=== PATIENT | female | born 1980 | race Caucasian/White ===

== ENCOUNTER 2018-01-14 14:02 | Emergency (ER) | payer OTHER ==
--- NOTE | 2018-01-14 15:33 | EDPHYS ---
Physician Documentation [facility] Name: Ana Davis Age: 37 yrs Sex: Female : 1980 Arrival Date: 01/14/2018 Time: 14:07 Bed 19 Private MD: None, None ED Physician Herman Cortez HPI: 01/14 14:33 This 37 yrs old Female presents to ER via Ambulatory with complaints of snw Weakness, Sore Throat. 14:33 The patient presents with sore throat. snw 14:33 The patient presents with sore throat. The patient describes throat pain as raw. Onset: snw The symptoms/episode began/occurred suddenly, yesterday. Severity of symptoms: At their worst the symptoms were moderate. Associated signs and symptoms: Pertinent positives: flu-like symptoms, malaise, Sore throat. The patient has not experienced similar symptoms in the past. It is unknown whether or not the patient has recently seen a physician. 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 - Social history:: Smoking status: Patient/guardian denies using tobacco. - Ebola Screening: : Patient negative for fever greater than or equal to 101.5 degrees Fahrenheit, and additional compatible Ebola Virus Disease symptoms Patient denies exposure to infectious person Patient denies travel to an Ebola-affected area in the 21 days before illness onset No symptoms or risks identified at this time. ROS: 14:32 Constitutional: Negative for fever, chills, and weight loss, fatigue and malaise x yest snw and today Eyes: Negative for injury, pain, redness, and discharge, ENT: Negative for injury and discharge, + sore throat Neck: Negative for injury, pain, and swelling, Cardiovascular: Negative for chest pain, palpitations, and edema, Respiratory: Negative for shortness of breath, cough, wheezing, and pleuritic chest pain, Abdomen/GI: Negative for abdominal pain, nausea, vomiting, diarrhea, and constipation, Back: Negative for injury and pain, : Negative for injury, bleeding, discharge, and swelling, MS/Extremity: Negative for injury and deformity, Skin: Negative for injury, rash, and discoloration, Neuro: Negative for headache, weakness, numbness, tingling, and seizure. Exam: 14:31 Constitutional: This is a well developed, well nourished patient who is awake, alert, snw and in no acute distress. Head/Face: Normocephalic, atraumatic. Eyes: Pupils equal round and reactive to light, extra-ocular motions intact. Lids and lashes normal. Conjunctiva and sclera are non-icteric and not injected. Cornea within normal limits. Periorbital areas with no swelling, redness, or edema. ENT: Nares patent. No nasal discharge, no septal abnormalities noted. Tympanic membrane normal to right, fluid visible behind TM left and external auditory canals are clear. Oropharynx with mild redness, no swelling, or masses, exudates, or evidence of obstruction, uvula midline. Mucous membranes moist. Neck: Trachea midline, no thyromegaly or masses palpated, and no cervical lymphadenopathy. Supple, full range of motion without nuchal rigidity, or vertebral point tenderness. No Meningismus. Chest/axilla: Normal chest wall appearance and motion. Nontender with no deformity. No lesions are appreciated. Cardiovascular: Regular rate and rhythm with a normal S1 and S2. No gallops, murmurs, or rubs. Normal PMI, no JVD. No pulse deficits. Respiratory: Lungs have equal breath sounds bilaterally, clear to auscultation and percussion. No rales, rhonchi or wheezes noted. No increased work of breathing, no retractions or nasal flaring. Abdomen/GI: Soft, non-tender, with normal bowel sounds. No distension or tympany. No guarding or rebound. No evidence of tenderness throughout. Back: No spinal tenderness. No costovertebral tenderness. Full range of motion. Skin: Warm, dry with normal turgor. Normal color with no rashes, no lesions, and no evidence of cellulitis. MS/ Extremity: Pulses equal, no cyanosis. Neurovascular intact. Full, normal range of motion. Neuro: Awake and alert, GCS 15, oriented to person, place, time, and situation. Cranial nerves II-XII grossly intact. Motor strength 5/5 in all extremities. Sensory grossly intact. Cerebellar exam normal. Normal gait. Vital Signs: 14:19 BP 110 / 69; Pulse 75 MON; Resp 14 S; Temp 98.7; Pulse Ox 97% on R/A; Weight 58.06 kg sg (R); Pain 3/10; MDM: 14:19 Patient medically screened. snw 15:36 Data reviewed: vital signs, nurses notes. Data interpreted: Pulse oximetry: on room air snw is 97 %. Interpretation: normal. Counseling: I had a detailed discussion with the patient and/or guardian regarding: the historical points, exam findings, and any diagnostic results supporting the discharge/admit diagnosis, lab results, the need for outpatient follow up, to return to the emergency department if symptoms worsen or persist or if there are any questions or concerns that arise at home. Special discussion: Based on the history and exam findings, there is no indication for further emergent testing or inpatient evaluation. I discussed with the patient/guardian the need to see the primary care provider for further evaluation of the symptoms. 01/14 14:19 Order name: Strep; Complete Time: 15:30 snw 01/14 15:25 Order name: Throat Culture EDMS Administered Medications: 16:17 Not Given (Patient Refused): Decadron 8 mg PO once aj1 Disposition: 01/15 06:46 Co-signature as Attending Physician, Herman Cortez MD I agree with the assessment and janet plan of care. Disposition: 01/14/18 15:33 Discharged to Home. Impression: Acute pharyngitis. - Condition is Stable. - Discharge Instructions: Pharyngitis, Rehydration, Adult. - Medication Reconciliation Form, Thank You Letter, Antibiotic Education, Prescription Opioid Use form. - Follow up: Private Physician; When: 2 - 3 days; Reason: Recheck today's complaints, Continuance of care, Re-evaluation by your physician. Follow up: Emergency Department; When: As needed; Reason: Worsening of condition. - Problem is new. - Symptoms are unchanged. Signatures: Dispatcher [employer] EDMacey Ga RN RN aj1 Jasbir Landers RN RN sg Anderson, Corey, MD MD cha Therrien, Shelly, SUPERVISOR PROP MAKING-C SUPERVISOR PROP MAKING-Csnw Corrections: (The following items were deleted from the chart) 01/14 16:19 15:33 01/14/2018 15:33 Discharged to Home. Impression: Acute pharyngitis. Condition is aj1 Stable. Forms are Medication Reconciliation Form, Thank You Letter, Antibiotic Education, Prescription Opioid Use. Follow up: Private Physician; When: 2 - 3 days; Reason: Recheck today's complaints, Continuance of care, Re-evaluation by your physician. Follow up: Emergency Department; When: As needed; Reason: Worsening of condition. Problem is new. Symptoms are unchanged. snw
--- NOTE | 2018-01-14 15:33 | ER ---
Nurse's Notes [facility] Name: Ana Davis Age: 37 yrs Sex: Female : 1980 Arrival Date: 01/14/2018 Time: 14:07 Bed 19 Private MD: None, None Diagnosis: Acute pharyngitis Presentation: 01/14 14:18 Presenting complaint: Patient states: Fatigue that started about two days ago, reports sg sore throat today with white patches in back of throat. Transition of care: patient was not received from another setting of care. No acute neurological deficit is noted. Onset of symptoms was January 14, 2018. Risk Assessment: Do you want to hurt yourself or someone else? Patient reports no desire to harm self or others. Initial Sepsis Screen: Does the patient meet any 2 criteria? No. Patient's initial sepsis screen is negative. Does the patient have a suspected source of infection? No. Patient's initial sepsis screen is negative. Care prior to arrival: None. 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 - Social history:: Smoking status: Patient/guardian denies using tobacco. - Ebola Screening: : Patient negative for fever greater than or equal to 101.5 degrees Fahrenheit, and additional compatible Ebola Virus Disease symptoms Patient denies exposure to infectious person Patient denies travel to an Ebola-affected area in the 21 days before illness onset No symptoms or risks identified at this time. Screenin:07 Abuse screen: Denies threats or abuse. Denies injuries from another. Nutritional aj1 screening: No deficits noted. Tuberculosis screening: No symptoms or risk factors identified. 16:19 Fall Risk None identified. aj1 Assessment: 15:07 General: Appears in no apparent distress. uncomfortable, Reports fatigue for. Pain: aj1 Complains of pain in left aspect of posterior pharynx and right aspect of posterior pharynx. Neuro: Level of Consciousness is awake, alert, obeys commands. Cardiovascular: Patient's skin is warm and dry. Respiratory: Airway is patent Respiratory effort is even, unlabored, Respiratory pattern is regular, symmetrical. GI: No signs and/or symptoms were reported involving the gastrointestinal system. : No signs and/or symptoms were reported regarding the genitourinary system. EENT: Throat is reddened bilaterally Reports pain with swallowing. Derm: No signs and/or symptoms reported regarding the dermatologic system. Skin is pink, warm \T\ dry. normal. Musculoskeletal: No signs and/or symptoms reported regarding the musculoskeletal system. Circulation, motion, and sensation intact. 16:18 Reassessment: Patient appears in no apparent distress at this time. No changes from aj1 previously documented assessment. Patient and/or family updated on plan of care and expected duration. Pain level reassessed. Patient is alert, oriented x 3, equal unlabored respirations, skin warm/dry/pink. Vital Signs: 14:19 BP 110 / 69; Pulse 75 MON; Resp 14 S; Temp 98.7; Pulse Ox 97% on R/A; Weight 58.06 kg sg (R); Pain 3/10; ED Course: 14:07 Patient arrived in ED. sb2 14:08 None, None is Private Physician. sb2 14:18 Triage completed. sg 14:19 Kajal Villa F[facility]-C [facility]. snw 14:19 Herman Cortez MD is Attending Physician. snw 14:27 Macey Davis, IVY is Primary Nurse. aj1 15:07 Patient has correct armband on for positive identification. Bed in low position. Call aj1 light in reach. Side rails up X 1. 15:07 No provider procedures requiring assistance completed. aj1 16:18 Patient did not have IV access during this emergency room visit. aj1 Administered Medications: 16:17 Not Given (Patient Refused): Decadron 8 mg PO once aj1 Outcome: 15:33 Discharge ordered by . snw 16:19 Discharged to home ambulatory. aj1 16:19 Condition: good 16:19 Discharge instructions given to patient, Instructed on discharge instructions, follow up and referral plans. Demonstrated understanding of instructions, follow-up care. 16:19 Patient left the ED. aj1 Signatures: Macey Davis RN RN aj Jasbir Landers RN RN Kajal Villa FNP-C FNP-Csnw Kavitha Tejeda sb2
[2018-01-14] MEDS ORDERED: DEXAMETHASONE 4 MG TAB ONE (16:04)
== END 2018-01-14 16:19 | disposition home or self-care (01) ==
LOC: ER 14:02
DX: J02.9 Acute pharyngitis, unspecified (principal); Z88.1 Allergy status to other antibiotic agents
CPT/HCPCS: 87070; 87081; 99281

== ENCOUNTER 2018-03-23 20:22 | Emergency (ER) | payer OTHER ==
--- NOTE | 2018-03-23 22:08 | EDPHYS ---
Physician Documentation [facility] Name: Ana Davis Age: 37 yrs Sex: Female : 1980 Arrival Date: 03/23/2018 Time: 20:23 Bed 17 Private MD: ED Physician Herman Cortez HPI: 03/23 22:04 This 37 yrs old Female presents to ER via Ambulatory with complaints of Nasal snw Congestion, Body Aches. 22:04 The patient or guardian reports flu symptoms, arthralgias, low-grade fever, myalgias, snw no appetite. Onset: The symptoms/episode began/occurred acutely. Severity of symptoms: At their worst the symptoms were moderate. Associated signs and symptoms: The patient has no apparent associated signs or symptoms. The patient has not experienced similar symptoms in the past, but family has similar symptoms, daughter. The patient has not recently seen a physician. 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 - Social history:: Smoking status: Patient/guardian denies using tobacco. - Ebola Screening: : No symptoms or risks identified at this time. ROS: 22:04 Eyes: Negative for injury, pain, redness, and discharge, ENT: Negative for injury, snw pain, and discharge, Neck: Negative for injury, pain, and swelling, Cardiovascular: Negative for chest pain, palpitations, and edema, Respiratory: Negative for shortness of breath, cough, wheezing, and pleuritic chest pain. 22:04 Abdomen/GI: Negative for abdominal pain, nausea, vomiting, diarrhea, and constipation. 22:04 : Negative for injury, bleeding, discharge, and swelling, MS/Extremity: Negative for injury and deformity, Skin: Negative for injury, rash, and discoloration, Neuro: Negative for headache, weakness, numbness, tingling, and seizure. 22:04 Constitutional: Positive for body aches, fever, malaise, poor PO intake. 22:04 Back: Positive for pain at rest, of the low back area. Exam: 22:02 Head/Face: Normocephalic, atraumatic. Eyes: Pupils equal round and reactive to light, snw extra-ocular motions intact. Lids and lashes normal. Conjunctiva and sclera are non-icteric and not injected. Cornea within normal limits. Periorbital areas with no swelling, redness, or edema. 22:02 Neck: Trachea midline, no thyromegaly or masses palpated, and no cervical lymphadenopathy. Supple, full range of motion without nuchal rigidity, or vertebral point tenderness. No Meningismus. Chest/axilla: Normal chest wall appearance and motion. Nontender with no deformity. No lesions are appreciated. Cardiovascular: Regular rate and rhythm with a normal S1 and S2. No gallops, murmurs, or rubs. Normal PMI, no JVD. No pulse deficits. Respiratory: Lungs have equal breath sounds bilaterally, clear to auscultation and percussion. No rales, rhonchi or wheezes noted. No increased work of breathing, no retractions or nasal flaring. Abdomen/GI: Soft, non-tender, with normal bowel sounds. No distension or tympany. No guarding or rebound. No evidence of tenderness throughout. Back: No spinal tenderness. No costovertebral tenderness. Full range of motion. Skin: Warm, dry with normal turgor. Normal color with no rashes, no lesions, and no evidence of cellulitis. MS/ Extremity: Pulses equal, no cyanosis. Neurovascular intact. Full, normal range of motion. Neuro: Awake and alert, GCS 15, oriented to person, place, time, and situation. Cranial nerves II-XII grossly intact. Motor strength 5/5 in all extremities. Sensory grossly intact. Cerebellar exam normal. Normal gait. 22:02 Constitutional: The patient appears alert, awake, anxious. 22:02 ENT: External ear(s): are unremarkable, Ear canal(s): are normal, TM's: are normal, Nose: Nasal mucosa: edematous, Mouth: is normal, Posterior pharynx: is normal, Voice: is normal. Vital Signs: 20:57 BP 141 / 67; Pulse 98; Resp 16; Temp 99.8(O); Pulse Ox 100% on R/A; Weight 58.06 kg; lp1 Height 5 ft. 8 in. (172.72 cm); Pain 5/10; 22:37 BP 135 / 60; Pulse 88; Resp 18; Temp 98.7(O); Pulse Ox 99% ; ea 20:57 Body Mass Index 19.46 (58.06 kg, 172.72 cm) lp1 MDM: 21:51 Patient medically screened. [facility] 22:08 Data reviewed: vital signs, nurses notes. Data interpreted: Pulse oximetry: on room air snw is 100 %. Interpretation: normal. Counseling: I had a detailed discussion with the patient and/or guardian regarding: the historical points, exam findings, and any diagnostic results supporting the discharge/admit diagnosis, the presence of at least one elevated blood pressure reading (>120/80) during this emergency department visit, lab results, the need for outpatient follow up, to return to the emergency department if symptoms worsen or persist or if there are any questions or concerns that arise at home. Special discussion: Based on the history and exam findings, there is no indication for further emergent testing or inpatient evaluation. I discussed with the patient/guardian the need to see the primary care provider for further evaluation of the symptoms. 03/23 21:02 Order name: Flu; Complete Time: 21:48 lp1 03/23 21:02 Order name: Strep; Complete Time: 21:46 lp1 03/23 21:46 Order name: Throat Culture EDMS 03/23 22:02 Order name: Urine Culture snw 03/23 22:02 Order name: Urine Microscopic Only; Complete Time: 22:25 snw 03/23 22:08 Order name: Urine Dipstick--Ancillary (enter results); Complete Time: 22:25 ms 03/23 22:02 Order name: Urine Test (obtain specimen); Complete Time: 22:06 snw 03/23 22:02 Order name: Urine Dipstick-Ancillary (obtain specimen); Complete Time: 22:06 snw 03/23 22:08 Order name: Urine --Ancillary (enter results); Complete Time: 22:25 ms Administered Medications: No medications were administered Disposition: 03/24 07:39 Co-signature as Attending Physician, Herman Cortez MD I agree with the assessment and [facility] plan of care. Disposition: 03/23/18 22:07 Discharged to Home. Impression: Viral infection, unspecified. - Condition is Stable. - Discharge Instructions: Fever, Adult, Viral Respiratory Infection, Rehydration, Adult. - Prescriptions for Diclofenac Sodium 75 mg Oral Tablet Sustained Release - take 1 tablet by ORAL route 2 times per day; 30 tablet. orphenadrine citrate 100 mg Oral Tablet Sustained Release - take 1 tablet by ORAL route 2 times per day As needed; 20 tablet. - Work release form, Medication Reconciliation Form, Thank You Letter, Antibiotic Education, Prescription Opioid Use form. - Follow up: Private Physician; When: 2 - 3 days; Reason: Recheck today's complaints, Continuance of care, Re-evaluation by your physician. Signatures: Dispatcher [employer] EDMS Herman Cortez MD MD cha Therrien, Shelly, JOINT TERMINAL ATTACK CONTROLLER-C JOINT TERMINAL ATTACK CONTROLLER-Csnw Anna Edmond, RN RN lp1 Rachel Easley RN RN ea Corrections: (The following items were deleted from the chart) 03/23 22:38 22:07 03/23/2018 22:07 Discharged to Home. Impression: Viral infection, unspecified. ea Condition is Stable. Forms are Medication Reconciliation Form, Thank You Letter, Antibiotic Education, Prescription Opioid Use. Follow up: Private Physician; When: 2 - 3 days; Reason: Recheck today's complaints, Continuance of care, Re-evaluation by your physician. snw
--- NOTE | 2018-03-23 22:08 | ER ---
Nurse's Notes [facility] Name: Ana Davis Age: 37 yrs Sex: Female : 1980 Arrival Date: 03/23/2018 Time: 20:23 Bed 17 Private MD: Diagnosis: Viral infection, unspecified Presentation: 03/23 20:55 Presenting complaint: Patient states: Cough, congestion, sore throat, generalized lp1 weakness since last night; States daughter had virus but she wants to make sure she doesn't have flu or strep throat, low grade fevers at home. Transition of care: patient was not received from another setting of care. Onset of symptoms was March 23, 2018. Risk Assessment: Do you want to hurt yourself or someone else? Patient reports no desire to harm self or others. Initial Sepsis Screen: Does the patient meet any 2 criteria? No. Patient's initial sepsis screen is negative. Does the patient have a suspected source of infection? No. Patient's initial sepsis screen is negative. Care prior to arrival: None. 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 - Social history:: Smoking status: Patient/guardian denies using tobacco. - Ebola Screening: : No symptoms or risks identified at this time. Screenin:37 Abuse screen: Denies threats or abuse. Nutritional screening: No deficits noted. ea Tuberculosis screening: No symptoms or risk factors identified. Fall Risk None identified. Assessment: 22:36 Reassessment: Discharge instructions given to patient, verbalized the understanding of ea instruction. General: Appears in no apparent distress. Behavior is calm, cooperative, appropriate for age. Pain: Denies pain. Neuro: Level of Consciousness is awake, alert, obeys commands, Oriented to person, place, time, situation. Cardiovascular: Patient's skin is warm and dry. Respiratory: Airway is patent Respiratory effort is even, unlabored, Respiratory pattern is regular, symmetrical, Breath sounds are clear bilaterally. Derm: Skin is pink, warm \T\ dry. Vital Signs: 20:57 BP 141 / 67; Pulse 98; Resp 16; Temp 99.8(O); Pulse Ox 100% on R/A; Weight 58.06 kg; lp1 Height 5 ft. 8 in. (172.72 cm); Pain 5/10; 22:37 BP 135 / 60; Pulse 88; Resp 18; Temp 98.7(O); Pulse Ox 99% ; ea 20:57 Body Mass Index 19.46 (58.06 kg, 172.72 cm) lp1 ED Course: 20:23 Patient arrived in ED. ds1 20:42 Kajal Villa [facility]-C [facility]. snw 20:42 Herman Cortez MD is Attending Physician. snw 20:56 Triage completed. lp1 20:57 Arm band placed on right wrist. lp1 21:02 Flu and/or RSV swab sent to lab. Strep swab sent to lab. lp1 22:06 Rachel Easley, RN is Primary Nurse. ea 22:37 No provider procedures requiring assistance completed. Patient did not have IV access ea during this emergency room visit. Administered Medications: No medications were administered Outcome: 22:07 Discharge ordered by . snw 22:37 Discharged to home ambulatory. ea 22:37 Condition: improved 22:37 Discharge instructions given to patient, Instructed on discharge instructions, follow up and referral plans. medication usage, Demonstrated understanding of instructions, follow-up care, medications, Prescriptions given X 2. 22:38 Patient left the ED. ea Signatures: Kajal Villa FNP-C FNP-Janet Vega ds1 Anna Edmond, RN RN lp1 Rachel Easley, IVY RN ea
[2018-03-23 22:24] LABS: Urine Bacteria <20 /HPF (<20); Urine Culture Reflex Order NOT NEEDED; Urine Mucus 1+ /HPF (NONE SEEN); Urine RBC <5 /HPF (NONE SEEN)
[2018-03-23 22:25] LABS: Urine Blood NEGATIVE (NEG); Urine Glucose NEGATIVE (NEG); Urine Protein NEGATIVE (NEG)
== END 2018-03-23 22:38 | disposition home or self-care (01) ==
LOC: ER 20:22
DX: B34.9 Viral infection, unspecified (principal); Z88.1 Allergy status to other antibiotic agents
CPT/HCPCS: 81003; 81015; 81025; 87070; 87081; 87086; 87088; 87804; 99283

== ENCOUNTER 2018-07-30 20:52 | Emergency (ER) | payer OTHER ==
[2018-07-30 22:35] LABS: Absolute Lymphocytes (CBC) 1.9 K/uL (0.7-4.9); Absolute Monocytes 0.5 K/uL (0.1-1.3); Absolute Neutrophil 4.4 K/uL (1.8-8.0); Basophils % 0.4 % (0-1.3); Hematocrit 39.1 % (36.0-45.0); Lymphocytes % 27.6 % (15.3-44.8); MPV 9.8 fL (7.6-11.3); Monocytes % 6.6 % (3.3-12.3); RBC Red Blood Cell Count 4.21 M/uL (3.86-4.86)
[2018-07-30 22:37] LABS: Protime INR 1.03
[2018-07-30 22:51] LABS: BUN Blood Urea Nitrogen 20 mg/dL (7-18); Bicarbonate 29 mmol/L (21-32); Glucose Level 94 mg/dL (74-106); Potassium 3.8 mmol/L (3.5-5.1); Sodium Level 139 mmol/L (136-145)
[2018-07-30 22:52] LABS: ALT/SGPT 30 U/L (12-78); AST/SGOT 18 U/L (15-37); Albumin 4.1 g/dL (3.4-5.0); Alkaline Phosphatase 61 U/L (45-117); Bilirubin Direct < 0.1 mg/dL (0-0.2); Bilirubin Total 0.3 mg/dL (0.2-1.0); Magnesium 2.2 mg/dL (1.8-2.4); NT PRO-BNP 45 pg/mL (<125); Protein, Total 7.3 g/dL (6.4-8.2); Troponin (Emerg Dept Use Only) < 0.02 ng/mL (0.0-0.045)
--- NOTE | 2018-07-31 00:42 | EDPHYS ---
Physician Documentation [facility] Name: Ana Davis Age: 37 yrs Sex: Female : 1980 Arrival Date: 07/30/2018 Time: 20:54 Bed 5 Private MD: ED Physician Epi Wilson HPI: 07/31 00:04 This 37 yrs old Female presents to ER via Ambulatory with complaints of Chest tw4 Pain, Arm Pain. 00:04 The patient or guardian reports chest pain that is located primarily in the substernal tw4 area. The pain does not radiate. Associated signs and symptoms: The patient has no apparent associated signs or symptoms. The chest pain is described as dull. Duration: The patient or guardian reports a single episode, that is now resolved. Duration: The patient or guardian reports a single episode, that lasted 5 minute(s). Modifying factors: The symptoms are alleviated by nothing. the symptoms are aggravated by nothing. The patient has not recently seen a physician. 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 - Social history:: Smoking status: Patient/guardian denies using tobacco. - Ebola Screening: : Patient denies travel to an Ebola-affected area in the 21 days before illness onset. ROS: 07/31 00:04 Constitutional: Negative for fever, chills, and weight loss, Eyes: Negative for injury, tw4 pain, redness, and discharge, Respiratory: Negative for shortness of breath, cough, wheezing, and pleuritic chest pain, Abdomen/GI: Negative for abdominal pain, nausea, vomiting, diarrhea, and constipation, Back: Negative for injury and pain, MS/Extremity: Negative for injury and deformity, Skin: Negative for injury, rash, and discoloration, Neuro: Negative for headache, weakness, numbness, tingling, and seizure. Cardiovascular: Positive for chest pain, Negative for edema, orthopnea, palpitations. Exam: 00:04 Constitutional: This is a well developed, well nourished patient who is awake, alert, tw4 and in no acute distress. Head/Face: Normocephalic, atraumatic. Chest/axilla: Normal chest wall appearance and motion. Nontender with no deformity. No lesions are appreciated. Cardiovascular: Regular rate and rhythm with a normal S1 and S2. No gallops, murmurs, or rubs. Normal PMI, no JVD. No pulse deficits. Respiratory: Lungs have equal breath sounds bilaterally, clear to auscultation and percussion. No rales, rhonchi or wheezes noted. No increased work of breathing, no retractions or nasal flaring. Abdomen/GI: Soft, non-tender, with normal bowel sounds. No distension or tympany. No guarding or rebound. No evidence of tenderness throughout. Back: No spinal tenderness. No costovertebral tenderness. Full range of motion. MS/ Extremity: Pulses equal, no cyanosis. Neurovascular intact. Full, normal range of motion. Neuro: Awake and alert, GCS 15, oriented to person, place, time, and situation. Cranial nerves II-XII grossly intact. Motor strength 5/5 in all extremities. Sensory grossly intact. Cerebellar exam normal. Normal gait. Vital Signs: 07/30 21:04 BP 129 / 76; Pulse 85; Resp 18; Temp 97.8; Pulse Ox 99% on R/A; Weight 60.78 kg (R); aj1 Height 5 ft. 8 in. (172.72 cm) (R); Pain 2/10; 23:00 BP 113 / 76; Pulse 73; Resp 17; Pulse Ox 100% on R/A; Pain 0/10; tl1 07/31 00:32 BP 109 / 59; Pulse 75; Resp 17; Pulse Ox 99% on R/A; Pain 0/10; tl1 07/30 21:04 Body Mass Index 20.37 (60.78 kg, 172.72 cm) aj1 MDM: 07/30 21:17 Patient medically screened. tw4 07/31 00:40 Differential diagnosis: abnormal EKG, acute myocardial infarction, coronary artery tw4 disease chest wall pain, pulmonary embolus, thoracic aortic disection. Data reviewed: vital signs, nurses notes. Data interpreted: night monitor: rhythm is normal sinus rhythm, Pulse oximetry: Interpretation: normal. Test interpretation: by ED physician or midlevel provider: ECG. Counseling: I had a detailed discussion with the patient and/or guardian regarding: the historical points, exam findings, and any diagnostic results supporting the discharge/admit diagnosis, lab results, radiology results. Special discussion: Based on the patient's history, exam, and Dx evaluation, there is no indication for emergent intervention or inpatient Tx. It is understood by the patient/guardian that if the Sx's persist or worsen they need to return immediately for re-evaluation. I discussed with the patient/guardian in detail that at this point there is no indication for admission to the hospital. It is understood, however, that if the symptoms persist or worsen the patient needs to return immediately for re-evaluation. 07/30 21:23 Order name: Basic Metabolic Panel; Complete Time: 23:25 tw07/30 23:25 Interpretation: Normal except: BUN 20; GFR 71. tw07/30 21:23 Order name: CBC with Diff; Complete Time: 23:46 tw4 07/30 23:46 Interpretation: Abnormal: RDW 12.0. tw07/30 21:23 Order name: LFT's [facility] 07/30 21:23 Order name: Magnesium tw 07/30 21:23 Order name: NT PRO-BNP 07/30 21:23 Order name: PT-INR 07/30 21:23 Order name: Troponin (emerg Dept Use Only) tw 07/30 21:23 Order name: EKG; Complete Time: 22:25 tw07/30 21:23 Order name: Cardiac monitoring; Complete Time: 21:28 07/30 21:23 Order name: EKG - Nurse/Tech; Complete Time: 21:28 07/30 21:23 Order name: IV Saline Lock; Complete Time: 21:28 07/30 22:23 Order name: Chest Single View EDDC 07/30 23:47 Order name: Troponin (emerg Dept Use Only); Complete Time: 00:40 07/30 21:23 Order name: Labs collected and sent; Complete Time: 21:28 tw07/30 21:23 Order name: O2 Per Protocol; Complete Time: 21:28 07/30 21:23 Order name: O2 Sat Monitoring; Complete Time: 21:28 EC:04 Rate is 86 beats/min. Rhythm is regular. QRS [place] is Normal. [place] interval is normal. QRS tw4 interval is normal. QT interval is normal. No Q waves. T waves are Normal. No ST changes noted. Clinical impression: Normal ECG. Interpreted by me. Reviewed by me. Administered Medications: No medications were administered Disposition: 07/31/18 00:41 Discharged to Home. Impression: Chest pain, unspecified. - Condition is Stable. - Discharge Instructions: Nonspecific Chest Pain, Pain Without a Known Cause, Nonspecific Chest Pain, [id number]. - Prescriptions for Ibuprofen 600 mg Oral Tablet - take 1 tablet by ORAL route every 6 hours As needed take with food; 30 tablet. - Medication Reconciliation Form, Thank You Letter, Antibiotic Education, Prescription Opioid Use form. - Follow up: Private Physician; When: Upon discharge from the Emergency Department; Reason: If symptoms return, Recheck today's complaints, Continuance of care. Follow up: Rudi Delacruz MD; When: Upon discharge from the Emergency Department; Reason: If symptoms return, Recheck today's complaints, Continuance of care. - Problem is new. - Symptoms have improved. Signatures: Dispatcher [employer] [facility] Macey Davis RN RN aj1 Bessy Clifford RN RN tl1 Epi Wilson MD MD tw4 Corrections: (The following items were deleted from the chart) 07/30 22:57 22:25 Chest Single View+RAD.RAD.BRZ ordered. [facility] 07/31 00:42 00:41 07/31/2018 00:41 Discharged to Home. Impression: Chest pain, unspecified. tw4 Condition is Stable. Forms are Medication Reconciliation Form, Thank You Letter, Antibiotic Education, Prescription Opioid Use. Follow up: Private Physician; When: Upon discharge from the Emergency Department; Reason: If symptoms return, Recheck today's complaints, Continuance of care. Problem is new. Symptoms have improved. tw4 01:11 00:42 07/31/2018 00:41 Discharged to Home. Impression: Chest pain, unspecified. tl1 Condition is Stable. Discharge Instructions: Nonspecific Chest Pain, Pain Without a Known Cause, Nonspecific Chest Pain, Xrut-in-Hdxe. Prescriptions for Ibuprofen 600 mg Oral Tablet - take 1 tablet by ORAL route every 6 hours As needed take with food; 30 tablet. and Forms are Medication Reconciliation Form, Thank You Letter, Antibiotic Education, Prescription Opioid Use. Follow up: Private Physician; When: Upon discharge from the Emergency Department; Reason: If symptoms return, Recheck today's complaints, Continuance of care. Follow up: Rudi Delacruz; When: Upon discharge from the Emergency Department; Reason: If symptoms return, Recheck today's complaints, Continuance of care. Problem is new. Symptoms have improved. tw4
--- NOTE | 2018-07-31 00:42 | ER ---
Nurse's Notes [facility] Name: Ana Davis Age: 37 yrs Sex: Female : 1980 Arrival Date: 07/30/2018 Time: 20:54 Bed 5 Private MD: Diagnosis: Chest pain, unspecified Presentation: 07/30 21:01 Presenting complaint: Patient states: "I've gone to several doctors in the past couple aj1 weeks I had an ultrasound and a colonscopy and nothing was found but I have a pain going down my leg so I have a CAT scan set up for a week from tomorrow. Last night I had a weird feeling in my chest. It was gone this morning, but I felt some pressure while I was working out. Then tonight after we ate at [employer] I started having more pain." Reports left sided chest pain that radiates to the left arm and the left side of her back. 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 Transition of care: patient was not received from another setting of care. Onset of symptoms was July 30, 2018. Risk Assessment: Do you want to hurt yourself or someone else? Patient reports no desire to harm self or others. Initial Sepsis Screen: Does the patient meet any 2 criteria? No. Patient's initial sepsis screen is negative. Does the patient have a suspected source of infection? No. Patient's initial sepsis screen is negative. Care prior to arrival: None. 21:01 Method Of Arrival: Ambulatory aj1 21:01 Acuity: CHIP 3 aj1 Triage Assessment: 21:04 General: Appears in no apparent distress. comfortable, Behavior is calm, cooperative, aj1 appropriate for age. Pain: Complains of pain in anterior aspect of left upper chest and left breast Pain radiates to back and left arm Pain currently is 2 out of 10 on a pain scale. Quality of pain is described as pressure, Is intermittent. Neuro: Level of Consciousness is awake, alert, obeys commands. Cardiovascular: Reports chest pain, Patient's skin is warm and dry. Respiratory: Airway is patent Respiratory effort is even, unlabored, Respiratory pattern is regular, symmetrical. 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 - Social history:: Smoking status: Patient/guardian denies using tobacco. - Ebola Screening: : Patient denies travel to an Ebola-affected area in the 21 days before illness onset. Screenin:27 Abuse screen: Denies threats or abuse. Denies injuries from another. Nutritional tl1 screening: No deficits noted. Tuberculosis screening: No symptoms or risk factors identified. Fall Risk IV access (20 points). Assessment: 21:25 General: Appears in no apparent distress. Behavior is calm, cooperative, appropriate tl1 for age. Pain: Complains of pain in left arm and back and chest and left breast and anterior aspect of left upper chest Pain began 1 day ago. Neuro: Level of Consciousness is awake, alert, obeys commands, Oriented to person, place, time, situation. Cardiovascular: Reports chest pain, Capillary refill < 3 seconds JVD is absent Patient's skin is warm and dry. Respiratory: Airway is patent Trachea midline Respiratory effort is even, unlabored, Breath sounds are clear bilaterally. GI: Abdomen is non-distended, Bowel sounds present X 4 quads. Abd is soft and non tender X 4 quads. : No signs and/or symptoms were reported regarding the genitourinary system. EENT: No signs and/or symptoms were reported regarding the EENT system. 21:26 Pain: Pain currently is 2 out of 10 on a pain scale. tl1 Vital Signs: 21:04 BP 129 / 76; Pulse 85; Resp 18; Temp 97.8; Pulse Ox 99% on R/A; Weight 60.78 kg (R); aj1 Height 5 ft. 8 in. (172.72 cm) (R); Pain 2/10; 23:00 BP 113 / 76; Pulse 73; Resp 17; Pulse Ox 100% on R/A; Pain 0/10; tl1 07/31 00:32 BP 109 / 59; Pulse 75; Resp 17; Pulse Ox 99% on R/A; Pain 0/10; tl1 07/30 21:04 Body Mass Index 20.37 (60.78 kg, 172.72 cm) [facility] ED Course: 07/30 20:54 Patient arrived in ED. es 21:04 Triage completed. aj1 21:04 Arm band placed on Patient placed in an exam room. aj1 21:04 Patient has correct armband on for positive identification. 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 Pulse tl1 ox on. NIBP on. 21:17 Epi Wilson MD is Attending Physician. tw4 21:24 Bessy Clifford, RN is Primary Nurse. tl1 21:27 No provider procedures requiring assistance completed. Inserted saline lock: 20 gauge tl1 in right antecubital area, using aseptic technique. Blood collected. Patient maintains SpO2 saturation greater than 95% on room air. 23:02 Chest Single View In Process Unspecified. EDMS 02 00:42 Rudi Delacruz MD is Referral Physician. tw4 01:10 IV discontinued, intact, bleeding controlled, No redness/swelling at site. Pressure tl1 dressing applied. Administered Medications: No medications were administered Outcome: 00:41 Discharge ordered by . tw4 01:10 Discharged to home ambulatory, with family. tl1 01:10 Condition: good 01:10 Discharge instructions given to patient, family, Instructed on discharge instructions, follow up and referral plans. medication usage, Demonstrated understanding of instructions, follow-up care, medications, Prescriptions given X 1. 01:11 Patient left the ED. tl1 Signatures: Dispatcher [employer] Macey Fontenot RN RN Karley Siddiqui Tonya, RN RN tl1 Epi Wilson MD MD tw4 Corrections: (The following items were deleted from the chart) 00:32 02/14 23:00 BP 109 / 59; Pulse 75bpm; Resp 17bpm; Pulse Ox 99% RA; Pain 0/10; tl1 tl1
--- NOTE | 2018-07-31 07:45 | EKG ---
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
--- NOTE | 2018-07-31 08:48 | RAD REPORT ---
EXAM DESCRIPTION: RAD - Chest Single View - 07/30/2018 11:01 pm CLINICAL HISTORY: Chest pain and pressure COMPARISON: None. TECHNIQUE: AP portable chest image was obtained 2238 hours . FINDINGS: Lungs are clear. Heart and vasculature are normal. No measurable pleural effusion and no p neumothorax. No acute bony abnormality seen. No acute aortic findings suspected. IMPRESSION: No acute cardiopulmonary process.
== END 2018-07-31 01:11 | disposition home or self-care (01) ==
LOC: ER 20:52
DX: R07.9 Chest pain, unspecified (principal); Z88.1 Allergy status to other antibiotic agents
CPT/HCPCS: 36415; 71045; 80048; 80076; 83735; 83880; 84484; 85025; 85610; 93005; 99285

== ENCOUNTER 2018-08-07 11:13 | Emergency (ER) | payer OTHER ==
--- NOTE | 2018-08-07 12:05 | ER ---
Nurse's Notes [facility] Name: Ana Davis Age: 37 yrs Sex: Female : 1980 Arrival Date: 08/07/2018 Time: 11:18 Bed 26 Private MD: Diagnosis: Panic disorder [episodic paroxysmal anxiety] without agoraphobia Presentation: 08/07 11:20 Presenting complaint: Patient states: Came from CT after having a CT with contrast ss obtained . Pt reports right after CT she suddenly felt her heart racing and anxiety increase. Pt is concerned because when they checked her blood pressure in CT it was high for her at 148/72 HR 95. Transition of care: patient was not received from another setting of care. Onset of symptoms was August 07, 2018. Risk Assessment: Do you want to hurt yourself or someone else? Patient reports no desire to harm self or others. Initial Sepsis Screen: Does the patient meet any 2 criteria? No. Patient's initial sepsis screen is negative. Does the patient have a suspected source of infection? No. Patient's initial sepsis screen is negative. Care prior to arrival: None. 11:20 Method Of Arrival: Ambulatory ss 11:20 Acuity: CHIP 3 ss 11:25 Risk Assessment: Do you want to hurt yourself or someone else? Patient reports no tw2 desire to harm self or others. Initial Sepsis Screen: Does the patient meet any 2 criteria? No. Patient's initial sepsis screen is negative. Does the patient have a suspected source of infection? No. Patient's initial sepsis screen is negative. Care prior to arrival: None. Triage Assessment: 11:20 General: Appears slender, well groomed, Behavior is anxious. 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 tw2 Historical: - Allergies: 11:25 Bactrim; tw2 - Home Meds: 11:25 None [Active]; tw2 - PMHx: 11:25 None; tw2 - PSHx: 11:25 None; tw2 - Immunization history:: Adult Immunizations. - Social history:: Smoking status: . - Ebola Screening: : Patient denies travel to an Ebola-affected area in the 21 days before illness onset. Screenin:25 Abuse screen: Denies threats or abuse. Nutritional screening: No deficits noted. tw2 Tuberculosis screening: No symptoms or risk factors identified. Fall Risk None identified. Assessment: 11:20 General: Appears in no apparent distress. Behavior is anxious. Pain: Denies pain. tw2 Neuro: Level of Consciousness is awake, alert, obeys commands, Oriented to person, place, time, situation. Cardiovascular: Reports palpitations, after IV contrast dye in CT. Respiratory: Airway is patent Respiratory effort is even, unlabored, Respiratory pattern is regular, symmetrical. GI: No signs and/or symptoms were reported involving the gastrointestinal system. : No signs and/or symptoms were reported regarding the genitourinary system. EENT: No signs and/or symptoms were reported regarding the EENT system. Musculoskeletal: Range of motion: intact in all extremities. 12:09 Reassessment: Patient appears in no apparent distress at this time. No changes from tw2 previously documented assessment. Patient and/or family updated on plan of care and expected duration. Pain level reassessed. Patient is alert, oriented x 3, equal unlabored respirations, skin warm/dry/pink. Vital Signs: 11:24 BP 138 / 88; Pulse 73; Resp 19; Pulse Ox 100% on R/A; tw2 11:25 Weight 58.97 kg; Height 5 ft. 8 in. (172.72 cm); ss 11:25 Pain 0/10; ss 12:09 BP 142 / 75; Pulse 66; Resp 17; Pulse Ox 99% on R/A; tw2 11:25 Body Mass Index 19.77 (58.97 kg, 172.72 cm) ED Course: 11:18 Patient arrived in ED. ss 11:19 Gilmer Tsang PA is PHCP. jr8 11:19 Pepe Medrano MD is Attending Physician. jr8 11:24 Robina Burnett, IVY is Primary Nurse. tw2 11:24 Arm band placed on. tw2 11:24 Bed in low position. Call light in reach. library monitor on. Pulse ox on. NIBP on. tw2 11:25 Triage completed. ss 11:25 EKG done, by phlebotomy services technician. reviewed by Gilmer ARNETT. at1 12:08 IV discontinued, intact, bleeding controlled, No redness/swelling at site. Pressure tw2 dressing applied, 22g IV right ac inserted by Jose Luis Amezcua from CT. 12:09 No provider procedures requiring assistance completed. tw2 Administered Medications: No medications were administered Outcome: 12:05 Discharge ordered by MD. fagan 12: Discharged to home ambulatory. tw 12: Condition: stable 12:09 Discharge instructions given to patient, friend, Instructed on discharge instructions, follow up and referral plans. Demonstrated understanding of instructions, follow-up care. 12:09 Patient left the ED. tw2 Signatures: Kaitlin Mcneill RN RN Gilmer Tsang PA PA jr8 Sabina Fontana, parts sales associate EKG Tat1 Robina Burnett, RN RN tw2
--- NOTE | 2018-08-07 12:05 | EDPHYS ---
Physician Documentation [facility] Name: Ana Davis Age: 37 yrs Sex: Female : 1980 Arrival Date: 08/07/2018 Time: 11:18 Bed 26 Private MD: ED Physician Pepe Medrano HPI: 08/07 11:53 This 37 yrs old Female presents to ER via Ambulatory with complaints of jr8 Anxiety. 11:53 Onset: The symptoms/episode began/occurred acutely, today. Associated signs and jr8 symptoms: Pertinent positives: palpitations. Modifying factors: The patient symptoms are alleviated by nothing, the patient symptoms are aggravated by nothing. The patient has not experienced similar symptoms in the past. The patient has not recently seen a physician. Patient had just finished having CT with IV contrast as out patient. Started to feel anxious and had palpitations. Was brought to ED at that time for further evaluation. 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 tw2 Historical: - Allergies: 11:25 Bactrim; tw2 - Home Meds: 11:25 None [Active]; tw2 - PMHx: 11:25 None; tw2 - PSHx: 11:25 None; tw2 - Immunization history:: Adult Immunizations. - Social history:: Smoking status: . - Ebola Screening: : Patient denies travel to an Ebola-affected area in the 21 days before illness onset. ROS: 11:53 Eyes: Negative for injury, pain, redness, and discharge, ENT: Negative for injury, jr8 pain, and discharge, Neck: Negative for injury, pain, and swelling, Respiratory: Negative for shortness of breath, cough, wheezing, and pleuritic chest pain, Abdomen/GI: Negative for abdominal pain, nausea, vomiting, diarrhea, and constipation, Back: Negative for injury and pain, MS/Extremity: Negative for injury and deformity, Skin: Negative for injury, rash, and discoloration, Neuro: Negative for headache, weakness, numbness, tingling, and seizure. 11:53 Cardiovascular: Positive for palpitations, Negative for chest pain, edema, orthopnea, paroxysmal nocturnal dyspnea. 11:53 Psych: Positive for anxiety. Exam: 11:53 Eyes: Pupils equal round and reactive to light, extra-ocular motions intact. Lids and jr8 lashes normal. Conjunctiva and sclera are non-icteric and not injected. Cornea within normal limits. Periorbital areas with no swelling, redness, or edema. ENT: Nares patent. No nasal discharge, no septal abnormalities noted. Tympanic membranes are normal and external auditory canals are clear. Oropharynx with no redness, swelling, or masses, exudates, or evidence of obstruction, uvula midline. Mucous membranes moist. Neck: Trachea midline, no thyromegaly or masses palpated, and no cervical lymphadenopathy. Supple, full range of motion without nuchal rigidity, or vertebral point tenderness. No Meningismus. Cardiovascular: Regular rate and rhythm with a normal S1 and S2. No gallops, murmurs, or rubs. Normal PMI, no JVD. No pulse deficits. Respiratory: Lungs have equal breath sounds bilaterally, clear to auscultation and percussion. No rales, rhonchi or wheezes noted. No increased work of breathing, no retractions or nasal flaring. Abdomen/GI: Soft, non-tender, with normal bowel sounds. No distension or tympany. No guarding or rebound. No evidence of tenderness throughout. Back: No spinal tenderness. No costovertebral tenderness. Full range of motion. Skin: Warm, dry with normal turgor. Normal color with no rashes, no lesions, and no evidence of cellulitis. MS/ Extremity: Pulses equal, no cyanosis. Neurovascular intact. Full, normal range of motion. Neuro: Awake and alert, GCS 15, oriented to person, place, time, and situation. Cranial nerves II-XII grossly intact. Motor strength 5/5 in all extremities. Sensory grossly intact. Cerebellar exam normal. Normal gait. Vital Signs: 11:24 BP 138 / 88; Pulse 73; Resp 19; Pulse Ox 100% on R/A; tw2 11:25 Weight 58.97 kg; Height 5 ft. 8 in. (172.72 cm); ss 11:25 Pain 0/10; ss 12:09 BP 142 / 75; Pulse 66; Resp 17; Pulse Ox 99% on R/A; tw2 11:25 Body Mass Index 19.77 (58.97 kg, 172.72 cm) MDM: 11:19 Patient medically screened. [facility] 11:53 Data reviewed: vital signs, nurses notes, EKG, and as a result, I will discharge jr8 patient. Data interpreted: Pulse oximetry: on room air is 100 %. Interpretation: normal. Counseling: I had a detailed discussion with the patient and/or guardian regarding: the historical points, exam findings, and any diagnostic results supporting the discharge/admit diagnosis, the need for outpatient follow up, a family practitioner, to return to the emergency department if symptoms worsen or persist or if there are any questions or concerns that arise at home. Response to treatment: the patient's symptoms have resolved after treatment. 11:53 ED course: Patient feeling much better after knowing ECG was normal and no other acute jr8 findings found. Will f/u with PCP for anxiety which she knows she has along with OCD since 10 years old. Currently not medicated but getter worse per patient . 08/07 11:53 Order name: EKG - Nurse/Tech; Complete Time: 11:53 jr8 Administered Medications: No medications were administered Disposition: 15:35 Co-signature as Attending Physician, Pepe Medrano MD I agree with the assessment and kdr plan of care. Disposition: 08/07/18 12:05 Discharged to Home. Impression: Panic disorder [episodic paroxysmal anxiety] without agoraphobia. - Condition is Stable. - Discharge Instructions: Panic Attacks. - Medication Reconciliation Form, Thank You Letter, Antibiotic Education, Prescription Opioid Use, Work release form form. - Follow up: Private Physician; When: 2 - 3 days; Reason: Recheck today's complaints, Continuance of care, Re-evaluation by your physician. - Problem is new. - Symptoms have improved. Signatures: Pepe Medrano MD MD kdr Roszak, Josh, PA PA jr8 Robina Burnett RN RN tw2 Corrections: (The following items were deleted from the chart) 12:09 12:05 08/07/2018 12:05 Discharged to Home. Impression: Panic disorder [episodic tw2 paroxysmal anxiety] without agoraphobia. Condition is Stable. Forms are Medication Reconciliation Form, Thank You Letter, Antibiotic Education, Prescription Opioid Use. Follow up: Private Physician; When: 2 - 3 days; Reason: Recheck today's complaints, Continuance of care, Re-evaluation by your physician. Problem is new. Symptoms have improved. jr8
--- NOTE | 2018-08-08 08:56 | EKG ---
Test Date: 2018-08-07 Test Time: 11:13:55 Senior Ruby Developer: YING MEASUREMENT RESULTS: Intervals: Rate: 84 ND: 116 QRSD: 86 QT: 394 QTc: 465 [place]: P: 67 ND: 116 QRS: 91 T: 57 INTERPRETIVE STATEMENTS: Normal sinus rhythm Rightward axis Borderline ECG Compared to ECG 07/30/2018 21:19:05 Right-axis deviation now present Electronically Signed On 08-08-18 08:55:35 AFRICAN HISTORY PROFESSOR by Rudi Delacruz
== END 2018-08-07 12:09 | disposition home or self-care (01) ==
LOC: ER 11:13
DX: F41.0 Panic disorder [episodic paroxysmal anxiety] (principal); Z88.1 Allergy status to other antibiotic agents
CPT/HCPCS: 93005; 99284

== ENCOUNTER 2018-08-09 18:22 | Emergency (ER) | payer OTHER ==
--- NOTE | 2018-08-09 18:54 | ER ---
Nurse's Notes [facility] Name: Ana Davis Age: 37 yrs Sex: Female : 1980 Arrival Date: 08/09/2018 Time: 18:25 Bed 27 Private MD: Diagnosis: Anxiety disorder, unspecified Presentation: 08/09 18:42 Presenting complaint: Patient states: My BP has been running high lately (140s) and I la1 just checked it at [facility] and it was high and I could see my heart beating through my shirt and it freaked me out. Transition of care: patient was not received from another setting of care. Onset of symptoms was August 09, 2018. Risk Assessment: Do you want to hurt yourself or someone else? Patient reports no desire to harm self or others. Initial Sepsis Screen: Does the patient meet any 2 criteria? No. Patient's initial sepsis screen is negative. Does the patient have a suspected source of infection? No. Patient's initial sepsis screen is negative. Care prior to arrival: None. 18:42 Method Of Arrival: Ambulatory la1 18:42 Acuity: CHIP 3 la1 Historical: - Allergies: 18:43 Bactrim; la1 - PMHx: 18:43 None; la1 - Immunization history:: Adult Immunizations not up to date. - Social history:: Smoking status: Patient/guardian denies using tobacco. - Ebola Screening: : No symptoms or risks identified at this time. Screenin:11 Abuse screen: Denies threats or abuse. Denies injuries from another. Nutritional rv screening: No deficits noted. Tuberculosis screening: No symptoms or risk factors identified. Fall Risk None identified. Assessment: 19:10 General: Appears in no apparent distress. uncomfortable, Behavior is anxious. Pain: rv Denies pain. Neuro: Level of Consciousness is awake, alert, obeys commands, Oriented to person, place, time, situation. Cardiovascular: Capillary refill < 3 seconds Rhythm is regular. Respiratory: Airway is patent. GI: No signs and/or symptoms were reported involving the gastrointestinal system. : No signs and/or symptoms were reported regarding the genitourinary system. EENT: No signs and/or symptoms were reported regarding the EENT system. Derm: Skin is intact. 19:11 Pain: Pain does not radiate. rv Vital Signs: 18:43 BP 138 / 81; Pulse 92; Resp 16; Temp 98.2; Pulse Ox 98% on R/A; la1 18:43 Weight 72.57 kg; rv 19:10 BP 128 / 84; Pulse 88; Resp 18 S; Pulse Ox 100% on R/A; rv ED Course: 18:25 Patient arrived in ED. ds1 18:33 [facility] snw 18:33 Herman Cortez MD is Attending Physician. snw 18:41 Isidro Bassett, RN is Primary Nurse. la1 18:42 Triage completed. la1 18:43 Arm band placed on right wrist. la1 19:11 Patient has correct armband on for positive identification. Bed in low position. Call rv light in reach. Side rails up X 1. Pulse ox on. NIBP on. 19:11 No provider procedures requiring assistance completed. Patient did not have IV access rv during this emergency room visit. Patient maintains SpO2 saturation greater than 95% on room air. Administered Medications: No medications were administered Outcome: 18:53 Discharge ordered by . snw 19:12 Discharged to home ambulatory. rv 19:12 Condition: good 19:12 Discharge instructions given to patient, Instructed on discharge instructions, follow up and referral plans. Demonstrated understanding of instructions, follow-up care. 19:12 Patient left the ED. rv Signatures: Kajal Villa FNP-C FNP-Csnw Janet Proctor ds1 Isidro Bassett RN RN la1 Mateo Aleman RN RN rv
--- NOTE | 2018-08-09 18:54 | EDPHYS ---
Physician Documentation [facility] Name: Ana Davis Age: 37 yrs Sex: Female : 1980 Arrival Date: 08/09/2018 Time: 18:25 Bed 27 Private MD: ED Physician Herman Cortez HPI: 08/10 01:21 This 37 yrs old Female presents to ER via Ambulatory with complaints of High snw Blood Pressure, Irregular Pulse. 01:21 The patient has elevated blood pressure and discovered this at a drugstore. Onset: The snw symptoms/episode began/occurred at an unknown time. Modifying factors: The symptoms are aggravated by panic attack. Associated signs and symptoms: Pertinent negatives: chest pain, dizziness, dyspnea, headache, nausea, vomiting. Severity of symptoms: At its worst the blood pressure was 140 mm Hg. The patient has experienced similar episodes in the past. The patient has been recently seen by a physician: with similar presenting complaints, multiple times. Historical: - Allergies: 08/09 18:43 Bactrim; la1 - PMHx: 18:43 None; la1 - Immunization history:: Adult Immunizations not up to date. - Social history:: Smoking status: Patient/guardian denies using tobacco. - Ebola Screening: : No symptoms or risks identified at this time. ROS: 08/10 01:20 Constitutional: Negative for fever, chills, and weight loss, Eyes: Negative for injury, snw pain, redness, and discharge, ENT: Negative for injury, pain, and discharge, Neck: Negative for injury, pain, and swelling, Cardiovascular: Negative for chest pain, palpitations, and edema, pt excessively concerned with blood pressure reading she obtained at a pharmacy. No chest pain, mild palpitations Respiratory: Negative for shortness of breath, cough, wheezing, and pleuritic chest pain, Abdomen/GI: Negative for abdominal pain, nausea, vomiting, diarrhea, and constipation, Back: Negative for injury and pain, : Negative for injury, bleeding, discharge, and swelling, MS/Extremity: Negative for injury and deformity, Skin: Negative for injury, rash, and discoloration, Neuro: Negative for headache, weakness, numbness, tingling, and seizure, Psych: Negative for depression, anxiety, suicide ideation, homicidal ideation, and hallucinations. Exam: 01:17 Head/Face: Normocephalic, atraumatic. Eyes: Pupils equal round and reactive to light, snw extra-ocular motions intact. Lids and lashes normal. Conjunctiva and sclera are non-icteric and not injected. Cornea within normal limits. Periorbital areas with no swelling, redness, or edema. ENT: Nares patent. No nasal discharge, no septal abnormalities noted. Tympanic membranes are normal and external auditory canals are clear. Oropharynx with no redness, swelling, or masses, exudates, or evidence of obstruction, uvula midline. Mucous membranes moist. Neck: Trachea midline, no thyromegaly or masses palpated, and no cervical lymphadenopathy. Supple, full range of motion without nuchal rigidity, or vertebral point tenderness. No Meningismus. Chest/axilla: Normal chest wall appearance and motion. Nontender with no deformity. No lesions are appreciated. Cardiovascular: Regular rate and rhythm with a normal S1 and S2. No gallops, murmurs, or rubs. Normal PMI, no JVD. No pulse deficits. Respiratory: Lungs have equal breath sounds bilaterally, clear to auscultation and percussion. No rales, rhonchi or wheezes noted. No increased work of breathing, no retractions or nasal flaring. Abdomen/GI: Soft, non-tender, with normal bowel sounds. No distension or tympany. No guarding or rebound. No evidence of tenderness throughout. Back: No spinal tenderness. No costovertebral tenderness. Full range of motion. Skin: Warm, dry with normal turgor. Normal color with no rashes, no lesions, and no evidence of cellulitis. MS/ Extremity: Pulses equal, no cyanosis. Neurovascular intact. Full, normal range of motion. Neuro: Awake and alert, GCS 15, oriented to person, place, time, and situation. Cranial nerves II-XII grossly intact. Motor strength 5/5 in all extremities. Sensory grossly intact. Cerebellar exam normal. Normal gait. 01:17 Constitutional: The patient appears alert, awake, anxious, restless. 01:17 Psych: Behavior/mood is paranoid. Affect is animated, Oriented to person, place, time, Judgement / Insight is impaired. pt can barely function with worry that something is wrong. Pt tearful stating that she is a single Mother and if anything happened to her, what would become of the child. . Vital Signs: 08/09 18:43 BP 138 / 81; Pulse 92; Resp 16; Temp 98.2; Pulse Ox 98% on R/A; la1 18:43 Weight 72.57 kg; rv 19:10 BP 128 / 84; Pulse 88; Resp 18 S; Pulse Ox 100% on R/A; rv MDM: 18:33 Patient medically screened. snw 08/10 01:18 Data reviewed: vital signs, nurses notes. Data interpreted: Pulse oximetry: on room air snw is 100 %. Interpretation: normal. Counseling: I had a detailed discussion with the patient and/or guardian regarding: the historical points, exam findings, and any diagnostic results supporting the discharge/admit diagnosis, the presence of at least one elevated blood pressure reading (>120/80) during this emergency department visit, the need for outpatient follow up, to return to the emergency department if symptoms worsen or persist or if there are any questions or concerns that arise at home. 01:19 ED course: pt has appt for physical on 08/13. She has had recent CT of abd and pelvis, snw colonoscopy, pelvic ultrasound... all without significant findings. Administered Medications: No medications were administered Disposition: 07:55 Co-signature as Attending Physician, Herman Cortez MD I agree with the assessment and [facility] plan of care. Disposition: 08/09/18 18:53 Discharged to Home. Impression: Anxiety disorder, unspecified. - Condition is Stable. - Discharge Instructions: Panic Attacks, Hypertension, Stress and Stress Management, Generalized Anxiety Disorder. - Medication Reconciliation Form, Thank You Letter, Antibiotic Education, Prescription Opioid Use form. - Follow up: Private Physician; When: 2 - 3 days; Reason: Recheck today's complaints, Continuance of care, Re-evaluation by your physician. Follow up: Emergency Department; When: As needed; Reason: Worsening of condition. Signatures: Herman Cortez MD MD cha Therrien, Shelly, CALL CENTER REPRESENTATIVE-C CALL CENTER REPRESENTATIVE-Csnw Isidro Bassett RN RN la1 Mateo Aleman RN RN rv Corrections: (The following items were deleted from the chart) 08/09 19:12 18:53 08/09/2018 18:53 Discharged to Home. Impression: Anxiety disorder, unspecified. rv Condition is Stable. Forms are Medication Reconciliation Form, Thank You Letter, Antibiotic Education, Prescription Opioid Use. Follow up: Private Physician; When: 2 - 3 days; Reason: Recheck today's complaints, Continuance of care, Re-evaluation by your physician. Follow up: Emergency Department; When: As needed; Reason: Worsening of condition. snw
== END 2018-08-09 19:12 | disposition home or self-care (01) ==
LOC: ER 18:22
DX: F41.9 Anxiety disorder, unspecified (principal); R03.0 Elevated blood-pressure reading, without diagnosis of hypertension
CPT/HCPCS: 99284

== ENCOUNTER 2018-09-01 01:45 | Emergency (ER) | payer OTHER ==
--- OUTSIDE RECORDS SUMMARY | 2018-09-01 01:47 | XMS REPORT ---
:1980 Author Organization [employer] Care Team Providers Name Role Phone Nelli Torres Provider Role Unavailable Allergies No Known Allergies Problems Problem Type Condition Code Onset Dates Condition Status Problem Anxiety F41.9 Active Problem Depression F32.9 Active Problem Palpitations R00.2 Active Problem Elevated BP without diagnosis of R03.0 Active hypertension Problem Right foot pain M79.671 Active Problem Ventral hernia without obstruction K43.9 Active or gangrene Medications No Known Medications Results No Known Results Summary Purpose [employer]Clinical[employer] Submission
--- OUTSIDE RECORDS SUMMARY | 2018-09-01 01:47 | XMS REPORT ---
:1980 Author Organization [employer] Care Team Providers Name Role Phone Nelli Torres Provider Role Unavailable Allergies, Adverse Reactions, Alerts Substance Reaction Event Type Latex Info Not Available Drug Allergy Banana (Diagnostic) Info Not Available Drug Allergy Bactrim Info Not Available Drug Allergy Problems Problem Type Condition Code Onset Dates Condition Status Assessment Ventral hernia without obstruction K43.9 Active or gangrene Assessment Palpitations R00.2 Active Assessment Elevated BP without diagnosis of R03.0 Active hypertension Assessment Follow-up exam Z09 Active Assessment Anxiety F41.9 Active Assessment Right foot pain M79.671 Active Problem Anxiety F41.9 Active Problem Depression F32.9 Active Problem Palpitations R00.2 Active Problem Elevated BP without diagnosis of R03.0 Active hypertension Problem Right foot pain M79.671 Active Problem Ventral hernia without obstruction K43.9 Active or gangrene Medications Medication Code Code Instructions Start End Status Dosage System Date Date Vitamin B ND 69088702954 - Orally Active as directed Complex Baby Aspirin NDC 0 Active not defined Fish Oil ND 13866092829 1000 MG Orally Active 1 capsule Once a day Smita ND 61923363414 500 MG Orally Active as directed Garlic NDC 0 - Orally Active as directed Probiotic ND 27214005161 - Orally Active as directed Multivitamin ND 51651685971 - Orally Active as directed Adult Results No Known Results Summary Purpose [employer]ClinicalWorks Submission
--- NOTE | 2018-09-01 02:27 | ER ---
Nurse's Notes [facility] Name: Ana Davis Age: 37 yrs Sex: Female : 1980 Arrival Date: 09/01/2018 Time: 01:47 Bed 16 Private MD: Diagnosis: Palpitations Presentation: 09/01 02:01 Presenting complaint: Patient states: heart palpitations since last . pt denies ak1 N/V/D, denies SOB. pt with increase stress due to ill family member. pt has appointment with Dr. Delacruz at 1300 09/01/18. Transition of care: patient was not received from another setting of care. Onset of symptoms is unknown. Risk Assessment: Do you want to hurt yourself or someone else? Patient reports no desire to harm self or others. Initial Sepsis Screen: Does the patient meet any 2 criteria? No. Patient's initial sepsis screen is negative. Does the patient have a suspected source of infection? No. Patient's initial sepsis screen is negative. Care prior to arrival: None. 02:01 Method Of Arrival: Ambulatory ak1 02:01 Acuity: CHIP 3 ak1 Triage Assessment: 02:05 General: Appears in no apparent distress. Behavior is cooperative, anxious. Pain: ak1 Denies pain. EENT: No signs and/or symptoms were reported regarding the EENT system. Neuro: No deficits noted. Cardiovascular: Reports palpitations. Respiratory: No deficits noted. GI: No signs and/or symptoms were reported involving the gastrointestinal system. : No signs and/or symptoms were reported regarding the genitourinary system. Derm: No signs and/or symptoms reported regarding the dermatologic system. Musculoskeletal: No signs and/or symptoms reported regarding the musculoskeletal system. 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 - Social history:: Smoking status: Patient/guardian denies using tobacco. - Ebola Screening: : No symptoms or risks identified at this time. Screenin:06 Abuse screen: Denies threats or abuse. Denies injuries from another. Nutritional ak1 screening: No deficits noted. Tuberculosis screening: No symptoms or risk factors identified. Fall Risk None identified. Assessment: 02:25 General: Appears in no apparent distress. comfortable, Behavior is calm, cooperative, jb4 appropriate for age. Pain: Denies pain. Neuro: Level of Consciousness is awake, alert, obeys commands, Oriented to person, place, time, situation. Cardiovascular: Patient's skin is warm and dry. Rhythm is sinus rhythm. Respiratory: Airway is patent Respiratory effort is even, unlabored, Respiratory pattern is regular, symmetrical. GI: No signs and/or symptoms were reported involving the gastrointestinal system. : No signs and/or symptoms were reported regarding the genitourinary system. EENT: No signs and/or symptoms were reported regarding the EENT system. Derm: Skin is intact, Skin is pink, warm \T\ dry. Musculoskeletal: Circulation, motion, and sensation intact. Vital Signs: 02:05 BP 138 / 76; Pulse 86; Resp 18; Temp 97.9(O); Pulse Ox 100% on R/A; Weight 58.97 kg ak1 (R); Height 5 ft. 8 in. (172.72 cm) (R); Pain 0/10; 02:05 Body Mass Index 19.77 (58.97 kg, 172.72 cm) ak1 ED Course: 01:47 Patient arrived in ED. ds1 01:57 Bebeto Youssef MD is Attending Physician. gs 01:57 Aristeo Villalobos, RN is Primary Nurse. jb4 02:03 Triage completed. ak1 02:05 Arm band placed on Patient placed in an exam room, on a stretcher, on pulse oximetry, ak1 Patient notified of wait time. 02:06 Patient has correct armband on for positive identification. Bed in low position. Call ak1 light in reach. Side rails up X 1. Adult w/ patient. Pulse ox on. NIBP on. 02:25 No provider procedures requiring assistance completed. Patient did not have IV access jb4 during this emergency room visit. Administered Medications: No medications were administered Outcome: 02:26 Discharge ordered by . gs 02:40 Discharged to home ambulatory. jb4 02:40 Condition: stable 02:40 Discharge instructions given to patient, family, Instructed on discharge instructions, follow up and referral plans. Demonstrated understanding of instructions, follow-up care. 02:41 Patient left the ED. jb4 Signatures: Janet Proctor ds1 Ava Ventura RN RN ak1 Aristeo Villalobos RN RN jb4 Bebeto Youssef MD MD gs
--- NOTE | 2018-09-01 02:27 | EDPHYS ---
Physician Documentation [facility] Name: Ana Davis Age: 37 yrs Sex: Female : 1980 Arrival Date: 09/01/2018 Time: 01:47 Bed 16 Private MD: ED Physician Bebeto Youssef HPI: 09/01 02:21 This 37 yrs old Female presents to ER via Ambulatory with complaints of gs Anxiety Palpitations. 02:21 The patient presents with a history of heart skipping beats. Context: The symptoms gs occur without known cause. Onset: The symptoms/episode began/occurred gradually. Duration: The patient or guardian reports multiple episodes, that are intermittent, that wax and wane, with no pattern, the episodes last approximately 5 second(s). Modifying factors: The symptoms are aggravated by nothing. The symptoms are alleviated by nothing. Associated signs and symptoms: Pertinent negatives: chest pain. Severity of symptoms: At their worst the symptoms were moderate in the emergency department the symptoms have resolved and did so earlier today. The patient has experienced similar episodes in the past, several times. 02:21 says having 5 episodes a day. 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 - Social history:: Smoking status: Patient/guardian denies using tobacco. - Ebola Screening: : No symptoms or risks identified at this time. ROS: 02:21 All other systems are negative. gs Exam: 02:21 Head/Face: Normocephalic, atraumatic. Eyes: Pupils equal round and reactive to light, gs extra-ocular motions intact. Lids and lashes normal. Conjunctiva and sclera are non-icteric and not injected. Cornea within normal limits. Periorbital areas with no swelling, redness, or edema. ENT: Nares patent. No nasal discharge, no septal abnormalities noted. Tympanic membranes are normal and external auditory canals are clear. Oropharynx with no redness, swelling, or masses, exudates, or evidence of obstruction, uvula midline. Mucous membranes moist. Neck: Trachea midline, no thyromegaly or masses palpated, and no cervical lymphadenopathy. Supple, full range of motion without nuchal rigidity, or vertebral point tenderness. No Meningismus. Chest/axilla: Normal chest wall appearance and motion. Nontender with no deformity. No lesions are appreciated. Cardiovascular: Regular rate and rhythm with a normal S1 and S2. No gallops, murmurs, or rubs. Normal PMI, no JVD. No pulse deficits. Respiratory: Lungs have equal breath sounds bilaterally, clear to auscultation and percussion. No rales, rhonchi or wheezes noted. No increased work of breathing, no retractions or nasal flaring. Abdomen/GI: Soft, non-tender, with normal bowel sounds. No distension or tympany. No guarding or rebound. No evidence of tenderness throughout. Back: No spinal tenderness. No costovertebral tenderness. Full range of motion. Skin: Warm, dry with normal turgor. Normal color with no rashes, no lesions, and no evidence of cellulitis. MS/ Extremity: Pulses equal, no cyanosis. Neurovascular intact. Full, normal range of motion. Neuro: Awake and alert, GCS 15, oriented to person, place, time, and situation. Cranial nerves II-XII grossly intact. Motor strength 5/5 in all extremities. Sensory grossly intact. Cerebellar exam normal. Normal gait. 02:21 Constitutional: The patient appears alert, awake. 02:21 ECG was reviewed by the Attending Physician. Vital Signs: 02:05 BP 138 / 76; Pulse 86; Resp 18; Temp 97.9(O); Pulse Ox 100% on R/A; Weight 58.97 kg ak1 (R); Height 5 ft. 8 in. (172.72 cm) (R); Pain 0/10; 02:05 Body Mass Index 19.77 (58.97 kg, 172.72 cm) ak1 MDM: 02:11 Patient medically screened. 02:21 Differential diagnosis: arrythmia, stress disorder. Data reviewed: vital signs, nurses gs notes. 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 Response to treatment: the patient's symptoms have resolved after treatment. 09/01 02:11 Order name: EKG - Nurse/Tech; Complete Time: 02:24 gs EC:21 Rate is 88 beats/min. Rhythm is regular. TN interval is normal. QRS interval is normal. gs T waves are Flattened. Clinical impression: Abnormal EKG without significant change. Interpreted by me. Administered Medications: No medications were administered Disposition: 09/01/18 02:26 Discharged to Home. Impression: Palpitations. - Condition is Stable. - Discharge Instructions: Holter Monitoring, Palpitations. - Medication Reconciliation Form, Thank You Letter, Antibiotic Education, Prescription Opioid Use form. - Follow up: Private Physician; When: Today; Reason: Re-evaluation by your physician. Signatures: Ava Ventura RN RN ak1 Aristeo Villalobos RN RN jb4 Bebeto Youssef MD MD Corrections: (The following items were deleted from the chart) 02:41 02:26 09/01/2018 02:26 Discharged to Home. Impression: Palpitations. Condition is jb4 Stable. Forms are Medication Reconciliation Form, Thank You Letter, Antibiotic Education, Prescription Opioid Use. Follow up: Private Physician; When: Today; Reason: Re-evaluation by your physician.
--- NOTE | 2018-09-01 15:51 | EKG ---
Test Date: 2018-09-01 Test Time: 02:17:02 Bias Binding Folder: BENJAMIN MEASUREMENT RESULTS: Intervals: Rate: 88 CT: 116 QRSD: 88 QT: 396 QTc: 479 [place]: P: 49 CT: 116 QRS: 86 T: 132 INTERPRETIVE STATEMENTS: Normal sinus rhythm Nonspecific ST and T wave abnormality Abnormal ECG Compared to ECG 08/07/2018 11:13:55 ST (T wave) deviation now present Right-axis deviation no longer present Electronically Signed On 09-01-18 15:50:19 CDT by Andres Mehta
== END 2018-09-01 02:41 | disposition home or self-care (01) ==
LOC: ER 01:45
DX: R00.2 Palpitations (principal); Z88.1 Allergy status to other antibiotic agents
CPT/HCPCS: 93005; 99284

== ENCOUNTER 2019-12-10 17:19 | Emergency (ER) | payer OTHER ==
--- OUTSIDE RECORDS SUMMARY | 2019-12-10 19:36 | XMS REPORT | Continuity of Care Document ---
:1980 Author Organization [facility] t Address [address] [place] [address] Care Team Providers Name Role Phone Froilan FOX Attending Clinician Problems Condition Condition Condition Status Onset Resolution Last Treating Co mments Source Name Details Category Date Date Treatment Clinician Date Ventral Ventral Problem Active [facility] without without Memoria obstructio obstructio l n or n or Outpati gangrene gangrene ent Clinics Palpitatio Palpitatio Diagnosis Active [facility] Elevated Elevated Problem Active [facility] BP without BP without Nga kes - diagnosis diagnosis Dereje adan of of l hypertensi hypertensi Ou tpati on on ent Clinics Anxiety Anxiety Problem [facility] Right foot Right foot Problem Active [facility] pain pain [facility] Depression Depression Problem [facility] High risk High risk Problem Active [facility] HPV HPV [facility] - infection infection Dereje adan l Outpati ent Clinics History of History of Problem Active [facility] perforated perforated Nga kes - ear drum ear drum [facility] Encounter Encounter Diagnosis Active [facility] for for [facility] - general general Memoria adult adult l medical medical Outpati examinatio examinatio en t n without n without Clin ics abnormal abnormal findings findings PTSD PTSD Problem Active [facility] (post-trau (post-trau Nga kes - matic matic Memoria stress stress l disorder) disorder) Outp ati ent Clinics H/O breast H/O breast Problem Active [facility] augmentati augmentati Nga kes - on on [facility] Allergies, Adverse Reactions, Alerts Allergy Allergy Status Severity Reaction(s) Onset Inactive Treating Comm ents Source Name Type Date Date Clinician Latex Adverse Active Info Not [facility] Reaction Available [facility] Banana Adverse Active Info Not [facility] (Diagnos Reaction Available Talha es - tic) [facility] Bactrim Adverse Active Info Not [facility] Reaction Available [facility] Medications Ordered Filled Start Stop Current Ordering Indication Dosage Frequency Signature Comments Components Source Medication Medication Date Date Medication? Clinician (SIG) Name Name BusPIRone BusPIRone Yes [place] [address] [facility] HCl HCl 3-27 Arsalan [facility] - 00:00: [facility] 00 l [facility] Baby Baby Yes [place] not [facility] Aspirin Aspirin Arsalan defined [facility] Fish Oil Fish Oil Yes [place] [address] [facility] Arsalan [facility] Smita Smita Yes [place] as [facility] Arsalan directed [facility] Garlic Garlic Yes [place] as [facility] Arsalan directed [facility] Vitamin B Vitamin B Yes [place] as [facility] Complex Complex Arsalan directed [facility] Multivitami Multivitami Yes [place] as [facility] n Adult n Adult Arsalan directed Luke [facility] - [facility] Probiotic Probiotic Yes [place] as [facility] Arsalan directed [facility] Procedures This patient has no known procedures. Encounters Start End Encounter Admission Attending Care Care Encounter Source Date/Time Date/Time Type Type Clinicians Facility Department ID 2019-11-22 2019-11-22 Telephone Froilan [facility] [id number] 00:00:00 00:00:00 Margot Virgen [id number] [place] [id number] Ron [id number] [address] 2019-11-11 2019-11-11 Christopher Mcgovern [facility] [id number] 00:00:00 00:00:00 Margot Virgen [id number] [place] [id number] Ron [id number] 2019-01-07 2019-01-07 [facility] [id number] [facility] 14:45:00 14:45:00 [facility] Out[facility] Clinics 2018-09-28 2018-09-28 [facility] [id number] [facility] 10:00:00 10:00:00 [facility] Clin[facility] 2018-09-09 2018-09-09 [facility] [id number] [facility] 10:15:00 10:15:00 [facility] Clin[facility] 2018-08-27 2018-08-27 [facility] [id number] [address] 16:49:00 16:49:00 [facility] Outpat[facility] ent Clin[facility] 2018-08-26 2018-08-26 [facility] [id number] [address] 10[facility]30:00 10:30:00 [facility] Results This patient has no known results.
--- OUTSIDE RECORDS SUMMARY | 2019-12-10 19:36 | XMS REPORT | Summary of Care ---
:1980 Author Organization [facility] Address [address] [place] [address] Care Team Providers Name Role Phone Pcp, Patient Does Not Have A Primary Care Provider +[id number] 0-0000 Reason for Visit Reason Comments Results Encounter Details Date Type Department Care Team Description 11/22/2019 Telephone [facility] Margot Mcgovern MD Results Healthcare- [address] [address] [address] [place] [address] [facility] [phone] Allergies Active Allergy Reactions Severity Noted Date Comments Sulfamethoxazole Swelling Medium 09/07/2019 documented as of this encounter (statuses as of 11/23/2019) Medications Medication Sig Dispensed Refills Start Date End Date Status metroNIDAZOLE (FLAGYL) Take 1 tablet by 14 tablet 0 09/12/2019 Active 500 mg mouth 2 (two) tabletIndications: times daily with Bacterial vaginosis meals. documented as of this encounter (statuses as of 11/23/2019) Active Problems No known active problemsdocumented as of this encounter (statuses as of 11/23/2019) Social History Tobacco Use Types Packs/Day Years Used Date Never Smoker Smokeless Tobacco: Never Used Alcohol Use Drinks/Week oz/Week Comments Yes occasionally Sex Assigned at Date Recorded Not on file Job Start Date Occupation Industry Not on file Not on file Not on file Travel History Travel Start Travel End No recent travel history available. documented as of this encounter Last Filed Vital Signs Not on filedocumented in this encounter Plan of Treatment Health Maintenance Due Date Last Done Comments DTaP,Tdap,and Td Vaccines (1 - 1989 Tdap) Depression Screening 1990 Breast Cancer Screening 2018 (MAMMOGRAM) INFLUENZA VACCINE (Season Ended) 2020 PAP SMEAR 09/08/2022 09/09/2019 PNEUMOCOCCAL 0-64 YEARS COMBINED Aged Out No longer eligible based on SERIES patient's age to complete this topic documented as of this encounter Results Not on filedocumented in this encounter Insurance Payer Benefit Plan / Subscriber ID Effective Phone Address T e Group Dates [facility] xxxxxxxxx 2018-Prese [address] Medic aid [facility] [place] - [place] [id number] MANAGED MEDICAID [place], [place] [phone] documented as of this encounter
--- NOTE | 2019-12-10 21:12 | ER ---
Nurse's Notes [facility] Name: Ana Davis Age: 39 yrs Sex: Female : 1980 Arrival Date: 12/10/2019 Time: 17:22 Bed 12 Private MD: Diagnosis: Sore throat Presentation: 12/09 17:31 Chief complaint: Patient states: Sore throat this morning. Sneezing more than usual ca1 yesterday. Denies fever. Denies cough. Coronavirus screen: Proceed with normal triage. Patient denies a cough. Patient denies shortness of breath or difficulty breathing. Patient denies measured and/or subjective temperature greater than 100.4F prior to today's visit. Patient denies travel on a cruise ship or to a country the [facility] currently lists as an affected area. Patient denies contact with known and/or suspected case of COVID-19. Ebola Screen: Patient negative for fever greater than or equal to 101.5 degrees Fahrenheit, and additional compatible Ebola Virus Disease symptoms Patient denies exposure to infectious person. Patient denies travel to an Ebola-affected area in the 21 days before illness onset. No symptoms or risks identified at this time. Initial Sepsis Screen: Does the patient meet any 2 criteria? No. Patient's initial sepsis screen is negative. Does the patient have a suspected source of infection? No. Patient's initial sepsis screen is negative. Risk Assessment: Do you want to hurt yourself or someone else? Patient reports no desire to harm self or others. Onset of symptoms was December 10, 2019. 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 - Social history:: Smoking status: Patient denies any tobacco usage or history of. Screenin:20 Abuse screen: Denies threats or abuse. Denies injuries from another. Nutritional sg screening: No deficits noted. Tuberculosis screening: No symptoms or risk factors identified. Never had TB. Fall Risk None identified. Assessment: 20:10 Reassessment: pt requesting a COVID 19 swab per , but would like her test sg results back CHUCK, pt states she is unsure if she wants to have her testing done in the ED or if she would rather have her testing done at a different facility, awaiting pt decision at this time. 20:10 Pain: Denies pain. Cardiovascular: Patient's skin is warm and dry. Chest pain is sg denied. Respiratory: Airway is patent Respiratory effort is even, unlabored, Respiratory pattern is regular, symmetrical, Breath sounds are clear. EENT: Throat is pink with gag reflex present, Reports pain when swallowing. Derm: Skin is pink, warm \T\ dry. Musculoskeletal: Circulation, motion, and sensation intact. Range of motion: intact in all extremities. 20:27 Reassessment: Patient appears in no apparent distress at this time. pt given sg information on testing options for COVID 19, awaiting confirmation on what the patient would like to do, notified will check back with pt for answer. 21:10 Reassessment: a COVID 19 swab has been obtained and sent to the lab. sg Vital Signs: 17:31 BP 123 / 63; Pulse 81; Resp 18 S; Temp 97.7(TE); Pulse Ox 100% on R/A; Weight 58.97 kg ca1 (R); Height 5 ft. 8 in. (172.72 cm) (R); 21:15 BP 108 / 77; Pulse 80; Resp 18; Temp 97.7; Pulse Ox 99% on R/A; sg 17:31 Body Mass Index 19.77 (58.97 kg, 172.72 cm) ca1 ED Course: 17:22 Patient arrived in ED. ag5 17:33 Triage completed. ca1 17:34 Arm band placed on right wrist. ca1 17:46 Strep Sent. ca1 19:28 Usman Alejandro MD is Attending Physician. mh7 19:57 Jasbir Landers, IVY is Primary Nurse. sg 20:10 Patient has correct armband on for positive identification. Bed in low position. Call sg light in reach. Pulse ox on. NIBP on. Warm blanket given. Head of bed elevated. 20:29 Throat Culture Sent. sg 21:20 No provider procedures requiring assistance completed. Patient did not have IV access sg during this emergency room visit. 12/10 09:19 Health Dept notified/ PUI # [phone] [phone]/ [place] in lab notified. eb Administered Medications: No medications were administered Outcome: 12/09 21:11 Discharge ordered by . berkley 21:20 Discharged to home ambulatory, with family. sg 21:20 Condition: good 21:20 Discharge instructions given to patient, Instructed on discharge instructions, follow up and referral plans. safety practices, Demonstrated understanding of instructions, follow-up care. 21:26 Patient left the ED. sg Addendum: 12/14/2019 09:47 Addendum: Other pt notified of negative COVID-19 swab results. d m5 Signatures: Geovanna Baeza, RN RN dm5 Jasbir Landers RN RN sg Botello, Elizabeth eb Acob, Cheryl RN RN Marybel Bernard [facility] Usman Alejandro MD MD [facility]
--- NOTE | 2019-12-10 21:12 | EDPHYS ---
Physician Documentation [facility] Name: Ana Davis Age: 39 yrs Sex: Female : 1980 Arrival Date: 12/10/2019 Time: 17:22 Bed 12 Private MD: ED Physician Usman Alejandro HPI: 12/09 20:12 This 39 yrs old Female presents to ER via Ambulatory with complaints of Sore mh7 Throat. 20:12 The patient presents with sore throat. The patient describes throat pain as mh7 intermittent, scratchy. Onset: The symptoms/episode began/occurred today. Severity of symptoms: At their worst the symptoms were mild, earlier today, in the emergency department the symptoms have resolved, and did so earlier today. Modifying factors: The symptoms are alleviated by nothing, the symptoms are aggravated by swallowing. Associated signs and symptoms: Pertinent negatives chest pain, chills, cough, diarrhea, dysphagia, earache, fever, flu-like symptoms, headache, nausea, rhinorrhea, shortness of breath, vomiting. 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 - Social history:: Smoking status: Patient denies any tobacco usage or history of. ROS: 20:12 Constitutional: Negative for fever, chills, and weight loss, Eyes: Negative for injury, mh7 pain, redness, and discharge, Neck: Negative for injury, pain, and swelling, Cardiovascular: Negative for chest pain, palpitations, and edema, Respiratory: Negative for shortness of breath, cough, wheezing, and pleuritic chest pain, Abdomen/GI: Negative for abdominal pain, nausea, vomiting, diarrhea, and constipation, Back: Negative for injury and pain, : Negative for injury, bleeding, discharge, and swelling, MS/Extremity: Negative for injury and deformity, Skin: Negative for injury, rash, and discoloration, Neuro: Negative for headache, weakness, numbness, tingling, and seizure, Psych: Negative for depression, anxiety, suicide ideation, homicidal ideation, and hallucinations, Allergy/Immunology: Negative for hives, rash, and allergies, Endocrine: Negative for neck swelling, polydipsia, polyuria, polyphagia, and marked weight changes, Hematologic/Lymphatic: Negative for swollen nodes, abnormal bleeding, and unusual bruising. Exam: 20:12 Constitutional: This is a well developed, well nourished patient who is awake, alert, mh7 and in no acute distress. Head/Face: Normocephalic, atraumatic. Eyes: Pupils equal round and reactive to light, extra-ocular motions intact. Lids and lashes normal. Conjunctiva and sclera are non-icteric and not injected. Cornea within normal limits. Periorbital areas with no swelling, redness, or edema. Neck: Trachea midline, no thyromegaly or masses palpated, and no cervical lymphadenopathy. Supple, full range of motion without nuchal rigidity, or vertebral point tenderness. No Meningismus. Chest/axilla: Normal chest wall appearance and motion. Nontender with no deformity. No lesions are appreciated. Cardiovascular: Regular rate and rhythm with a normal S1 and S2. No gallops, murmurs, or rubs. Normal PMI, no JVD. No pulse deficits. Respiratory: Lungs have equal breath sounds bilaterally, clear to auscultation and percussion. No rales, rhonchi or wheezes noted. No increased work of breathing, no retractions or nasal flaring. Abdomen/GI: Soft, non-tender, with normal bowel sounds. No distension or tympany. No guarding or rebound. No evidence of tenderness throughout. Back: No spinal tenderness. No costovertebral tenderness. Full range of motion. Skin: Warm, dry with normal turgor. Normal color with no rashes, no lesions, and no evidence of cellulitis. MS/ Extremity: Pulses equal, no cyanosis. Neurovascular intact. Full, normal range of motion. Neuro: Awake and alert, GCS 15, oriented to person, place, time, and situation. Cranial nerves II-XII grossly intact. Motor strength 5/5 in all extremities. Sensory grossly intact. Cerebellar exam normal. Normal gait. Psych: Awake, alert, with orientation to person, place and time. Behavior, mood, and affect are within normal limits. 21:08 ENT: Nose: is normal, Mouth: is normal, Posterior pharynx: is normal, Dental exam: mh7 normal, Voice: is normal. Vital Signs: 17:31 BP 123 / 63; Pulse 81; Resp 18 S; Temp 97.7(TE); Pulse Ox 100% on R/A; Weight 58.97 kg ca1 (R); Height 5 ft. 8 in. (172.72 cm) (R); 21:15 BP 108 / 77; Pulse 80; Resp 18; Temp 97.7; Pulse Ox 99% on R/A; sg 17:31 Body Mass Index 19.77 (58.97 kg, 172.72 cm) ca1 MDM: 19:54 Patient medically screened. mh7 21:08 Differential diagnosis: Allergic rhinitis, epiglottitis, laryngitis, pharyngitis, mh7 uvulitis, viral syndrome. Data reviewed: vital signs, nurses notes, old medical records, lab test result(s). Data interpreted: Pulse oximetry: on room air is 100 %. Interpretation: normal. Counseling: I had a detailed discussion with the patient and/or guardian regarding: the historical points, exam findings, and any diagnostic results supporting the discharge/admit diagnosis, lab results, the need for outpatient follow up, to return to the emergency department if symptoms worsen or persist or if there are any questions or concerns that arise at home. 12/10 06:25 ED course: Well appearing, NAD, VSS, no focal neurological deficits. No pharyngeal mh7 swelling. Tolerating oral intake without difficulty. She states that she came to ED tonight to get tested for COVID 19 and adamantly requests test to be done here.. 12/09 17:35 Order name: Strep ca1 12/09 17:35 Order name: Group A Streptococcus Rapid Sc; Complete Time: 19:29 EDIL 12/09 18:44 Order name: Throat Culture [facility] 12/09 20:55 Order name: COVID-19 mh7 Administered Medications: No medications were administered Disposition: 12/10/19 21:11 Discharged to Home. Impression: Sore throat. - Condition is Stable. - Discharge Instructions: Sore Throat, [id number]. - Medication Reconciliation Form, Thank You Letter, Antibiotic Education, Prescription Opioid Use form. - Follow up: Private Physician; When: 2 - 3 days; Reason: Worsening of condition, Recheck today's complaints, Re-evaluation by your physician. - Problem is new. - Symptoms have improved. Signatures: Dispatcher [employer] EDMS Jasbir Landers RN RN sg Acchristianne, IVY Douglas RN [facility] Usman Alejandro MD MD mh7 Corrections: (The following items were deleted from the chart) 12/09 21:13 21:11 12/10/2019 21:11 Discharged to Home. Impression: Pharyngitis. Condition is mh7 Stable. Forms are Medication Reconciliation Form, Thank You Letter, Antibiotic Education, Prescription Opioid Use. Follow up: Private Physician; When: 2 - 3 days; Reason: Worsening of condition, Recheck today's complaints, Re-evaluation by your physician. Problem is new. Symptoms have improved. 7 21:13 12/10/2019 21:11 Discharged to Home. Impression: Sore throat. Condition is sg Stable. Discharge Instructions: Sore Throat, [id number]. Forms are Medication Reconciliation Form, Thank You Letter, Antibiotic Education, Prescription Opioid Use. Follow up: Private Physician; When: 2 - 3 days; Reason: Worsening of condition, Recheck today's complaints, Re-evaluation by your physician. Problem is new. Symptoms have improved. mh7
[2019-12-10 21:46] VITALS: BP 123/63; TEMP 97.7; O2SAT 100
== END 2019-12-10 21:26 | disposition home or self-care (01) ==
LOC: ER 17:19
DX: J02.9 Acute pharyngitis, unspecified (principal); Z20.828 Contact with and (suspected) exposure to other viral communicable diseases; Z88.1 Allergy status to other antibiotic agents; Z91.040 Latex allergy status
CPT/HCPCS: 87070; 87081; 99283; U0001

== ENCOUNTER 2020-09-20 18:38 | Emergency (ER) | payer OTHER ==
--- OUTSIDE RECORDS SUMMARY | 2020-09-20 18:41 | XMS REPORT | Continuity of Care Document ---
:1980 Author Organization [facility] t Address [address] [place] [address] Care Team Providers Name Role Phone Quin PRECIADO Attending Clinician Problems Condition Condition Condition Status [...] [facility] History of History of Problem Active C [facility] St perforated perforated Nga kes - ear drum ear drum [facility] Encounter Encounter Diagnosis Active [...] Nga kes - on on [facility] Allergies, Adverse Reactions, Alerts Allergy Allergy Status Severity Reaction(s) Onset Inactive Treating Comm ents Source Name Type Date Date Clinician Latex Adverse Active Info Not [facility] Reaction Available [facility] Banana Adverse Active Info Not [facility] (Diagnos Reaction Available [facility] Bactrim Adverse Active Info Not [facility] Reaction Available [facility] Medications Ordered Filled Start Stop Current Ordering Indication Dosage Frequency Signature Comments Components Source Medication Medication Date Date Medication? Clinician (SIG) Name Name BusPIRone BusPIRone Yes [place] [address] [facility] HCl HCl 3-27 Arsalan [facility] Baby Baby Yes [place] not [facility] Aspirin Aspirin Arsalan defined [facility] Fish Oil Fish Oil Yes Franklin [address] [facility] Arsalan [facility] Smita Smita Yes [facility] as [facility] Arsalan directed [facility] Garlic Garlic Yes [facility] as [facility] Arsalan directed [facility] Vitamin B Vitamin B Yes [place] as [facility] Complex Complex Arsalan directed [facility] Multivitami Multivitami Yes [facility] as [facility] n Adult n Adult Arsalan directed [facility] Probiotic Probiotic Yes [facility] as [facility] Arsalan directed [facility] Procedures This patient has no known procedures. Encounters Start End Encounter Admission Attending Care Care Encounter Source Date/Time Date/Time Type Type Clinicians Facility Department ID 2020-09-20 2020-09-20 Office DOYLE Tsai [id number] 11:13:47 12:12:32 Visit Samantha Virgen [id number] [place] [id number] Ron [id number] [address] 2019-01-07 2019-01-07 [facility] [id number] [facility] 14:45:00 14:45:00 t [facility] 2018-09-28 2018-09-28 [facility] [id number] [facility] 10:00:00 10:00:00 [facility] Clin[facility] 2018-09-09 2018-09-09 [facility] [id number] [facility] 10:15:00 10:15:00 t [facility] Outpati ent Clinics 2018-08-27 2018-08-27 [facility] [id number] [facility] [address] 16:49:00 16:49:00 [facility] 2018-08-26 2018-08-26 [facility] [id number] [facility] 10:30:00 10:30:00 [facility] Results This patient has no known results.
--- NOTE | 2020-09-20 18:59 | ER ---
Nurse's Notes [facility] Name: Ana Davis Age: 40 yrs Sex: Female : 1980 Arrival Date: 09/20/2020 Time: 18:40 Bed 6 Private MD: Diagnosis: Conjunctivitis Presentation: 09/20 18:45 Chief complaint: Patient states: R eye been tearing x 1 month, thought it was just ca1 allergies. Sometime today, the drainage is thicker and yellow. Coronavirus screen: Client denies travel out of the [place] in the last 14 days. At this time, the client does not indicate any symptoms associated with coronavirus-19. Ebola Screen: Patient negative for fever greater than or equal to 101.5 degrees Fahrenheit, and additional compatible Ebola Virus Disease symptoms Patient denies exposure to infectious person. Patient denies travel to an Ebola-affected area in the 21 days before illness onset. No symptoms or risks identified at this time. Initial Sepsis Screen: Does the patient meet any 2 criteria? No. Patient's initial sepsis screen is negative. Does the patient have a suspected source of infection? No. Patient's initial sepsis screen is negative. Risk Assessment: Do you want to hurt yourself or someone else? Patient reports no desire to harm self or others. Onset of symptoms was September 20, 2020. 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 - Social history:: Smoking status: Patient denies any tobacco usage or history of. Screenin:18 Abuse screen: Denies threats or abuse. Denies injuries from another. Nutritional rv screening: No deficits noted. Tuberculosis screening: No symptoms or risk factors identified. Fall Risk None identified. Assessment: 19:18 General: Appears comfortable, Behavior is calm, cooperative. Pain: Denies pain. Neuro: rv Level of Consciousness is awake, alert, obeys commands, Oriented to person, place, time, situation. EENT: Eyes redness on right eye. Vital Signs: 18:45 BP 114 / 78; Pulse 65; Resp 18 S; Temp 97.8(TE); Pulse Ox 99% on R/A; Weight 62.14 kg ca1 (R); Height 5 ft. 8 in. (172.72 cm) (R); 18:45 Body Mass Index 20.83 (62.14 kg, 172.72 cm) ca1 ED Course: 18:40 Patient arrived in ED. am2 18:46 Triage completed. ca1 18:47 Arm band placed on right wrist. ca1 18:49 Gilmer Tsang PA is PHCP. jr8 18:49 Ty Phillip MD is Attending Physician. jr8 19:13 Kaitlin Mcneill, IVY is Primary Nurse. ss 19:19 Patient has correct armband on for positive identification. rv 19:19 No provider procedures requiring assistance completed. Patient did not have IV access rv during this emergency room visit. Administered Medications: No medications were administered Outcome: 18:59 Discharge ordered by MD. jr8 19:19 Discharged to home ambulatory. rv 19:19 Condition: good 19:19 Discharge instructions given to patient, Instructed on discharge instructions, follow up and referral plans. medication usage, Demonstrated understanding of instructions, follow-up care, medications, Prescriptions given X 1. 19:19 Patient left the ED. rv Signatures: Kaitlin Mcneill, RN RN Gilmer Tsang PA PA jr8 Sabina Bass am2 Mateo Aleman RN RN rv Stella Machado RN RN [facility]
--- NOTE | 2020-09-20 18:59 | EDPHYS ---
Physician Documentation [facility] Name: Ana Davis Age: 40 yrs Sex: Female : 1980 Arrival Date: 09/20/2020 Time: 18:40 Bed 6 Private MD: ED Physician Ty Phillip HPI: 09/20 18:59 This 40 yrs old Female presents to ER via Ambulatory with complaints of jr8 Drainage From Eye. 18:59 Onset: The symptoms/episode began/occurred gradually. Duration: the symptoms are jr8 continuous. Aggravated by nothing. Alleviated by nothing. Associated signs and symptoms: Pertinent positives: None. Severity of symptoms: At their worst the symptoms were mild in the emergency department the symptoms are unchanged. The patient has not experienced similar symptoms in the past. The patient has not recently seen a physician. Patient stated that she thought she had allergies and was having itchy watery right eye. Now having discharge . 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 - Social history:: Smoking status: Patient denies any tobacco usage or history of. ROS: 18:59 ENT: Negative for injury, pain, and discharge, Neck: Negative for injury, pain, and jr8 swelling, Cardiovascular: Negative for chest pain, palpitations, and edema, Respiratory: Negative for shortness of breath, cough, wheezing, and pleuritic chest pain, Abdomen/GI: Negative for abdominal pain, nausea, vomiting, diarrhea, and constipation, Back: Negative for injury and pain, MS/Extremity: Negative for injury and deformity, Skin: Negative for injury, rash, and discoloration, Neuro: Negative for headache, weakness, numbness, tingling, and seizure. 18:59 Eyes: Positive for itching, tearing, of the right eye. Exam: 18:59 Head/Face: Normocephalic, atraumatic. ENT: Nares patent. No nasal discharge, no jr8 septal abnormalities noted. Tympanic membranes are normal and external auditory canals are clear. Oropharynx with no redness, swelling, or masses, exudates, or evidence of obstruction, uvula midline. Mucous membranes moist. Neck: Trachea midline, no thyromegaly or masses palpated, and no cervical lymphadenopathy. Supple, full range of motion without nuchal rigidity, or vertebral point tenderness. No Meningismus. Cardiovascular: Regular rate and rhythm with a normal S1 and S2. No gallops, murmurs, or rubs. Normal PMI, no JVD. No pulse deficits. Respiratory: Lungs have equal breath sounds bilaterally, clear to auscultation and percussion. No rales, rhonchi or wheezes noted. No increased work of breathing, no retractions or nasal flaring. Skin: Warm, dry with normal turgor. Normal color with no rashes, no lesions, and no evidence of cellulitis. Neuro: Awake and alert, GCS 15, oriented to person, place, time, and situation. Cranial nerves II-XII grossly intact. Motor strength 5/5 in all extremities. Sensory grossly intact. Cerebellar exam normal. Normal gait. 18:59 Eyes: Periorbital structures: appear normal, Pupils: equal, round, and reactive to light and accomodation, Extraocular movements: intact throughout, Conjunctiva: injected, in the right eye, tearing noted, in right eye, Corneas: are normal, Sclera: no appreciated abnormality, Lids and lashes: appear normal. Vital Signs: 18:45 BP 114 / 78; Pulse 65; Resp 18 S; Temp 97.8(TE); Pulse Ox 99% on R/A; Weight 62.14 kg ca1 (R); Height 5 ft. 8 in. (172.72 cm) (R); 18:45 Body Mass Index 20.83 (62.14 kg, 172.72 cm) ca1 MDM: 18:49 Patient medically screened. jr8 18:58 Data reviewed: vital signs, nurses notes, and as a result, I will discharge patient. jr8 Data interpreted: Pulse oximetry: on room air is 99 %. Interpretation: normal. Counseling: I had a detailed discussion with the patient and/or guardian regarding: the historical points, exam findings, and any diagnostic results supporting the discharge/admit diagnosis, the need for outpatient follow up, a family practitioner, to return to the emergency department if symptoms worsen or persist or if there are any questions or concerns that arise at home. Administered Medications: No medications were administered Disposition: 09/20/20 18:59 Discharged to Home. Impression: Conjunctivitis. - Condition is Stable. - Discharge Instructions: Allergic Conjunctivitis, Adult, Viral Conjunctivitis. - Prescriptions for Gentamicin 0.3 % Ophthalmic Drops - instill 2 drops by OPHTHALMIC route every 4 hours for 7 days; 1 bottle. - Medication Reconciliation Form, Thank You Letter, Antibiotic Education, Prescription Opioid Use form. - Follow up: Private Physician; When: 1 week; Reason: Recheck today's complaints, Continuance of care, Re-evaluation by your physician. - Problem is new. - Symptoms have improved. Addendum: 09/23/2020 07:07 Co-signature as Attending Physician, Ty Phillip MD. r n Signatures: Ty Phillip MD MD rn Roszak, Josh, PA PA jr8 Mateo Aleman RN RN Stella Bartholomew RN RN ca1 Corrections: (The following items were deleted from the chart) 09/20 19:19 18:59 09/20/2020 18:59 Discharged to Home. Impression: Conjunctivitis. Condition is rv Stable. Forms are Medication Reconciliation Form, Thank You Letter, Antibiotic Education, Prescription Opioid Use. Follow up: Private Physician; When: 1 week; Reason: Recheck today's complaints, Continuance of care, Re-evaluation by your physician. Problem is new. Symptoms have improved. jr8
== END 2020-09-20 19:19 | disposition home or self-care (01) ==
LOC: ER 18:38
DX: H10.9 Unspecified conjunctivitis (principal); Z88.1 Allergy status to other antibiotic agents; Z91.040 Latex allergy status; Z91.048 Other nonmedicinal substance allergy status; Z98.82 Breast implant status
CPT/HCPCS: 99282

== ENCOUNTER 2021-12-21 15:13 | Emergency (ER) | payer OTHER ==
[2021-12-21 15:28] LABS: Urine Blood 2+ (Negative); Urine Glucose Negative (Negative); Urine Protein Negative (Negative)
[2021-12-21 16:32] LABS: Hematocrit 40.5 % (36.0-45.0); Lymphocytes % 12.6 % (15.3-44.8); MCV 92.3 fL (80-100); MPV 7.6 fL (7.6-11.3); RBC Red Blood Cell Count 4.39 M/uL (3.86-4.86)
[2021-12-21 16:56] LABS: Potassium 4.1 mmol/L (3.5-5.1)
--- NOTE | 2021-12-21 17:41 | RAD REPORT ---
EXAM DESCRIPTION: US - Transvaginal OB - 12/21/2021 5:26 pm CLINICAL HISTORY: with vaginal bleeding COMPARISON: None. FINDINGS: The uterus measures 10 x 6 x 7 centimeters. It appears there are 2 sacs within the endome trium. One measures 1.2 centimeters. It contains a pole with a crown-rump length 6 millimeters. Cardiac activity 86 beats per minute. A second sac measures 9 millimeters. A pole is not seen. Neither ovary visualized secondary to overlying bowel gas The right and left adnexa unremarkable No significant free fluid IMPRESSION: There appears to be a twin Estimated gestational age of twin A 6 weeks 4 days ANAND August 12, 2022. Cardiac activity diminished 86 beats per minute. pole not visualized within the smaller second gestational sac. This can be monitored on a subse quent examination. It is recommended that the patient have a followup endovaginal sonogram in 1 week for re-evaluation
--- NOTE | 2021-12-21 19:06 | EDPHYS ---
Physician Documentation [facility] Name: Ana Davis Age: 41 yrs Sex: Female : 1980 Arrival Date: 12/21/2021 Time: 15:16 Bed 19 Private MD: ED Physician Hilton Trevino HPI: 12/21 15:18 This 41 yrs old Female presents to ER via Ambulatory with complaints of Vaginal pm1 Bleeding, + Preg <12wks. 15:18 The patient presents to the emergency department with vaginal bleeding, that is light, pm1 described as spotting. The estimated gestational age is 6 weeks. course: care: private OB physician, the patient's last check was December 20, 2021. Previous pregnancies: in previous pregnancies patient has had no complications. Associated signs and symptoms: Pertinent negatives: abdominal pain, dysuria, fever. The patient has not experienced similar symptoms in the past. 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 - Social history:: Smoking status: Patient denies any tobacco usage or history of. ROS: 15:18 Constitutional: Negative for fever, chills, and weight loss, Cardiovascular: Negative pm1 for chest pain, palpitations, and edema, Respiratory: Negative for shortness of breath, cough, wheezing, and pleuritic chest pain, Abdomen/GI: Negative for abdominal pain, nausea, vomiting, diarrhea, and constipation. 15:18 MS/Extremity: Negative for injury and deformity, Skin: Negative for injury, rash, and discoloration. 15:18 Neuro: Negative for headache, weakness, numbness, tingling, and seizure. 15:18 : Positive for vaginal bleeding, Negative for urinary symptoms. 15:18 All other systems are negative. Exam: 15:18 Constitutional: This is a well developed, well nourished patient who is awake, alert, pm1 and in no acute distress. Head/Face: Normocephalic, atraumatic. 15:18 Back: No spinal tenderness. No costovertebral tenderness. Full range of motion. Skin: Warm, dry with normal turgor. Normal color with no rashes, no lesions, and no evidence of cellulitis. MS/ Extremity: Pulses equal, no cyanosis. Neurovascular intact. Full, normal range of motion. 15:18 Cardiovascular: Exam negative for acute changes, Rate: normal, Rhythm: regular, Pulses: no pulse deficits are appreciated. 15:18 Respiratory: Exam negative for acute changes, respiratory distress, shortness of breath. 15:18 Abdomen/GI: Inspection: abdomen appears normal, Palpation: abdomen is soft and non-tender, in all quadrants. 15:18 Neuro: Exam negative for acute changes, Orientation: is normal, Mentation: is normal, Motor: is normal, moves all fours. Vital Signs: 15:41 BP 133 / 72; Pulse 84; Resp 17; Temp 98.4; Pulse Ox 100% ; Weight 61.23 kg; Height 5 jl7 ft. 8 in. (172.72 cm); Pain 0/10; 18:54 BP 116 / 66; Pulse 66; Resp 18; Pulse Ox 100% on R/A; jd3 19:21 BP 127 / 72; Pulse 65; Resp 16; Pulse Ox 100% on R/A; jd3 15:41 Body Mass Index 20.53 (61.23 kg, 172.72 cm) jl7 MDM: 15:17 Patient medically screened. pm1 17:06 Data reviewed: vital signs. Data interpreted: Pulse oximetry: on room air is 100 %. pm1 Interpretation: normal. 18:22 Counseling: I had a detailed discussion with the patient and/or guardian regarding: the pm1 historical points, exam findings, and any diagnostic results supporting the discharge/admit diagnosis, lab results, radiology results, the need for outpatient follow up, an OB/Gyne specialist, to return to the emergency department if symptoms worsen or persist or if there are any questions or concerns that arise at home. 12/21 15:18 Order name: Abo/rh Typing pm1 12/21 15:18 Order name: Basic Metabolic Panel; Complete Time: 17:15 pm1 12/21 15:18 Order name: CBC with Diff; Complete Time: 16:46 pm1 12/21 15:18 Order name: Quantitative Hcg; Complete Time: 17:15 pm1 12/21 15:29 Order name: Urine Dipstick-Ancillary; Complete Time: 15:29 EDSC 12/21 15:36 Order name: Urine --Ancillary (enter results); Complete Time: 16:58 em1 12/21 15:30 Order name: US Transvaginal Ob; Complete Time: 18:08 pm1 12/21 18:04 Order name: Rh Typing EDSC 12/21 18:04 Order name: Antibody Screen EDSC 12/21 18:04 Order name: Fetalscreen [facility] 12/21 18:04 Order name: Cord Rh type EDSC 12/21 18:04 Order name: Rhogam [facility] 12/21 15:18 Order name: Labs collected and sent; Complete Time: 16:27 pm1 12/21 15:18 Order name: NPO; Complete Time: 16:27 pm1 12/21 15:18 Order name: Urine Dipstick-Ancillary (obtain specimen); Complete Time: 15:27 pm1 12/21 15:18 Order name: Urine Test (obtain specimen); Complete Time: 15:27 pm1 Administered Medications: 18:53 Drug: RhoGAM (Human) 300 mcg Route: IM; Site: right deltoid; jd3 19:22 Follow up: Response: No adverse reaction jd3 Disposition: 18:54 Co-signature as Attending Physician, Hilton FRANCISCO was immediately available on-site ms3 in the Emergency Department for consultation in the care of the patient.. Disposition Summary: 12/21/21 19:06 Discharge Ordered Location: Home pm1 Problem: new pm1 Symptoms: have improved pm1 Condition: Stable pm1 Diagnosis - Threatened pm1 Followup: pm1 - With: Emergency Department - When: As needed - Reason: Worsening of condition Followup: pm1 - With: Private Physician - When: 2 - 3 days - Reason: Recheck today's complaints, Continuance of care, Re-evaluation by your physician Discharge Instructions: - Discharge Summary Sheet pm1 - Threatened Miscarriage pm1 - Vaginal Bleeding During , First Trimester pm1 - Activity Restriction During pm1 Forms: - Medication Reconciliation Form pm1 - Thank You Letter pm1 - Antibiotic Education pm1 - Prescription Opioid Use pm1 Signatures: Dispatcher [employer] EDWayne Stevenson, VIET NANOTECHNOLOGY ENGINEERING TECHNOLOGIST pm1 Gal Dawson RN RN jl7 Narciso Saini RN RN jd3 Hilton Trevino DO DO ms3 Corrections: (The following items were deleted from the chart) 18:53 15:18 IV Saline Lock ordered. pm1 jd3
--- NOTE | 2021-12-21 19:06 | ER ---
Nurse's Notes [facility] Name: Ana Davis Age: 41 yrs Sex: Female : 1980 Arrival Date: 12/21/2021 Time: 15:16 Bed 19 [facility] MD: Diagnosis: Threatened Presentation: 12/21 15:41 Chief complaint: Patient states: Had a vaginal US yesterday and everything looked good, jl7 woke today with brown discharge and now it's pinkish. Denies pain. Coronavirus screen: At this time, the client does not indicate any symptoms associated with coronavirus-19. Ebola Screen: No symptoms or risks identified at this time. Initial Sepsis Screen: Does the patient meet any 2 criteria? No. Patient's initial sepsis screen is negative. Does the patient have a suspected source of infection? No. Patient's initial sepsis screen is negative. Risk Assessment: Do you want to hurt yourself or someone else? Patient reports no desire to harm self or others. Onset of symptoms was December 21, 2021. 15:41 Method Of Arrival: Ambulatory [facility] 15:41 Acuity: CHIP 3 jl7 Triage Assessment: 15:43 General: Appears in no apparent distress. uncomfortable, Behavior is calm, cooperative, jl7 appropriate for age. Pain: Denies pain. : Reports vaginal bleeding that is. 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 - Social history:: Smoking status: Patient denies any tobacco usage or history of. Screenin:05 Abuse screen: Denies threats or abuse. Nutritional screening: No deficits noted. jd3 Tuberculosis screening: No symptoms or risk factors identified. Fall Risk Ambulatory Aid- None/Bed Rest/Nurse Assist (0 pts). Gait- Normal/Bed Rest/Wheelchair (0 pts) Mental Status- Oriented to own ability (0 pts). Total Castellon Fall Scale indicates No Risk (0-24 pts). Assessment: 16:29 General: Appears in no apparent distress. comfortable, Behavior is calm, cooperative, jd3 appropriate for age, Reports current with vaginal bleeding. Pain: Denies pain. Neuro: Peacock Agitation-Sedation Scale (RASS): 0 - Alert and Calm Level of Consciousness is awake, alert, obeys commands, Oriented to person, place, time, situation. Cardiovascular: Capillary refill < 3 seconds Patient's skin is warm and dry. Respiratory: Airway is patent Respiratory effort is even, unlabored, Respiratory pattern is regular, symmetrical, Denies cough, labored breathing. GI: No signs and/or symptoms were reported involving the gastrointestinal system. : Reports vaginal bleeding that is that started off as a darker brown color and has continued and become more pink. EENT: No signs and/or symptoms were reported regarding the EENT system. Derm: Skin is intact, Skin is dry, Skin is normal, Skin temperature is warm. Musculoskeletal: Circulation, motion, and sensation intact. Range of motion: intact in all extremities. 17:12 Reassessment: Patient appears in no apparent distress at this time. No changes from jd3 previously documented assessment. Patient and/or family updated on plan of care and expected duration. Pain level reassessed. Patient is alert, oriented x 3, equal unlabored respirations, skin warm/dry/pink. 18:54 Reassessment: Patient appears in no apparent distress at this time. No changes from jd3 previously documented assessment. Patient and/or family updated on plan of care and expected duration. Pain level reassessed. Patient is alert, oriented x 3, equal unlabored respirations, skin warm/dry/pink. 19:21 Reassessment: Patient appears in no apparent distress at this time. Patient and/or jd3 family updated on plan of care and expected duration. Pain level reassessed. Patient is alert, oriented x 3, equal unlabored respirations, skin warm/dry/pink. Vital Signs: 15:41 BP 133 / 72; Pulse 84; Resp 17; Temp 98.4; Pulse Ox 100% ; Weight 61.23 kg; Height 5 jl7 ft. 8 in. (172.72 cm); Pain 0/10; 18:54 BP 116 / 66; Pulse 66; Resp 18; Pulse Ox 100% on R/A; jd3 19:21 BP 127 / 72; Pulse 65; Resp 16; Pulse Ox 100% on R/A; jd3 15:41 Body Mass Index 20.53 (61.23 kg, 172.72 cm) jl7 ED Course: 15:16 Patient arrived in ED. as 15:17 Wayne Condon NP is PHCP. pm1 15:17 Hilton Trevino DO is Attending Physician. pm1 15:43 Triage completed. jl7 15:43 Arm band placed on right wrist. jl7 15:51 Narciso Saini, RN is Primary Nurse. jd3 16:27 Initial lab(s) drawn, by me, sent to lab. jd3 17:05 Patient has correct armband on for positive identification. Bed in low position. Call jd3 light in reach. Side rails up X 1. Adult w/ patient. Pulse ox on. NIBP on. 17:28 US Transvaginal Ob In Process Unspecified. EDMS 18:54 No provider procedures requiring assistance completed. Patient did not have IV access jd3 during this emergency room visit. Administered Medications: 18:53 Drug: RhoGAM (Human) 300 mcg Route: IM; Site: right deltoid; jd3 19:22 Follow up: Response: No adverse reaction jd3 Medication: 17:05 VIS not applicable for this client. jd3 Outcome: 19:06 Discharge ordered by . pm1 19:22 Discharged to home ambulatory, with family. jd3 19:22 Condition: stable 19:22 Discharge instructions given to patient, family, Instructed on discharge instructions, follow up and referral plans. Demonstrated understanding of instructions, follow-up care. 19:23 Patient left the ED. jd3 Signatures: Dispatcher [employer] EDMS Gale Ivey as Wayne Condon NP FILM CUTTER pm1 Gal Dawson RN RN jl7 Narciso Saini, IVY RN jd3 Corrections: (The following items were deleted from the chart) 16:36 16:29 General: Appears in no apparent distress. comfortable, Behavior is calm, jd3 cooperative, appropriate for age, jd3
[2021-12-21 19:27] VITALS: TEMP 98.4; O2SAT 100
[2021-12-21 19:34] VITALS: BP 127/72
== END 2021-12-21 19:23 | disposition home or self-care (01) ==
LOC: ER 15:13
DX: O20.0 Threatened abortion (principal); Z88.1 Allergy status to other antibiotic agents; Z91.040 Latex allergy status; Z91.048 Other nonmedicinal substance allergy status
CPT/HCPCS: 85025; 80048; 36415; 86900; 86850; 81025; 85461; 86901 ×2; 84702; 81003; 76817; J2790

== ENCOUNTER 2021-12-23 00:30 | Emergency (ER) | payer OTHER ==
[2021-12-23] MEDS ORDERED: NA CHLORIDE 0.9% 1,000 ML ONE (01:07)
[2021-12-23 01:19] LABS: Hematocrit 39.4 % (36.0-45.0); Lymphocytes % 24.7 % (15.3-44.8); MCV 92.4 fL (80-100); MPV 7.6 fL (7.6-11.3); RBC Red Blood Cell Count 4.26 M/uL (3.86-4.86)
[2021-12-23 01:27] LABS: Urine Blood 2+ (Negative); Urine Glucose Negative (Negative); Urine Protein 1+ (Negative); Urine Specific Gravity 1.025 (1.005-1.030)
[2021-12-23 01:38] LABS: Urine Specific Gravity/Preg 1.025 (1.005-1.030)
[2021-12-23 02:02] LABS: Potassium 3.5 mmol/L (3.5-5.1)
--- NOTE | 2021-12-23 02:51 | EDPHYS ---
Physician Documentation [facility] Name: Ana Davis Age: 41 yrs Sex: Female : 1980 Arrival Date: 12/23/2021 Time: 00:33 Bed 5 Private MD: ED Physician Herman Cortez HPI: 12/23 02:45 This 41 yrs old Female presents to ER via Ambulatory with complaints of janet Vaginal Bleeding, + Preg <12wks, Abdominal Cramping. 02:45 The estimated gestational age is 6 weeks. course: care: private OB [facility] physician. Previous pregnancies: in previous pregnancies patient has had vaginal delivery. Associated signs and symptoms: The patient has no apparent associated signs or symptoms. 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 - Social history:: Smoking status: Patient denies any tobacco usage or history of. - Family history:: not pertinent. ROS: 02:45 Constitutional: Negative for fever, chills, and weight loss, Eyes: Negative for injury, janet pain, redness, and discharge, ENT: Negative for injury, pain, and discharge, Neck: Negative for injury, pain, and swelling, Cardiovascular: Negative for chest pain, palpitations, and edema, Respiratory: Negative for shortness of breath, cough, wheezing, and pleuritic chest pain, Abdomen/GI: Negative for abdominal pain, nausea, vomiting, diarrhea, and constipation, Back: Negative for injury and pain, MS/Extremity: Negative for injury and deformity, Skin: Negative for injury, rash, and discoloration, Neuro: Negative for headache, weakness, numbness, tingling, and seizure, Psych: Negative for depression, anxiety, suicide ideation, homicidal ideation, and hallucinations, Allergy/Immunology: Negative for hives, rash, and allergies, Endocrine: Negative for neck swelling, polydipsia, polyuria, polyphagia, and marked weight changes, Hematologic/Lymphatic: Negative for swollen nodes, abnormal bleeding, and unusual bruising. 02:45 : Positive for pelvic pain, vaginal bleeding. Exam: 02:45 Constitutional: This is a well developed, well nourished patient who is awake, alert, janet and in no acute distress. Head/Face: Normocephalic, atraumatic. Eyes: Pupils equal round and reactive to light, extra-ocular motions intact. Lids and lashes normal. Conjunctiva and sclera are non-icteric and not injected. Cornea within normal limits. Periorbital areas with no swelling, redness, or edema. ENT: Nares patent. No nasal discharge, no septal abnormalities noted. Tympanic membranes are normal and external auditory canals are clear. Oropharynx with no redness, swelling, or masses, exudates, or evidence of obstruction, uvula midline. Mucous membranes moist. Neck: Trachea midline, no thyromegaly or masses palpated, and no cervical lymphadenopathy. Supple, full range of motion without nuchal rigidity, or vertebral point tenderness. No Meningismus. Chest/axilla: Normal chest wall appearance and motion. Nontender with no deformity. No lesions are appreciated. Cardiovascular: Regular rate and rhythm with a normal S1 and S2. No gallops, murmurs, or rubs. Normal PMI, no JVD. No pulse deficits. Respiratory: Lungs have equal breath sounds bilaterally, clear to auscultation and percussion. No rales, rhonchi or wheezes noted. No increased work of breathing, no retractions or nasal flaring. Abdomen/GI: Soft, non-tender, with normal bowel sounds. No distension or tympany. No guarding or rebound. No evidence of tenderness throughout. Back: No spinal tenderness. No costovertebral tenderness. Full range of motion. Skin: Warm, dry with normal turgor. Normal color with no rashes, no lesions, and no evidence of cellulitis. MS/ Extremity: Pulses equal, no cyanosis. Neurovascular intact. Full, normal range of motion. Neuro: Awake and alert, GCS 15, oriented to person, place, time, and situation. Cranial nerves II-XII grossly intact. Motor strength 5/5 in all extremities. Sensory grossly intact. Cerebellar exam normal. Normal gait. Psych: Awake, alert, with orientation to person, place and time. Behavior, mood, and affect are within normal limits. Vital Signs: 00:47 BP 106 / 57; Pulse 61; Resp 16 S; Temp 98.5; Pulse Ox 100% on R/A; Weight 61.23 kg (R); aa9 Height 5 ft. 8 in. (172.72 cm) (R); 01:30 BP 117 / 67; Pulse 60; Resp 18 S; Pulse Ox 96% on R/A; as6 02:57 BP 105 / 52; Pulse 64; Resp 18 S; Pulse Ox 99% on R/A; as6 00:47 Body Mass Index 20.53 (61.23 kg, 172.72 cm) aa9 MDM: 00:36 Patient medically screened. janet 02:47 Differential diagnosis: threatened Ab, inevitable Ab, complete Ab, retained Ab, missed janet Ab. Data reviewed: vital signs, nurses notes, lab test result(s), radiologic studies, ultrasound. Data interpreted: budget assistant: not applicable for this patient encounter. rate is 61 beats/min, rhythm is regular, Pulse oximetry: on room air is 100 %. Counseling: I had a detailed discussion with the patient and/or guardian regarding: the historical points, exam findings, and any diagnostic results supporting the discharge/admit diagnosis, lab results. 12/23 00:38 Order name: Abo/rh Typing; Complete Time: 02:20 janet 12/23 00:38 Order name: Basic Metabolic Panel; Complete Time: 02:20 janet 12/23 00:38 Order name: CBC with Diff; Complete Time: 02:20 janet 12/23 00:38 Order name: Quantitative Hcg; Complete Time: 02:20 janet 12/23 01:27 Order name: Urine Dipstick-Ancillary; Complete Time: 02:20 EDMS 12/23 01:32 Order name: Urine --Ancillary (enter results); Complete Time: 02:20 mw2 12/23 00:38 Order name: Labs collected and sent; Complete Time: 01:14 janet 12/23 00:38 Order name: NPO; Complete Time: 01:14 janet 12/23 00:38 Order name: Urine Dipstick-Ancillary (obtain specimen); Complete Time: 01:26 janet 12/23 00:38 Order name: Urine Test (obtain specimen); Complete Time: 01:26 janet 12/23 01:37 Order name: OB Limited EDMS Administered Medications: 01:14 Not Given (Patient Refused): NS 0.9% 1000 ml IV at 1 bolus Per protocol; 1000 mL bolus aa9 Point of Care Testing: Urine : 02:56 hCG Reading: Positive; as6 Disposition Summary: 12/23/21 02:49 Discharge Ordered Location: Home [facility] Problem: new janet Symptoms: have improved janet Condition: Stable janet Diagnosis - Threatened janet - Less than 8 weeks gestation of janet - Hemorrhage in early , unspecified janet Followup: janet - With: Private Physician - When: 2 - 3 days - Reason: Recheck today's complaints, Continuance of care, Re-evaluation by your physician Discharge Instructions: - Discharge Summary Sheet janet - Threatened Miscarriage janet - Vaginal Bleeding During , First Trimester janet - First Trimester of , [id number] janet - Threatened Miscarriage, [id number] janet - Vaginal Bleeding During , First Trimester, [id number] janet Forms: - Medication Reconciliation Form janet - Thank You Letter janet - Antibiotic Education janet - Prescription Opioid Use janet Signatures: Dispatcher [employer] EDHerman Zapata MD MD cha Avalos, Aylin, RN RN aa9 Corrections: (The following items were deleted from the chart) 01:14 00:38 IV Saline Lock ordered. janet aa9 01:37 00:39 Transvaginal Ob+US.RAD.BRZ ordered. EDIN EDMS
--- NOTE | 2021-12-23 02:51 | ER ---
Nurse's Notes [facility] Name: Ana Davis Age: 41 yrs Sex: Female : 1980 Arrival Date: 12/23/2021 Time: 00:33 Bed 5 Private MD: Diagnosis: Threatened ;Less than 8 weeks gestation of ;Hemorrhage in early , unspecified Presentation: 12/23 00:47 Chief complaint: Patient states: bright red vaginal bleeding and cramping. Coronavirus aa9 screen: Client denies travel out of the [place] in the last 14 days. At this time, the client does not indicate any symptoms associated with coronavirus-19. Ebola Screen: No symptoms or risks identified at this time. Initial Sepsis Screen: Does the patient meet any 2 criteria? No. Patient's initial sepsis screen is negative. Initial Sepsis Screen: Does the patient have a suspected source of infection? No. Patient's initial sepsis screen is negative. Risk Assessment: Do you want to hurt yourself or someone else? Patient reports no desire to harm self or others. Onset of symptoms was December 23, 2021. 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 - Social history:: Smoking status: Patient denies any tobacco usage or history of. - Family history:: not pertinent. Screenin:46 Abuse screen: Denies threats or abuse. Denies injuries from another. Nutritional aa9 screening: No deficits noted. Tuberculosis screening: No symptoms or risk factors identified. Fall Risk None identified. Assessment: 00:38 Obstetrical Assessment: General assessment:. Obstetrical Assessment:. General: Appears aa9 in no apparent distress. uncomfortable, Behavior is calm, cooperative, anxious. General: States,"I came in yesterday I had brown spotting they sent me home said everything was fine. Today the blood is red and there is more. My last gyno appointment was three days ago.". Pain: Complains of pain in pelvis Pain does not radiate. Pain currently is 7 out of 10 on a pain scale. Quality of pain is described as crampy, Pain began 2 hours ago. Is intermittent, Alleviated by rest, Noted to be quiet/stoic, resistant to movement. : Reports vaginal bleeding that is bright red. 01:14 General: pt refused IV and fluids. provider notified . aa9 Vital Signs: 00:47 BP 106 / 57; Pulse 61; Resp 16 S; Temp 98.5; Pulse Ox 100% on R/A; Weight 61.23 kg (R); aa9 Height 5 ft. 8 in. (172.72 cm) (R); 01:30 BP 117 / 67; Pulse 60; Resp 18 S; Pulse Ox 96% on R/A; as6 02:57 BP 105 / 52; Pulse 64; Resp 18 S; Pulse Ox 99% on R/A; as6 00:47 Body Mass Index 20.53 (61.23 kg, 172.72 cm) aa9 ED Course: 00:33 Patient arrived in ED. bp1 00:36 Herman Cortez MD is Attending Physician. janet 00:38 Kaye Caballero, IVY is Primary Nurse. aa9 00:52 Diet: Patient is NPO. mh5 00:52 Patient has correct armband on for positive identification. Placed in gown. Bed in low mh5 position. Call light in reach. Side rails up X 1. Adult w/ patient. Warm blanket given. Pulse ox on. NIBP on. 01:14 Quantitative Hcg Sent. aa9 01:14 CBC with Diff Sent. aa9 01:14 Basic Metabolic Panel Sent. aa9 01:14 Abo/rh Typing Sent. aa9 02:41 OB Limited In Process Unspecified. EDMS 02:55 Triage completed. as6 02:55 No provider procedures requiring assistance completed. Patient did not have IV access as6 during this emergency room visit. 02:56 Arm band placed on. as6 Administered Medications: 01:14 Not Given (Patient Refused): NS 0.9% 1000 ml IV at 1 bolus Per protocol; 1000 mL bolus aa9 Medication: 02:56 VIS not applicable for this client. as6 Point of Care Testing: Urine : 02:56 hCG Reading: Positive; as6 Outcome: 02:49 Discharge ordered by . janet 02:56 Discharged to home ambulatory, with family. as6 02:56 Condition: stable 02:56 Discharge instructions given to patient, Instructed on discharge instructions, follow up and referral plans. Demonstrated understanding of instructions, follow-up care. 02:57 Patient left the ED. as6 Signatures: Dispatcher [employer] EDUT Herman Cortez MD MD cha Martinez, [facility] Nessa Aguilar Ashby, RN RN as6 Kaye Caballero RN RN aa9
[2021-12-23 03:01] VITALS: TEMP 98.5
[2021-12-23 03:04] VITALS: BP 105/52; O2SAT 99
--- NOTE | 2021-12-24 12:51 | RAD REPORT ---
EXAM DESCRIPTION: OB Limited 12/23/2021 3:24 AM CDT CLINICAL HISTORY: 41 years, Female, ABD CRAMPING, COMPARISON: None. TECHNIQUE: Utilizing a curved array transducer, real-time ultrasound evaluation of the female pelvis was performed. Color Doppler imaging was used to assess vascular flow. FINDINGS: The uterus measures 10.9 x 5.1 x 6.3 cm. 2 gestational sacs are identified which are low p osition of a there is one gestational sac with a pole and a crown-rump length. The measurement of 0.58 cm corresponding to a ultrasonographic gestational age of 6 weeks and 3 days the abdomen gest ational sac demonstrate no evidence for pole. No cardiac activity is identified in either gesta tional sac. No focal masses were identified within the uterus. The right ovary measured 2.6 x 1.7 x 2.3 cm. There is normal vascular flow and spectral waveforms wit h no evidence for torsion. The left ovary was not visualized due to overlying gas. No free fluid was identified in the posterior cul-de-sac, no adnexal masses seen. IMPRESSION: 2 gestational sac within the lower uterine segment, one of the gestational sacs demonstr ate a pole. No cardiac activity is detected possibility of in progress cannot be exclu ded. Continued to follow-up is recommended with serial beta-hCG and/or ultrasound could be of assista nce. Left ovary was not visualized. No adnexal masses seen Electronically signed by: Hipolito Morel MD 12/23/2021 3:29 AM CDT Due to temporary technical issues with the PACS/Fluency reporting system, reports are being signed by the in house radiologists without review as a courtesy to insure prompt reporting. The interpreting radiologist is fully responsible for the content of the report.
== END 2021-12-23 02:57 | disposition home or self-care (01) ==
LOC: ER 00:30
DX: O20.0 Threatened abortion (principal); Z3A.01 Less than 8 weeks gestation of pregnancy; Z88.1 Allergy status to other antibiotic agents; Z91.040 Latex allergy status; Z91.048 Other nonmedicinal substance allergy status
CPT/HCPCS: 85025; 80048; 36415; 86900; 81025; 86901; 84702; 81003; 76815; J7030; 99284

== ENCOUNTER 2024-09-10 22:49 | Emergency (ER) | payer OTHER, SELFPAY ==
--- OUTSIDE RECORDS SUMMARY | 2024-09-10 22:54 | XMS REPORT | Continuity of Care Document ---
Author Name Unknown Address [address] [facility] [address] [place] [address] [facility] Address [address] [address] [address] [place] [address] Care Team Providers Care Student Admissions Clerk Name Role Phone PCP, PATIENT DOES NOT HAVE A Primary Care Physic pat Unavailable CHRISTINA RAMOS Attending Clinician Unavailable CAROLINA WALLIS Attending Clinician Unavail able Kadi WHCarolina BUTLER Attending Clinician + MERCEDES LEE Attending Clinician Unavaila ble Visit, [facility] Nurse Attending Clinician Unava illindy Doctor Unassigned, [place] Attending Clinician U Ashley Moreland MD Attending Clinician [phone] ASHLEY POON Attending Clinician Unavailable ABIGAIL BARTON Attending Clinician Unavailable Abigail Barton MD Attending Clinician [phone] ELIZABETH ALVAREZ Attending Clinician Unavaila ble TRIEILZABETH ESCUDERO Attending Clinician Unavaila ble Lab, Ang - Db Attending Clinician Unavailable Samantha Gayle PA-C Attending Clinician [phone] SAMANTHA GAYLE Attending Clinician Unavailable Kalyani Russo RN Attending Clinician Unavaila ble Only, Ang Db Test Attending Clinician UnavailKristal Wharton Attending Clinician [phone] KRISTAL KEYS Attending Clinician Unavailable 1, Adc Lab Attending Clinician Unavailable Basilio Isbell MD Attending Clinician [phone] Harshil ESPINOZA Marisa Eddie Attending Clinician Lab, Adc Fam Pob I Attending Clinician Hipolito Tavera PA-C Attending Clinician Margot Renee MD Attending Clinician [phone] MARGOT RENEE Attending Clinician Unavailable CAROLINA WALLIS Admitting Clinician Unavail ABIGAIL Carter Admitting Clinician Unavailable Payers Payer Name Policy Type Policy Number Effective Date Expirati on Date Source [facility] [id number] 2024 00:00:00 [facility] [place] [facility] [id number] 2023 00:00:00 Problems Condition Name Condition Details Condition Category Status Onset Date Resolution Date Last Treatment Date Treating Clinician Comments Source Pain pelvic Pain pelvic Disease Active 2021-06- 00:00: 00 [facility] Abdominal bloating with cramps Abdominal bloating with cramps Disease Active 2021-06 00:00: 00 [facility] SAB (spontaneo us ) SAB (spontaneo us ) Disease Active 7-14 00:00: 00 [facility] History of depression History of depression Disease Active -07 00:00: 00 [facility] Anxiety Anxiety Disease Active 18 00:00: 00 [facility] Elevated blood pressure reading without diagnosis of hypertensi on Elevated blood pressure reading without diagnosis of hypertensi on Disease Active 18 00:00: 00 [facility] History of breast augmentati on History of breast augmentati on Disease Active 18 00:00: 00 [facility] History of perforated ear drum History of perforated ear drum Disease Active 10-31 00:00: 00 [facility] Human papilloma virus (HPV) infection Human papilloma virus (HPV) infection Disease Active 18 00:00: 00 [facility] Major depressive disorder, single episode, unspecifie d Major depressive disorder, single episode, unspecifie d Disease Active 10-31 00:00: 00 [facility] Pain in right foot Pain in right foot Disease Active 10-31 00:00: 00 [facility] Palpitatio ns Palpitatio ns Disease Active 10-31 00:00: 00 [facility] Posttrauma tic stress disorder Posttrauma tic stress disorder Disease Active 10-31 00:00: 00 [facility] Ventral hernia without obstructio n or gangrene Ventral hernia without obstructio n or gangrene Disease Active 10-31 00:00: 00 [facility] Ventral hernia without obstructio n or gangrene Ventral hernia without obstructio n or gangrene Problem Active [facility] Palpitatio ns Palpitatio ns Diagnosis Active [facility] Elevated BP without diagnosis of hypertensi on Elevated BP without diagnosis of hypertensi on Problem Active [facility] Anxiety Anxiety Problem Active [facility] Right foot pain Right foot pain Problem Active [facility] Depression Depression Problem Active [facility] High risk HPV infection High risk HPV infection Problem Active [facility] History of perforated ear drum History of perforated ear drum Problem Active [facility] Encounter for general adult medical examinatio n without abnormal findings Encounter for general adult medical examinatio n without abnormal findings Diagnosis Active [facility] PTSD (post-trau matic stress disorder) PTSD (post-trau matic stress disorder) Problem Active [facility] H/O breast augmentati on H/O breast augmentati on Problem Active [facility] Allergies, Adverse Reactions, Alerts Allergy Name Allergy Type Status Severity Reaction(s) Onset Date Inactive Date Treating Clinician Comments Source Sulfamet hoxazole Propensi ty to adverse reaction s Active Swelling 324 00:00: 00 [facility] SULFAMET HOXAZOLE DRUG INGREDI Active Med Swelling 2020-0 3-24 00:00: 00 [facility] Banana Drug Allergy Active Unknown - See comments 01-07 00:00: [address] [facility] Latex Drug Allergy Active Unknown - See comments 01-07 00:00: 00 [facility] Sulfamet hoxazole -Trimeth oprim Drug Allergy Active Unknown - See comments 01-07 00:00: [address] [facility] BANANA DRUG INGREDI Active Unknown-Cmnt 01-07 00:00: 00 [facility] LATEX DRUG INGREDI Active Unknown-Cmnt 01-07 00:00: 00 [facility] SULFAMET HOXAZOLE -TRIMETH OPRIM DRUG Active Unknown-Cmnt 01-07 00:00: 00 [facility] Bactrim Adverse Reaction Active Info Not Available [facility] Latex Adverse Reaction Active Info Not Available [facility] Banana (Diagnos tic) Adverse Reaction Active Info Not Available [facility] Social History Social Habit Start Date Stop Date Quantity Comments Source ASSERTION [facility] History SDOH Alcohol Frequency [facility] History SDOH Alcohol Std Drinks [facility] History SDOH Alcohol Binge [facility] Alcohol intake 2023-10-02 00:00:00 2023-10-02 00:00:00 Current drinker of alcohol (finding) [facility] History of Social function 2023-10-02 00:00:00 2023-10-02 00:00:00 [facility] Alcoholic beverage intake 2023-10-02 00:00:00 2023-10-02 00:00:00 Current drinker of alcohol (finding) [facility] Exposure to SARS-CoV-2 (event) 2022-08-25 00:00:00 2022-09-04 15:04:00 Not sure [facility] Alcohol Comment 2022-03-28 00:00:00 2022-03-28 00:00:00 rare [facility] Tobacco use and exposure 2021-12-27 00:00:00 2021-12-27 00:00:00 Smokeless tobacco non-user [facility] Sex assigned at 1980 00:00:00 1980 00:00:00 [facility] Smoking Status Start Date Stop Date Source Never smoked tobacco [facility] Medications Ordered Medication Name Filled Medication Name Start Date Stop Date Current Medication? Ordering Clinician Indication Dosage Frequency Signature (SIG) Comments Components Source Lactobacill us acidophilus (PROBIOTIC ORAL) 2021-06 09:56: 04 Yes Take by mouth. [facility] Coenzyme Q10 10 mg Cap 2021-06 09:56: 04 Yes Take by mouth. [facility] MAGNESIUM CITRATE ORAL 12-20 10:43: 52 Yes Take by mouth. [facility] Coenzyme Q10 10 mg Cap 12-20 10:43: 52 Yes Take by mouth. [facility] BusPIRone HCl BusPIRone HCl 09-09 00:00: 00 Yes Franklin Arriaza 1 tablet [facility] Baby Aspirin Baby Aspirin Yes Franklin Arriaza not defined [facility] Fish Oil Fish Oil Yes Franklin Arriaza 1 capsule [facility] Smita Smita Yes Franklin Arriaza as directed [facility] Garlic Garlic Yes Franklin Arriaza as directed [facility] Vitamin B Complex Vitamin B Complex Yes Franklin Arriaza as directed [facility] Multivitami n Adult Multivitami n Adult Yes [facility] Arriaza as directed [facility] Probiotic Probiotic Yes Franklin Arriaza as directed [facility] Immunizations Ordered Immunization Name Filled Immunization Name Date Status Comments Source Influenza Virus Vaccine Quad .5 mL IM 6+ MO (FLUZONE/FLULAVAL/FL UARIX) Unknown Completed [facility] Influenza Virus Vaccine Quad .5 mL IM 6+ MO (FLUZONE/FLULAVAL/FL UARIX) Unknown Completed [facility] Influenza Virus Vaccine Quad .5 mL IM 6+ MO (FLUZONE/FLULAVAL/FL UARIX) Unknown Completed [facility] Influenza Virus Vaccine Quad .5 mL IM 6+ MO (FLUZONE/FLULAVAL/FL UARIX) Unknown Completed [facility] Influenza Virus Vaccine Quad .5 mL IM 6+ MO (FLUZONE/FLULAVAL/FL UARIX) Unknown Completed [facility] Influenza Virus Vaccine Quad .5 mL IM 6+ MO (FLUZONE/FLULAVAL/FL UARIX) Unknown Completed [facility] Influenza Virus Vaccine Quad .5 mL IM 6+ MO (FLUZONE/FLULAVAL/FL UARIX) Unknown Completed [facility] Influenza Virus Vaccine Quad .5 mL IM 6+ MO (FLUZONE/FLULAVAL/FL UARIX) Unknown Completed [facility] Influenza Virus Vaccine Quad .5 mL IM 6+ MO (FLUZONE/FLULAVAL/FL UARIX) Unknown Completed [facility] Influenza Virus Vaccine Quad .5 mL IM 6+ MO (FLUZONE/FLULAVAL/FL UARIX) Unknown Completed [facility] Influenza Virus Vaccine Quad .5 mL IM 6+ MO (FLUZONE/FLULAVAL/FL UARIX) Unknown Completed [facility] Vital Signs Vital Name Observation Time Observation Value Comments S ource Systolic blood pressure 2023-10-02 15:22:00 118 mm[Hg] [facility] acute hospital Diastolic blood pressure 2023-10-02 15:22:00 69 mm[Hg] General acute hospital Heart rate 2023-10-02 15:22:00 68 /min [facility] Body temperature 2023-10-02 15:22:00 37 Lucy [facility] Respiratory rate 2023-10-02 15:22:00 18 /min [facility] Body height 2023-10-02 15:22:00 172.7 cm [facility] Body weight 2023-10-02 15:22:00 59.104 kg [facility] BMI 2023-10-02 15:22:00 19.81 kg/m2 [facility] Systolic blood pressure 2023-05-28 21:39:00 124 mm[Hg] General acute hospital Diastolic blood pressure 2023-05-28 21:39:00 75 mm[Hg] General acute hospital Heart rate 2023-05-28 21:39:00 68 /min [facility] Body temperature 2023-05-28 21:39:00 36.17 Lucy [facility] Respiratory rate 2023-05-28 21:39:00 18 /min [facility] Body height 2023-05-28 21:39:00 172.7 cm [facility] Body weight 2023-05-28 21:39:00 60.419 kg [facility] BMI 2023-05-28 21:39:00 20.25 kg/m2 [facility] Body temperature 2023-04-09 14:39:00 36.11 Lucy [facility] Systolic blood pressure 2022-09-04 20:22:00 123 mm[Hg] General acute hospital Diastolic blood pressure 2022-09-04 20:22:00 74 mm[Hg] General acute hospital Heart rate 2022-09-04 20:22:00 104 /min [facility] Body temperature 2022-09-04 20:22:00 36.72 Lucy [facility] Respiratory rate 2022-09-04 20:22:00 16 /min [facility] Body height 2022-09-04 20:22:00 172.7 cm [facility] Body weight 2022-09-04 20:22:00 62.143 kg [facility] BMI 2022-09-04 20:22:00 20.83 kg/m2 [facility] Systolic blood pressure 2022-03-28 14:54:00 112 mm[Hg] General acute hospital Diastolic blood pressure 2022-03-28 14:54:00 73 mm[Hg] General acute hospital Heart rate 2022-03-28 14:54:00 63 /min [facility] Body temperature 2022-03-28 14:54:00 36.83 Lucy [facility] Respiratory rate 2022-03-28 14:54:00 18 /min [facility] Body height 2022-03-28 14:54:00 172.7 cm [facility] Body weight 2022-03-28 14:54:00 60.782 kg [facility] BMI 2022-03-28 14:54:00 20.37 kg/m2 [facility] Systolic blood pressure 2022-03-27 16:55:00 111 mm[Hg] General acute hospital Diastolic blood pressure 2022-03-27 16:55:00 70 mm[Hg] General acute hospital Heart rate 2022-03-27 16:55:00 57 /min [facility] Body temperature 2022-03-27 16:55:00 36.78 Lucy [facility] Respiratory rate 2022-03-27 16:55:00 18 /min [facility] Body height 2022-03-27 16:55:00 172.7 cm [facility] Body weight 2022-03-27 16:55:00 60.782 kg [facility] BMI 2022-03-27 16:55:00 20.37 kg/m2 [facility] Procedures Procedure Date / Time Performed Performing Clinician Source BI SCREENING TOMOSYNTHESIS BILATERAL 2023-10-16 13:59:22 Carolina Wallis [facility] US PELVIS COMPLETE WITH TRANSVAGINAL 2023-10-08 15:08:14 Carolina Wallis [facility] THYROID STIMULATING HORMONE 2023-10-02 16:09:00 Carolina Wallis [facility] LIPID PANEL (55921)(TOTAL CHOLESTEROL, TRIGLYCERIDES, HDL) 2023-10-02 16:09:00 Carolina Wallis [facility] CBC WITH DIFF 2023-10-02 16:09:00 Carolina Wallis [facility] GC & CHLAMYDIA AMPLIFIED ASSAY 2023-05-28 22:41:00 Carolina Wallis [facility] HIGH RISK HPV-THIN PREP 2023-05-28 22:41:00 Carolina Wallis [facility] TRICHOMONAS AMPLIFIED ASSAY 2023-05-28 22:41:00 Carolina Wallis [facility] PAP SMEAR-LIQUID BASED-CP 2023-05-28 22:41:00 Carolina Wallis [facility] CONSENT/REFUSAL FOR DIAGNOSIS AND TREATMENT 2023-04-09 14:33:13 Doctor Unassigned, [place] [facility] ASSIGNMENT OF BENEFITS 2023-04-09 14:32:59 Docto r Unassigned, [place] [facility] "RWSP MARTINE ONLY" FLU VACC(), 6+ MONTHS, IM, QUAD (FLUZONE/FLULAVAL/FLUARI X) 2023-04-09 14:30:48 Carolina Wallis [facility] PATIENT FINANCIAL POLICY 2022-09-04 20:05:53 Doctor Unassigned, [place] [facility] POCT URINALYSIS W/O SPECIFIC GRAVITY 2022-09-04 00:00:00 Ashley Poon [facility] TOTAL BETA HCG ASSAY 2022-02-07 16:14:00 Abigail Barton [facility] ULTRASOUND 2021-12-27 05:01:00 Doc tor Unassigned, [place] [facility] Encounters Start Date/Time End Date/Time Encounter Type Admission Type Attending Clinicians Care Facility Care Department Encounter ID Source 2024-09-14 13:30:00 2024-09-14 13:30:00 Outpatient CHRISTINA RAMOS [id number] Rita Lim 2024-06-02 09:00:00 2024-06-02 09:00:00 Outpatient R CAROLINA WALLIS [facility] [id number] [facility] 2023-12-02 08:15:00 2023-12-02 08:15:00 Outpatient R CAROLINA WALLIS [facility] [id number] [facility] 2023-10-08 00:00:00 2023-11-08 18:04:19 Patient Secure Msg Carolina Wallis [facility] [employer] MATERNAL & CHILD [facility] 1.2.840.114 350.1.13.10 4.2.7.2.686 [id number] [facility] 2023-10-16 08:22:18 2023-10-16 23:59:00 Outpatient R CAROLINA WALLIS [facility] [id number] [facility] 2023-10-16 08:20:00 2023-10-16 23:59:00 Hospital Encounter Carolina Wallis [facility] 1.2840.114 350.1.13.10 4.2.7.2.686 [id number] [facility] 2023-10-10 00:00:00 2023-10-10 00:00:00 Telephone KadiCarolina El [facility] [employer] [facility] & CHILD [facility] 1.840.114 350.1.13.10 4.2.7.2.686 [id number] [facility] 2023-10-08 09:24:17 2023-10-08 23:59:00 Outpatient R CAROLINA WALLIS [facility] [id number] [facility] 2023-10-08 09:00:00 2023-10-08 23:59:00 Hospital Encounter Carolina Wallis [facility] [id number] 350.1.13.10 4.2.7.2.686 [id number] [facility] 2023-10-02 10:00:00 2023-10-02 11:12:05 Outpatient R CAROLINA WALLIS [facility] [id number] [facility] 2023-10-02 10:00:00 2023-10-02 11:12:05 Office Visit JacobpriscillaCarolina [facility] [employer] [facility] & CHILD [facility] 1.840.114 350.1.13.10 4.2.7.2.686 [id number] [facility] 2023-09-26 08:00:00 2023-09-26 08:00:00 Outpatient R MERCEDES LEE [facility] [id number] [facility] 2023-09-25 00:00:00 2023-09-25 00:00:00 Telephone Carolina Wallis [facility] [employer] [facility] & CHILD [facility] 1.2.840.114 350.1.13.10 4.2.7.2.686 [id number] [facility] 2023-09-24 00:00:00 2023-09-24 00:00:00 Telephone Carolina Wallis [facility] FLYING [employer] [facility] CHILD [facility] 1..840.114 350.1.13.10 4.2.7.2.686 [id number] [facility] 2023-09-17 11:00:00 2023-09-17 11:00:00 Outpatient R MERCEDES LEE [facility] [id number] [facility] 2023-09-16 08:00:00 2023-09-16 08:00:00 Outpatient R MERCEDES ELE [facility] [id number] [facility] 2023-08-06 07:10:32 2023-08-06 23:59:00 Outpatient R CAROLINA WALLIS [facility] [id number] [facility] 2023-08-06 07:10:32 2023-08-06 23:59:00 Hospital Encounter Carolina Wallis [facility] ..840.114 350.1.13.10 4.2.7.2.686 [id number] [facility] 2023-05-28 15:15:00 2023-05-28 16:33:02 Outpatient R CAROLINA WALLIS [facility] [id number] [facility] 2023-05-28 15:15:00 2023-05-28 16:33:02 Office Visit Carolina Wallis [facility] FLYING [employer] [facility] MATERNAL & CHILD [facility] 1.0.114 350.1.13.10 4.2.7.2.686 [id number] [facility] 2023-05-27 13:30:00 2023-05-27 13:30:00 Outpatient R CAROLINA WALLIS [facility] [id number] [facility] 2023-05-21 13:30:00 2023-05-21 13:30:00 Outpatient R MERCEDES LEE [facility] [id number] [facility] 2023-04-09 09:30:00 2023-04-09 09:39:59 Outpatient R CAROLINA WALLIS [facility] [id number] [facility] 2023-04-09 09:30:00 2023-04-09 09:39:59 Nurse Visit Visit, [facility] Nurse Carolina Wallis [facility] FLYING [employer]ER [facility] MATERNAL & CHILD [facility] 1.0.114 350.1.13.10 4.2.7.2.686 [id number] [facility] 2023-04-09 00:00:00 2023-04-09 00:00:00 Orders Only Doctor Unassigned, [place] [facility] 1.840.114 350.1.13.10 4.2.7.2.686 [id number] [facility] 2022-09-06 00:00:00 2022-09-06 00:00:00 Ashley Vera [facility] 1..114 350.1.13.10 4.2.7.2.686 [id number] [facility] 2022-09-04 15:00:00 2022-09-04 15:42:14 Outpatient R ASHLEY POON [facility] [id number] [facility] 2022-09-04 15:00:00 2022-09-04 15:42:14 Office Visit Ashley Poon [facility] 1.2840.114 350.1.13.10 4.2.7.2.686 [id number] [facility] 2022-09-04 00:00:00 2022-09-04 00:00:00 Orders Only Doctor Unassigned, [place] [facility] 1.2840.114 350.1.13.10 4.2.7.2.686 [id number] [facility] 2022-04-03 11:20:48 2022-04-03 23:59:00 Outpatient R ABIGAIL BARTON [facility] [id number] [facility] 2022-04-03 11:00:00 2022-04-03 23:59:00 Hospital Encounter MickMarcn [facility] 1.2.840.114 350.1.13.10 4.2.7.2.686 [id number] [facility] 2022-03-28 09:30:00 2022-03-28 10:13:18 Outpatient R ELIZABETH ALVAREZ CHERYAL [facility] [id number] [facility] 2022-03-28 09:30:00 2022-03-28 10:13:18 Office Visit Elizabeth Alvarez [facility] 1.2840.114 350.1.13.10 4.2.7.2.686 [id number] [facility] 2022-03-27 11:30:00 2022-03-27 12:12:36 Outpatient R ELIZABETH ALVAREZ CHERYAL [facility] [id number] [facility] 2022-03-27 11:30:00 2022-03-27 12:12:36 Office Visit Tritschler, [facility] 1.840.114 350.1.13.10 4.2.7.2.686 [id number] [facility] 2022-02-20 13:00:00 2022-02-20 13:00:00 Outpatient R ELIZABETH ALVAREZ [facility] [id number] [facility] 2022-02-14 00:00:00 2022-02-14 00:00:00 Outpatient R ABIGAIL BARTON [facility] [id number] [facility] 2022-02-14 00:00:00 2022-02-14 00:00:00 Telephone Mick [facility] 1.840.114 350.1.13.10 4.2.7.2.686 [id number] [facility] 2022-02-13 09:15:00 2022-02-13 09:30:00 Closing Manager Visit Lab, [facility] 1..840.114 350.1.13.10 4.2.7.2.686 [id number] [facility] 2022-02-13 09:15:00 2022-02-13 09:15:00 Outpatient R ABIGAIL BARTON [facility] [id number] [facility] 2022-02-07 11:00:00 2022-02-07 11:19:27 Closing Manager Visit Lab, Ang - Db [facility] 1..840.114 350.1.13.10 4.2.7.2.686 [id number] [facility] 2022-02-07 11:00:00 2022-02-07 11:00:00 Outpatient R ABIGAIL BARTON [facility] [id number] [facility] 2022-02-06 00:00:00 2022-02-06 00:00:00 Telephone Abigail Barton [facility] 1.2.840.114 350.1.13.10 4.2.7.2.686 [id number] [facility] 2022-01-30 11:00:00 2022-01-30 11:35:50 Closing Manager Visit Lab, Freddy Simeon Cain Barton [facility] 1.2.840.114 350.1.13.10 4.2.7.2.686 [id number] [facility] [facility] 2022-01-30 11:00:00 2022-01-30 11:00:00 Outpatient R ABIGAIL BARTON [facility] [id number] [facility] 2022-01-30 11:00:00 2022-01-30 11:00:00 Outpatient R ABIGAIL BARTON [facility] [id number] [facility] 2022-01-24 00:00:00 2022-01-24 00:00:00 Case Management Abigail Barton [facility] 1.2.840.114 350.1.13.10 4.2.7.2.686 [id number] 134 [id number] [facility] 2022-01-22 12:00:00 2022-01-22 12:15:00 Closing Manager Visit Lab, Freddy Barton [facility] 1.2.840.114 350.1.13.10 4.2.7.2.686 [id number] [facility] 2022-01-22 12:00:00 2022-01-22 12:00:00 Outpatient R ABIGAIL BARTON [facility] [id number] [facility] 2022-01-22 11:00:00 2022-01-22 11:00:00 Outpatient R [facility] [id number] [facility] 2022-01-15 12:00:00 2022-01-15 12:15:00 Closing Manager Visit Lab, Ang - Db Abigail Barton [facility] 1..840.114 350.1.13.10 4.2.7.2.686 [id number] [facility] 2022-01-15 12:00:00 2022-01-15 12:00:00 Outpatient R ABIGAIL BARTON [facility] [id number] [facility] 2022-01-15 11:00:00 2022-01-15 11:00:00 Outpatient R ABIGAIL BARTON [facility] [id number] [facility] 2022-01-15 00:00:00 2022-01-15 00:00:00 Case Management Mick Abigail [facility] BU[facility] 1..840.114 350.1.13.10 4.2.7.2.686 [id number] 134 [id number] [facility] 2022-01-08 10:00:00 2022-01-08 10:00:00 Outpatient R [facility] [id number] [facility] 2022-01-03 10:00:00 2022-01-03 10:32:12 Outpatient R ABIGAIL BARTON [facility] [id number] [facility] 2022-01-03 10:00:00 2022-01-03 10:32:12 Routine Visit Abigail Barton [facility] 1.840.114 350.1.13.10 4.2.7.2.686 [id number] 134 [id number] [facility] 2021-12-27 09:15:00 2021-12-27 10:19:21 Outpatient R ABIGAIL BARTON [facility] [id number] [facility] 2021-12-27 09:15:00 2021-12-27 10:19:21 Routine Visit Abigail Barton [facility] 1.2840.114 350.1.13.10 4.2.7.2.686 [id number] 134 [id number] [facility] 2021-12-27 00:00:00 2021-12-27 00:00:00 Orders Only Doctor Unassigned, [place] [facility] 1.2840.114 350.1.13.10 4.2.7.2.686 [id number] [facility] 2021-12-25 10:00:00 2021-12-25 10:00:00 Outpatient R [facility] [id number] [facility] 2021-12-21 00:00:00 2021-12-21 00:00:00 Telephone Mick Abigail [facility] 1.2840.114 350.1.13.10 4.2.7.2.686 [id number] [facility] 2021-12-20 10:15:00 2021-12-20 11:17:26 Outpatient R ABIGAIL BARTON [facility] [id number] [facility] 2021-12-20 10:15:00 2021-12-20 11:17:26 Routine Visit Abigail Barton [facility] 1.2840.114 350.1.13.10 4.2.7.2.686 [id number] 134 [id number] [facility] 2021-12-20 10:15:00 2021-12-20 10:15:00 Outpatient R ABIGAIL BARTON [facility] [id number] [facility] 2021-12-14 00:00:00 2021-12-14 00:00:00 Telephone Mick Abigail [facility] 1.2840.114 350.1.13.10 4.2.7.2.686 [id number] 134 [id number] [facility] 2021-12-13 11:15:00 2021-12-13 11:30:00 Closing Manager Visit Lab, Freddy - Cain Barton [facility] 1..840.114 350.1.13.10 4.2.7.2.686 [id number] [facility] 2021-12-13 11:15:00 2021-12-13 11:15:00 Outpatient R [facility] [id number] [facility] 2021-12-13 11:15:00 2021-12-13 11:15:00 Outpatient R ABIGAIL BARTON [facility] [id number] [facility] 2021-12-13 00:00:00 2021-12-13 00:00:00 Orders Only Doctor Unassigned, [place] [facility] 1.840.114 350.1.13.10 4.2.7.2.686 [id number] [facility] 2021-12-11 11:15:00 2021-12-11 11:30:00 Closing Manager Visit Lab, Freddy Barton [facility] 1..840.114 350.1.13.10 4.2.7.2.686 [id number] [facility] 2021-12-11 09:30:00 2021-12-11 10:41:46 Outpatient R ABIGAIL BARTON [facility] [id number] [facility] 2021-12-11 09:30:00 2021-12-11 10:41:46 Initial Visit Abigail Barton [facility] 1.840.114 350.1.13.10 4.2.7.2.686 [id number] [facility] 2021-12-11 00:00:00 2021-12-11 00:00:00 Telephone Abigail Barton [facility] 1.114 350.1.13.10 4.2.7.2.686 [id number] 134 [id number] [facility] 2021-12-10 00:00:00 2021-12-10 00:00:00 Telephone Samantha Gayle [facility] 1.114 350.1.13.10 4.2.7.2.686 [id number] [facility] 2021-11-05 13:00:00 2021-11-05 13:00:00 Outpatient Jonathan [facility] [id number] [facility] 2021-10-03 15:00:00 2021-10-03 15:00:00 Outpatient Jonathan [facility] [id number] [facility] 2021-07-01 00:00:00 2021-07-01 00:00:00 Telephone Kalyani Russo [facility] 1.114 350.1.13.10 4.2.7.2.686 [id number] [facility] 2021-06-30 16:45:00 2021-06-30 17:00:00 Laboratory Only Only, Ang [facility] 1.84.114 350.1.13.10 4.2.7.2.686 [id number] [facility] 2021-06-30 16:45:00 2021-06-30 16:45:00 Outpatient KRISTAL WOODALL [facility] [id number] [facility] 2021-02-09 13:11:33 2021-02-09 13:26:33 Closing Manager Visit 1, Adc Lab Basilio Isbell [facility] 1.114 350.1.13.10 4.2.7.2.686 [id number] [facility] 2021-02-09 12:30:00 2021-02-09 12:30:00 Outpatient R [facility] [id number] [facility] 2020-10-10 13:00:00 2020-10-10 23:59:00 Hospital Encounter Samantha Gayle [facility] 1.0.114 350.1.13.10 4.2.7.2.686 [id number] [facility] 2020-10-10 00:00:00 2020-10-10 00:00:00 [id number] 2020-10-10 00:00:00 2020-10-10 00:00:00 Orders Only Doctor Unassigned, [place] [facility] 1..114 350.1.13.10 4.2.7.2.686 [id number] [facility] 2020-10-05 00:00:00 2020-10-05 00:00:00 Outpatient R SAMANTHA GAYLE [facility] [id number] [facility] 2020-09-21 00:00:00 2020-09-21 00:00:00 Telephone Samantha Gayle [facility] 1..114 350.1.13.10 4.2.7.2.686 [id number] [facility] 2020-09-20 11:13:47 2020-09-20 12:12:32 [facility] 1.84.114 350.1.13.10 4.2.7.2.686 [id number] 134 [id number] [facility] 2020-09-20 11:13:47 2020-09-20 12:12:32 [facility] 1.2.114 350.1.13.10 4.2.7.2.686 [id number] 2020-09-20 10:45:00 2020-09-20 10:45:00 Outpatient R SAMANTHA GAYLE [facility] [id number] [facility] 2020-09-20 00:00:00 2020-09-20 00:00:00 Orders Only Samantha Gayle [facility] 1..114 350.1.13.10 4.2.7.2.686 [id number] [facility] 2020 00:00:00 2020 00:00:00 Telephone Irwin Samantha [facility] Building 1.840.114 350.1.13.10 4.2.7.2.686 [id number] [facility] 2020-09-11 14:30:00 2020-09-11 14:30:00 Outpatient R [facility] [id number] [facility] 2020-09-08 00:00:00 2020-09-08 00:00:00 Telephone Marisa Chua [facility] Office Building One 1.84.114 350.1.13.10 4.2.7.2.686 [id number] [facility] 2020-09-07 17:50:17 2020-09-07 18:10:17 Laboratory Only Lab, Ad[facility] ..114 350.1.13.10 4.2.7.2.686 [id number] [facility] 2020-09-07 17:20:00 2020-09-07 17:20:00 Outpatient R [facility] [id number] [facility] 2020-09-07 15:40:00 2020-09-07 15:40:00 Outpatient R [facility] [id number] [facility] 2020-09-07 00:00:00 2020-09-07 00:00:00 Letter (Out) Doctor Unassigned, [place] [facility] 1.2.840.114 350.1.13.10 4.2.7.2.686 [id number] [facility] 2020-09-07 00:00:00 2020-09-07 00:00:00 Letter (Out) Doctor Unassigned, [place] [facility] 1.2.840.114 350.1.13.10 4.2.7.2.686 [id number] [facility] 2019-12-16 00:00:00 2019-12-16 00:00:00 Orders Only Doctor Unassigned, [place] [facility] 1.2.840.114 350.1.13.10 4.2.7.2.686 [id number] [facility] 2019-12-11 00:00:00 2019-12-11 00:00:00 Telephone [facility] 1.2.840.114 350.1.13.10 4.2.7.2.686 [id number] 134 [id number] [facility] 2019-11-22 00:00:00 2019-11-22 00:00:00 Telephone [facility] Building 1.2.840.114 350.1.13.10 4.2.7.2.686 [id number] 134 [id number] [facility] 2019-11-12 00:00:00 2019-11-12 00:00:00 Telephone [facility] Building 1.2.840.114 350.1.13.10 4.2.7.2.686 [id number] 134 [id number] [facility] 2019-11-11 14:00:00 2019-11-11 14:00:00 Outpatient R MARGOT RENEE [facility] [id number] [facility] 2019-11-11 00:00:00 2019-11-11 00:00:00 Telephone Margot Renee [facility] Professio nal Building 1.2.840.114 350.1.13.10 4.2.7.2.686 [id number] 134 [id number] [facility] 2019-09-20 00:00:00 2019-09-20 00:00:00 Telephone Margot Renee [facility] Professio nal Building 1.2.840.114 350.1.13.10 4.2.7.2.686 [id number] [facility] 2019-09-12 00:00:00 2019-09-12 00:00:00 [facility] 1.2.840.114 350.1.13.10 4.2.7.2.686 [id number] [facility] 2019-09-09 13:36:09 2019-09-09 14:24:08 Office Visit [facility] 1.2.840.114 350.1.13.10 4.2.7.2.686 [id number] 134 [id number] [facility] 2019-09-09 13:30:00 2019-09-09 13:30:00 Outpatient R MARGOT RENEE [facility] [id number] [facility] 2019-09-09 00:00:00 2019-09-09 00:00:00 Orders Only Doctor Unassigned, [place] [facility] 1.2.840.114 350.1.13.10 4.2.7.2.686 [id number] [facility] 2019-09-08 00:00:00 2019-09-08 00:00:00 Telephone Samantha Gayle [facility] 1.2.840.114 350.1.13.10 4.2.7.2.686 [id number] [facility] 2019-09-08 00:00:00 2019-09-08 00:00:00 Telephone Samantha Gayle [facility] Office Building One 1.2.840.114 350.1.13.10 4.2.7.2.686 [id number] [facility] 2019-09-08 00:00:00 2019-09-08 00:00:00 Telephone Samantha Gayle [facility] 1.2.840.114 350.1.13.10 4.2.7.2.686 [id number] [facility] 2019-09-07 08:17:41 2019-09-07 12:50:47 Telemedici ne Visit Irwin [facility] 1.2.840.114 350.1.13.10 4.2.7.2.686 [id number] [facility] 2019-01-07 14:45:00 2019-01-07 14:45:00 Outpatient [facility] [id number] [facility] 2018-09-28 10:00:00 2018-09-28 10:00:00 Outpatient [facility] [id number] [facility] 2018-09-09 10:15:00 2018-09-09 10:15:00 Outpatient [facility] [id number] [facility] 2018-08-27 16:49:00 2018-08-27 16:49:00 Outpatient [facility] [id number] [facility] 2018-08-26 10:30:00 2018-08-26 10:30:00 [facility] [id number] Results Test Description Test Time Test Comments Results Resul t Comments Source US PELVIS COMPLETE WITH TRANSVAGINAL 2023-09-16 4 15:12:41 HISTORY: ?Irregular menses. TECHNIQUE: Both transabdominal and transvaginal pelvic ultrasound studieswere completed by the technologist. FINDINGS: Uterus is of normal size and shape, measures approximately 8.2 x4.6 x 5.8 cm in size with heterogeneous echo texture of the myometrium. Nofocal fibroids visualized in the myometrium, however. Endometrial echocomplex is 2.0 mm. No free fluid in the cul-de-sac. Right ovary is 2.6 x 1.7 x 0.7 cm ( 1.71 ml) and left ovary is 2.8 x 2.4 x0.9 cm ( 3.08 ml). Single follicle of 10 x 7 mm noted in the left ovary ami smaller follicle is present in the right ovary. CONCLUSIONS: Essentially normal study. [facility] W/O SPECIFIC [id number] 20:19:00* Test Item Value Reference Range Interpretation Comme nts POCT PH U (test code = 3254) 5 mg/dl 5-8 POCT U LEUK EST (test code = 3263) trace Negative - Negative POCT U NIT (test code = 3262) negative Negative - Negati ve POCT U PROT (test code = 3259) trace Negative - Negat natalia POCT U GLU (test code = 3256) negative Negative - Negati ve POCT U KETONE (test code = 3258) + Negative - Neg ative POCT U BLD (test code = 3257) negative Negative - Negati ve [facility], [facility]AT[facility], [id number] 21:34:18* Test Item Value Reference Range Interpretation Comme nts BETA HCG (test code = 6408683232) See_Comment [Automated [employer]] The system which generated this result transmitted reference range: Non- female and male patients: <5 mIU/mL. The reference range was not used to interpret this result as normal/abnormal. GREG (test code = GREG) Gestational Age ?Range (mIU/mL) 1-10 ?Weeks ?[id number] Weeks ?12250-96542275-25 Weeks ?4802-77812880-56 Weeks ?[id number] Biotin has been reported to cause a negative bias, interpret results relative to patient's use of biotin. [facility] Notes Date/Time Note Provider Source 2023-10-10 15:47:26 Called pt, discussed results with patient. Pt verbalized understanding. Becky Braga RN 10/10/23 3:48 PM [facility] 2023-10-10 15:24:24 Please notify the patient of her exam results, WNL Narrative & Impression HISTORY: Irregular menses. TECHNIQUE: Both transabdominal and transvaginal pelvic ultrasound studies were completed by the technologist. FINDINGS: Uterus is of normal size and shape, measures approximately 8.2 x 4.6 x 5.8 cm in size with heterogeneous echo texture of the myometrium. No focal fibroids visualized in the myometrium, however. Endometrial echo complex is 2.0 mm. No free fluid in the cul-de-sac. Right ovary is 2.6 x 1.7 x 0.7 cm ( 1.71 ml) and left ovary is 2.8 x 2.4 x 0.9 cm ( 3.08 ml). Single follicle of 10 x 7 mm noted in the left ovary and a smaller follicle is present in the right ovary. CONCLUSIONS: Essentially normal study. SHANA Ordoñez 10/10/2023 3:24 PM [facility] 2023-09-25 16:34:07 Called patient and scheduled appointment for 10-02-2023. Jennifer Alejandro [facility] 2023-09-25 16:24:54 Routed to PSS to reschedule when patient is out of 10 day quarantine. Pt notified and will have pss call pt. Pt verbalized understanding. Becky Braga RN 09/25/23 4:25 PM [facility] 2023-09-24 11:24:43 Pt called having irregular periods. Pt reports under stress and recently diagnosed with covid. Pt denies any heavy bleeding, cramps, and or pain. Pt educated on irregular cycles and causes, pt to call back when out of quarantine if desires appt. Strict er warnings given. Pt verbalized understanding. Becky Braga RN 09/24/23 11:25 AM [facility] 2023-09-24 09:48:31 Pt returning missed call from clinic, requesting call back. Please F/u T Xavi Braga [facility] 2023-09-24 09:25:46 Attempted to call patient, no answer, vm full. [facility] 2023-09-24 09:20:53 Copied from [facility] #[id number]. Topic: Clinical - Medical Advice >> Sep 24, 2023 9:18 AM Patient Merchandise Presentation Associate wrote: Pt is requesting call back, states had cycle it was late but normal, now she tested positive for covid and has started cycle again. Wants to know if this is something that can happen? Please call [phone] (home) IE [facility]bollar [facility]
[2024-09-11 00:02] LABS: Absolute Eosinophils 0.2 K/uL (0-0.5); Absolute Lymphocytes (CBC) 2.1 K/uL (0.7-4.9); Absolute Monocytes 0.4 K/uL (0.1-1.3); Absolute Neutrophil 6.1 K/uL (1.8-8.0); Basophils % 0.5 % (0-1.3); Eosinophils % 2.3 % (0-4.4); Hematocrit 39.7 % (36.0-45.0); Hemoglobin 13.5 g/dL (12.0-15.0); Lymphocytes % 23.7 % (15.3-44.8); MCH 30.7 pg (27.0-35.0); MCHC 33.9 g/dL (32.0-36.0); MCV 90.6 fL (80-100); MPV 7.7 fL (7.6-11.3); Monocytes % 4.8 % (3.3-12.3); Neutrophils % 68.7 % (41.7-73.7); Nucleated Red Blood Cells % 0.1 % (0-0); Platelets 249 thou/uL (152-406); RBC Red Blood Cell Count 4.38 M/uL (3.86-4.86); Red Cell Distribution Width 12.5 % (12.1-15.2)
[2024-09-11 00:04] LABS: D-Dimer 0.292 FEUug/mL (0-0.500); PT Prothrombin Time 11.6 SECONDS (10-13.0); Protime INR 1.02
[2024-09-11 00:09] LABS: ALT/SGPT 26 U/L (13-56); AST/SGOT 13 U/L (15-37); Albumin/Globulin Ratio 1.1 (1.1-1.8); Alkaline Phosphatase 45 U/L (45-117); Anion Gap 10.5 mEq/L (5.0-15.0); BUN Blood Urea Nitrogen 11 mg/dL (7-18); Bicarbonate 30 mEq/L (21-32); Bilirubin Total 0.5 mg/dL (0.2-1.0); Globulin 3.7 g/dL (2.3-3.5); Glomerular Filtration Rate 86 ml/min (=/>90); Glucose Level 104 mg/dL (74-106); Lipase 60 U/L (13-75); Magnesium 2.1 mg/dL (1.6-2.4); NT PRO-BNP 37 pg/mL (<125); Potassium 3.5 mEq/L (3.5-5.1); Protein, Total 7.7 g/dL (6.4-8.2); Sodium Level 139 mEq/L (136-145); Troponin High Sensitivity 3.1 pg/mL (<58.9)
[2024-09-11 00:16] LABS: Bilirubin Direct < 0.2 mg/dL (0-0.2); Bilirubin Indirect, Calculated 0.3 mg/dL (0.2-0.8)
--- NOTE | 2024-09-11 01:07 | RAD REPORT ---
EXAM DESCRIPTION: XR CHEST 1 VIEW 09/10/2024 11:55 PM CDT CLINICAL HISTORY: 43 years, Female, Chest pain. COMPARISON: XR Chest 07/31/2018. FINDINGS: 1 view of the chest (AP portable projection) was obtained. No prior films are available at this shalonda e for comparison. There is normal lung volume. Mediastinum: The cardiomediastinal silhouette appears normal in size and shape. Lungs: No areas of consolidations or masses are identified. Heart: The heart is normal in size. Thoracic aorta: The thoracic aorta demonstrate to be normal. Pulmonary vasculature: The pulmonary vasculature is normal in distribution. Pleura: The costophrenic angles demonstrate to be sharp. Osseous structures: The bony structures demonstrate to be within normal limits. Other: None. IMPRESSION: No acute cardiopulmonary disease is seen Electronically signed by: Hipolito Morel MD 09/11/2024 12:01 AM CDT RP Due to temporary technical issues with the PACS/Flirq reporting system, reports are being divine d by the in-house radiologist without review as a courtesy to ensure prompt reporting the interpreting radiologist is fully responsible for the content of the report. Transcribed Date/Time: 09/11/2024 1:06 AM
--- NOTE | 2024-09-11 01:44 | EDPHYS ---
Physician Documentation [facility] Name: Ana Davis Age: 43 yrs Sex: Female : 1980 Arrival Date: 09/10/2024 Time: 22:49 Bed 12 Private MD: ED Physician Herman Cortez HPI: 09/10 23:15 This 43 yrs old Female presents to ER via Unassigned with complaints of Chest janet Pain. 23:15 The patient or guardian reports chest pain that is located primarily in the anterior janet chest wall, left. Onset: just prior to arrival. The pain radiates to Associated signs and symptoms: Pertinent positives: None. Pertinent negatives: cough, dizziness. The chest pain is described as sharp. Duration: The patient or guardian reports multiple episodes, with no pattern. Modifying factors: The symptoms are alleviated by nothing. the symptoms are aggravated by nothing. Severity of pain: At its worst the pain was moderate in the emergency department the pain has improved moderately. The patient has not experienced similar symptoms in the past. 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 - Infectious Disease History:: Denies. - Family history:: not pertinent. - Social history:: Smoking status: Patient denies any tobacco usage or history of. Patient uses alcohol, occasionally. Patient/guardian denies using street drugs. ROS: 23:16 Constitutional: Negative for fever, chills, and weight loss, Eyes: Negative for injury, janet pain, redness, and discharge, ENT: Negative for injury, pain, and discharge, Neck: Negative for injury, pain, and swelling, Respiratory: Negative for shortness of breath, cough, wheezing, and pleuritic chest pain, Abdomen/GI: Negative for abdominal pain, nausea, vomiting, diarrhea, and constipation, Back: Negative for injury and pain, : Negative for injury, bleeding, discharge, and swelling, MS/Extremity: Negative for injury and deformity, Skin: Negative for injury, rash, and discoloration, Neuro: Negative for headache, weakness, numbness, tingling, and seizure, Psych: Negative for depression, anxiety, suicide ideation, homicidal ideation, and hallucinations, Allergy/Immunology: Negative for hives, rash, and allergies, Endocrine: Negative for neck swelling, polydipsia, polyuria, polyphagia, and marked weight changes, Hematologic/Lymphatic: Negative for swollen nodes, abnormal bleeding, and unusual bruising, 23:16 Cardiovascular: Positive for chest pain, Exam: 23:16 Constitutional: This is a well developed, well nourished patient who is awake, alert, janet and in no acute distress. Head/Face: Normocephalic, atraumatic. Eyes: Pupils equal round and reactive to light, extra-ocular motions intact. Lids and lashes normal. Conjunctiva and sclera are non-icteric and not injected. Cornea within normal limits. Periorbital areas with no swelling, redness, or edema. ENT: Nares patent. No nasal discharge, no septal abnormalities noted. Tympanic membranes are normal and external auditory canals are clear. Oropharynx with no redness, swelling, or masses, exudates, or evidence of obstruction, uvula midline. Mucous membranes moist. Neck: Trachea midline, no thyromegaly or masses palpated, and no cervical lymphadenopathy. Supple, full range of motion without nuchal rigidity, or vertebral point tenderness. No Meningismus. Chest/axilla: Normal chest wall appearance and motion. Nontender with no deformity. No lesions are appreciated. Cardiovascular: Regular rate and rhythm with a normal S1 and S2. No gallops, murmurs, or rubs. Normal PMI, no JVD. No pulse deficits. Respiratory: Lungs have equal breath sounds bilaterally, clear to auscultation and percussion. No rales, rhonchi or wheezes noted. No increased work of breathing, no retractions or nasal flaring. Abdomen/GI: Soft, non-tender, with normal bowel sounds. No distension or tympany. No guarding or rebound. No evidence of tenderness throughout. Back: No spinal tenderness. No costovertebral tenderness. Full range of motion. Skin: Warm, dry with normal turgor. Normal color with no rashes, no lesions, and no evidence of cellulitis. MS/ Extremity: Pulses equal, no cyanosis. Neurovascular intact. Full, normal range of motion., bilateral aka Neuro: Awake and alert, GCS 15, oriented to person, place, time, and situation. Cranial nerves II-XII grossly intact. Motor strength 5/5 in all extremities. Sensory grossly intact. Cerebellar exam normal. Normal gait. Psych: Awake, alert, with orientation to person, place and time. Behavior, mood, and affect are within normal limits. 23:16 ECG was reviewed by the Attending Physician. 23:21 Musculoskeletal/extremity: DVT Exam: No signs of deep vein thrombosis. no pain, no janet swelling, no tenderness, negative Homans' sign noted on exam, no appreciated bluish discoloration, no erythema, no increased warmth, 09/11 01:42 ECG was reviewed by the Attending Physician. [facility] Vital Signs: 09/10 23:18 BP 141 / 69; Pulse 83; Resp 16 S; Temp 97.9(O); Pulse Ox 100% on R/A; Weight 58.06 kg; lg3 Height 5 ft. 8 in. (R); Pain 0/10; 09/11 01:30 BP 138 / 70; Pulse 70; Resp 18; Pulse Ox 100% ; kj2 02:12 BP 99 / 65; Pulse 76; Resp 20; Pulse Ox 100% on R/A; kj2 09/10 23:18 Body Mass Index 19.46 (58.06 kg, 172.72 cm) lg3 09/10 23:18 Pain Scale: Adult lg3 MDM: 09/10 23:03 Medical Screening Exam initiated [facility] 23:17 Differential diagnosis: abnormal EKG, acute myocardial infarction, acute pericarditis, janet anxiety, coronary artery disease chest wall pain, congestive heart failure cholecystitis, Cholelithiasis esophagitis, gastritis, herpes zoster, hiatal hernia, peptic ulcer disease, pericarditis, pleurisy, pneumonia, pulmonary embolus, stable angina, unstable angina. HEART Score: History: Slightly Suspicious (0), ECG: Normal (0), Age: < or = 45 years (0), Risk Factors: No Risk Factors Known (0), Troponin: < or = 1 x Normal Limit (0), Total Score = 0. The patient was given aspirin in the Emergency Department. SOCORRO Risk Score: TOTAL SCORE = 0. Data reviewed: vital signs, nurses notes, lab test result(s), EKG, radiologic studies, plain films. Consideration of Admission/Observation Escalation of care including admission/observation considered. I considered the following discharge prescriptions or medication management in the emergency department Medications were administered in the Emergency Department. See MAR. Independent interpretation of the following test(s) in the Emergency Department EKG: See my EKG interpretation above. Test considered but Not performed: Ultrasound no 2 d echo. 09/10 23:04 Order name: Basic Metabolic Panel; Complete Time: 00:20 [facility] 09/10 23:04 Order name: CBC with Diff; Complete Time: 00:20 [facility] 09/10 23:04 Order name: LFT's; Complete Time: 00:20 [facility] 09/10 23:04 Order name: Magnesium; Complete Time: 00:20 [facility] 09/10 23:04 Order name: NT PRO-BNP; Complete Time: 00:20 [facility] 09/10 23:04 Order name: PT-INR; Complete Time: 00:20 [facility] 09/10 23:04 Order name: Troponin HS; Complete Time: 00:20 [facility] 09/10 23:04 Order name: Lipase; Complete Time: 00:20 [facility] 09/10 23:15 Order name: Troponin High Sensitivity: 130 am [facility] 09/10 23:49 Order name: D-Dimer; Complete Time: 00:20 [facility] 09/10 23:04 Order name: XRAY Chest (1 view) 09/11 00:20 Order name: EKG; Complete Time: 00:21 [facility] 09/10 23:04 Order name: Cardiac monitoring; Complete Time: 00:36 [facility] 09/10 23:04 Order name: EKG - Nurse/Tech; Complete Time: 23:11 [facility] 09/10 23:04 Order name: IV Saline Lock; Complete Time: 00:36 [facility] 09/10 23:04 Order name: Labs collected and sent; Complete Time: 00:36 [facility] 09/10 23:04 Order name: O2 Per Protocol; Complete Time: 00:36 [facility] 09/10 23:04 Order name: O2 Sat Monitoring; Complete Time: 00:36 [facility] 09/10 23:37 Order name: Bilateral blood pressure; Complete Time: 00:35 09/11 00:20 Order name: EKG - Nurse/Tech; Complete Time: 00:35 [facility] EC:16 Rate is 82 beats/min. Rhythm is regular. QRS [place] is Normal. [place] interval is normal. QRS janet interval is normal. QT interval is normal. No Q waves. T waves are Normal. No ST changes noted. Clinical impression: NSR w/ Non-specific ST/T Changes and No evidence of ischemia. Interpreted by me. Reviewed by me. 09/11 01:42 Rate is 70 beats/min. Rhythm is regular. QRS [place] is Normal. [place] interval is normal. QRS janet interval is normal. QT interval is normal. No Q waves. T waves are Normal. No ST changes noted. Clinical impression: Normal ECG and No evidence of ischemia. Interpreted by me. Reviewed by me. Administered Medications: 01:47 Not Given (Patient Refused): ns 0.9% 1000 ml IV at 1000 ml once; to be given as a bolus lg3 over 60 minutes 01:47 Not Given (Patient Refused): [id number] mg IVP once; dilute with 10 mL 0.9% NaCl; lg3 give over 2 minutes 01:47 Not Given (Patient Refused): toprol xl25 mg PO once lg3 01:47 Not Given (Patient Refused): ativan0.5 mg IVP once lg3 01:48 Not Given (Patient Refused): aspirinchewable tablet 324 mg PO once; 81 mg tablets x 4 lg3 Disposition Summary: 09/11/24 01:43 Discharge Ordered Notes: Location: Home janet Problem: new janet Symptoms: have improved janet Condition: Stable janet Diagnosis - Chest pain, unspecified janet - Anxiety disorder, unspecified janet Followup: janet - With: Private Physician - When: 2 - 3 days - Reason: Recheck today's complaints, Continuance of care, Re-evaluation by your physician Followup: janet - With: Darren De La Rosa MD - When: 2 - 3 days - Reason: Recheck today's complaints, Re-evaluation by your physician Followup: janet - With: Chase Joshi DO - When: 2 - 3 days - Reason: Recheck today's complaints, Re-evaluation by your physician Discharge Instructions: - Discharge Summary Sheet janet - Panic Attack janet - Nonspecific Chest Pain, Adult janet - Nonspecific Chest Pain, Adult, [id number] janet - Aspirin and Your Heart janet - Managing Anxiety, Adult janet Forms: - Medication Reconciliation Form janet - Antibiotic Education janet - Prescription Opioid Use janet - Patient Portal Instructions [facility] - Leadership Thank You Letter [facility] Prescriptions: - Pepcid 20 mg Oral tablet - take 1 tablet ORAL route every 12 hours for 10 days; 42 tablet; Refills: 0, janet Product Selection Permitted - Xanax 0.5 mg Oral Tablet - take 1 tablet ORAL route every 8 hours As needed; 20 tablet; Refills: 0, janet Product Selection Permitted - Toprol XL 25 mg Oral Tablet - take 1 tablet ORAL route once daily; 20 tablet; Refills: 0, Product Selection janet Permitted Signatures: Dispatcher [employer] EDMS Herman Cortez MD MD cha Able, Lacie, RN RN lg3 Corrections: (The following items were deleted from the chart) 09/10 23:05 23:05 BASIC METABOLIC PANEL+C.LAB.BRZ ordered. EDMS EDMS 23:05 23:05 CBC+H.LAB.BRZ ordered. EDMS EDMS 23:05 23:05 HEPATIC FUNCTION+C.LAB.BRZ ordered. EDMS EDMS 23:05 23:05 MAGNESIUM+C.LAB.BRZ ordered. EDMS EDMS 23:05 23:05 PROBNP+C.LAB.BRZ ordered. EDMS EDMS 23:05 23:05 PROTIME (+INR)+COAG.LAB.BRZ ordered. EDMS EDMS 23:05 23:05 Troponin High Sensitivity+C.LAB.BRZ ordered. EDMS EDMS 23:05 23:05 LIPASE+C.LAB.BRZ ordered. EDMS EDMS 23:05 23:05 Chest Single View+RAD.RAD.BRZ ordered. EDMS EDMS 23:14 23:14 Angio Aorta For Dissection+CT.RAD.BRZ ordered. EDMS EDMS 23:15 23:15 Troponin High Sensitivity+C.LAB.BRZ ordered. EDMS EDMS 23:49 23:37 D-DIMER+COAG.LAB.BRZ ordered. EDMS EDMS
--- NOTE | 2024-09-11 01:44 | ER ---
Nurse's Notes [facility] Name: Ana Davis Age: 43 yrs Sex: Female : 1980 Arrival Date: 09/10/2024 Time: 22:49 Bed 12 Private MD: Diagnosis: Chest pain, unspecified;Anxiety disorder, unspecified Presentation: 09/10 23:18 Chief complaint: Patient states: sudden onset CP X2 episodes lasting few seconds. 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 Coronavirus screen: Client denies travel out of the [place] in the last 14 days. Ebola Screen: No symptoms or risks identified at this time. Initial Sepsis Screen: Does the patient meet any 2 criteria? No. Patient's initial sepsis screen is negative. Does the patient have a suspected source of infection? No. Patient's initial sepsis screen is negative. Risk Assessment: Do you want to hurt yourself or someone else? Patient reports no desire to harm self or others. Onset of symptoms was September 10, 2024. 23:18 Method Of Arrival: Ambulatory lg3 23:18 Acuity: CHIP 3 lg3 Triage Assessment: 23:18 General: Appears in no apparent distress. comfortable, Behavior is calm, cooperative. lg3 Pain: Denies pain. EENT: No deficits noted. No signs and/or symptoms were reported regarding the EENT system. Neuro: No deficits noted. Peacock Agitation-Sedation Scale (RASS): 0 - Alert and Calm Level of Consciousness is awake, alert, obeys commands, Oriented to person, place, time, situation. Cardiovascular: No deficits noted. Denies chest pain, shortness of breath, Capillary refill < 3 seconds Clubbing of nail beds is absent JVD is absent Patient's skin is warm and dry. Rhythm is sinus rhythm. Respiratory: No deficits noted. Airway is patent Respiratory effort is even, unlabored, Respiratory pattern is regular, symmetrical. GI: No deficits noted. No signs and/or symptoms were reported involving the gastrointestinal system. : No signs and/or symptoms were reported regarding the genitourinary system. Derm: No deficits noted. No signs and/or symptoms reported regarding the dermatologic system. Skin is intact, is healthy with good turgor, Skin is dry, Skin is normal, Skin temperature is warm. Musculoskeletal: No deficits noted. No signs and/or symptoms reported regarding the musculoskeletal system. Circulation, motion, and sensation intact. Range of motion: intact in all extremities. JANITOR CARETAKER: 23:18 LMP 08/13/2024, unknown lg3 Historical: - Allergies: 23:18 Bactrim; lg3 23:18 Latex; lg3 - Home Meds: 23:18 None [Active]; lg3 - PMHx: 23:18 Anxiety; lg3 - PSHx: 23:18 None; lg3 - Immunization history:: Adult Immunizations up to date. - Infectious Disease History:: Denies. - Family history:: not pertinent. - Social history:: Smoking status: Patient denies any tobacco usage or history of. Patient uses alcohol, occasionally. Patient/guardian denies using street drugs. Screenin:49 [facility] ED Fall Risk Assessment (Adult) History of falling in the last 3 months, kj2 including since admission No falls in past 3 months (0 pts) Confusion or Disorientation No (0 pts) Intoxicated or Sedated No (0 pts) Impaired Gait No (0 pts) Mobility Assist Device Used No (0 pt) Altered Elimination No (0 pt) Score/Fall Risk Level 0 - 2 = Low Risk Maintained a safe environment, Hourly rounding (assess needs \T\ fall precautionary measures) done. Abuse screen: Denies threats or abuse. Denies injuries from another. Nutritional screening: No deficits noted. Tuberculosis screening: No symptoms or risk factors identified. Assessment: 23:36 General: Appears in no apparent distress. Behavior is calm. Pain: Complains of pain in kj2 chest Pain does not radiate. Pain currently is 0 out of 10 on a pain scale. Pain began 2 hours ago. Neuro: Level of Consciousness is awake, alert, obeys commands, Oriented to person, place, time, situation. Cardiovascular: Patient's skin is warm and dry. Respiratory: Airway is patent Respiratory effort is unlabored. GI: No signs and/or symptoms were reported involving the gastrointestinal system. : No signs and/or symptoms were reported regarding the genitourinary system. 09/11 00:30 Reassessment: Patient appears in no apparent distress at this time. Patient and/or kj2 family updated on plan of care and expected duration. Pain level reassessed. Patient is alert, oriented x 3, equal unlabored respirations, skin warm/dry/pink. 01:30 Reassessment: Patient appears in no apparent distress at this time. Patient and/or kj2 family updated on plan of care and expected duration. Pain level reassessed. Patient is alert, oriented x 3, equal unlabored respirations, skin warm/dry/pink. 02:04 Reassessment: Patient appears in no apparent distress at this time. Patient and/or kj2 family updated on plan of care and expected duration. Pain level reassessed. Patient is alert, oriented x 3, equal unlabored respirations, skin warm/dry/pink. Vital Signs: 09/10 23:18 BP 141 / 69; Pulse 83; Resp 16 S; Temp 97.9(O); Pulse Ox 100% on R/A; Weight 58.06 kg; lg3 Height 5 ft. 8 in. (R); Pain 0/10; 09/11 01:30 BP 138 / 70; Pulse 70; Resp 18; Pulse Ox 100% ; kj2 02:12 BP 99 / 65; Pulse 76; Resp 20; Pulse Ox 100% on R/A; kj2 09/10 23:18 Body Mass Index 19.46 (58.06 kg, 172.72 cm) lg3 09/10 23:18 Pain Scale: Adult lg3 ED Course: 09/10 22:50 Patient arrived in ED. rg4 23:03 Herman Cortez MD is Attending Physician. janet 23:10 EKG done, by ED staff, reviewed by Herman Cortez MD. sa1 23:18 Arm band placed on right wrist. EKG completed in triage. Results shown to MD. lg3 23:24 Triage completed. lg3 23:26 Nanda Arciniega, IVY is Primary Nurse. kj2 23:41 XRAY Chest (1 view) In Process Unspecified. EDMS 23:41 Inserted saline lock: 20 gauge in right antecubital area, using aseptic technique. sa1 Blood collected. Flushed with 10 mL NS. 23:44 Initial lab(s) drawn, by me, sent to lab. sa1 23:50 Patient has correct armband on for positive identification. Provided Education on: call kj2 light. Client placed on continuous cardiac and pulse oximetry monitoring. NIBP monitoring applied. satellite project site monitor on. Pulse ox on. 09/11 01:43 Darren De La Rosa MD is Referral Physician. janet 01:43 Chase Joshi DO is Referral Physician. [facility] 02:05 No provider procedures requiring assistance completed. kj2 02:22 IV discontinued, intact, bleeding controlled, No redness/swelling at site. Pressure kj2 dressing applied. 02:22 Patient maintains SpO2 saturation greater than 95% on room air. kj2 Administered Medications: 01:47 Not Given (Patient Refused): ns 0.9% 1000 ml IV at 1000 ml once; to be given as a bolus lg3 over 60 minutes 01:47 Not Given (Patient Refused): [id number] mg IVP once; dilute with 10 mL 0.9% NaCl; lg3 give over 2 minutes 01:47 Not Given (Patient Refused): toprol xl25 mg PO once lg3 01:47 Not Given (Patient Refused): ativan0.5 mg IVP once lg3 01:48 Not Given (Patient Refused): aspirinchewable tablet 324 mg PO once; 81 mg tablets x 4 lg3 Medication: 09/10 23:50 VIS not applicable for this client. kj2 Outcome: 09/11 01:43 Discharge ordered by . [facility] 02:21 Discharged to home ambulatory, kj2 02:21 Condition: stable 02:21 Discharge instructions given to patient, Instructed on discharge instructions, follow up and referral plans. Demonstrated understanding of instructions, follow-up care, medications, 02:23 Patient left the ED. kj2 Signatures: Dispatcher [employer] Herman Galvan MD MD cha Garcia, Rubi rg4 Deanna Gardner, RN RN lg3 Sultan arnold Mims Nanda Arciniega, RN RN kj2
[2024-09-11 02:37] VITALS: TEMP 97.9; O2SAT 100
[2024-09-11 02:48] VITALS: BP 99/65
--- NOTE | 2024-09-13 11:25 | EKG ---
Test Date: 2024-09-11 Test Time: 01:26:06 Java Programmer Analyst: MEASUREMENT RESULTS: Intervals: Rate: 70 NC: 116 QRSD: 86 QT: 414 QTc: 447 [place]: P: 70 NC: 116 QRS: 84 T: 52 INTERPRETIVE STATEMENTS: Normal sinus rhythm Normal ECG Compared to ECG 09/10/2024 23:07:45 No significant changes Electronically Signed On 09-13-24 11:20:32 CDT by Lamin Aguilar
--- NOTE | 2024-09-13 11:26 | EKG ---
Test Date: 2024-09-10 Test Time: 23:07:45 Lead Teller: MEASUREMENT RESULTS: Intervals: Rate: 82 [place]: 112 QRSD: 90 QT: 394 QTc: 460 [place]: P: 75 [place]: 112 QRS: 84 T: 50 INTERPRETIVE STATEMENTS: Normal sinus rhythm Normal ECG Compared to ECG 09/01/2018 02:17:02 ST (T wave) deviation no longer present Electronically Signed On 09-13-24 11:20:43 CDT by Lamin Aguilar
== END 2024-09-11 02:23 | disposition home or self-care (01) ==
LOC: ER 22:49
DX: R07.89 Other chest pain (principal); F41.9 Anxiety disorder, unspecified
CPT/HCPCS: 36415; 71045; 80048; 80076; 83690; 83735; 83880; 84484; 85025; 85379; 85610; 93005; 99284

== ENCOUNTER 2024-09-26 18:28 | Emergency (ER) | payer OTHER, SELFPAY ==
--- OUTSIDE RECORDS SUMMARY | 2024-09-26 18:33 | XMS REPORT | Continuity of Care Document ---
Author Name Unknown Address [address] [facility] [place] [address] [facility] Address [address] [facility] [address] [place] [address] Care Team Providers Care Singer Songwriter Name Role Phone PCP, PATIENT DOES NOT HAVE A Primary Care Physic pat Unavailable CHRISTINA RAMOS Attending Clinician Unavailable CAROLINA WALLIS Attending Clinician Unavail able Kadi WHCarolina BUTLER Attending Clinician + MERCEDES LEE Attending Clinician Unavaila ble Visit, Freddy-Rmchp Nurse Attending Clinician Unava ilable Doctor Unassigned, [place] Attending Clinician U Ashley Moreland MD Attending Clinician [phone] ASHLEY POON Attending Clinician Unavailable ABIGAIL BARTON Attending Clinician Unavailable Abigail Barton MD Attending Clinician [phone] ELIZABETH ALVAREZ Attending Clinician Unavaila ELIZABETH Wei Attending Clinician Unavaila ble Lab, Ang - Db Attending Clinician Unavailable Samantha Gayle PA-C Attending Clinician [phone] SAMANTHA GAYLE Attending Clinician Unavailable Kalyani Russo RN Attending Clinician Unavaila ble Only, Ang Db Test Attending Clinician Unavailabl hoang ESPINOZA, Kristal Attending Clinician KRISTAL KEYS Attending Clinician Unavailable 1, Adc Lab Attending Clinician Unavailable Basilio Isbell MD Attending Clinician [phone] Harshil ESPINOZA, Marisa Morgan Attending Clinician [phone] Lab, Adc Fam Pob I Attending Clinician Unavailab Hipolito Juarez PA-C Attending Clinician Margot Renee MD Attending Clinician [phone] MARGOT RENEE Attending Clinician Unavailable CAROLINA WALLIS Admitting Clinician Unavail able ABIGAIL BARTON Admitting Clinician Unavailable Payers Payer Name Policy Type Policy Number Effective Date Expirati on Date Source 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 94 [id number] 2024 00:00:00 [facility] [id number] 2024 00:00:00 [facility] [place] [facility] [id number] 2023 00:00:00 Problems Condition Name Condition Details Condition Category Status Onset Date Resolution Date Last Treatment Date Treating Clinician Comments Source Pain pelvic Pain pelvic Disease Active 2021-06 0- 00:00: 00 [facility] Abdominal bloating with cramps Abdominal bloating with cramps Disease Active 2021-06 0-12 00:00: 00 [facility] SAB (spontaneo us ) SAB (spontaneo us ) Disease Active 7-14 00:00: 00 [facility] History of depression History of depression Disease Active 7-07 00:00: 00 [facility] Anxiety Anxiety Disease Active -18 00:00: 00 [facility] Elevated blood pressure reading without diagnosis of hypertensi on Elevated blood pressure reading without diagnosis of hypertensi on Disease Active -18 00:00: 00 [facility] History of breast augmentati on History of breast augmentati on Disease Active -18 00:00: 00 [facility] History of perforated ear drum History of perforated ear drum Disease Active 10-31 00:00: 00 [facility] Human papilloma virus (HPV) infection Human papilloma virus (HPV) infection Disease Active 10-31 00:00: 00 [facility] Major depressive disorder, single episode, unspecifie d Major depressive disorder, single episode, unspecifie d Disease Active 10-31 00:00: 00 [facility] Pain in right foot Pain in right foot Disease Active 10-31 00:00: 00 [facility] Palpitatio ns Palpitatio ns Disease Active 10-31 00:00: 00 [facility] Posttrauma tic stress disorder Posttrauma tic stress disorder Disease Active 10-31 00:00: 00 [facility] Ventral hernia without obstructio n or gangrene Ventral hernia without obstructio n or gangrene Disease Active 10-31 00:00: 00 [facility] Ventral hernia without obstructio n or gangrene Ventral hernia without obstructio n or gangrene Problem Active [facility] Palpitatio ns Palpitatio ns Diagnosis Active [facility] Elevated BP without diagnosis of hypertensi on Elevated BP without diagnosis of hypertensi on Problem Active [facility] Anxiety Anxiety Problem Active [facility] Right foot pain Right foot pain Problem Active [facility] Depression Depression Problem Active [facility] High risk HPV infection High risk HPV infection Problem Active [facility] History of perforated ear drum History of perforated ear drum Problem Active [facility] Encounter for general adult medical examinatio n without abnormal findings Encounter for general adult medical examinatio n without abnormal findings Diagnosis Active [facility] PTSD (post-trau matic stress disorder) PTSD (post-trau matic stress disorder) Problem Active [facility] H/O breast augmentati on H/O breast augmentati on Problem Active [facility] Allergies, Adverse Reactions, Alerts Allergy Name Allergy Type Status Severity Reaction(s) Onset Date Inactive Date Treating Clinician Comments Source Sulfamet hoxazole Propensi ty to adverse reaction s Active Swelling 09-06 00:00: 00 [facility] SULFAMET HOXAZOLE DRUG INGREDI Active Med Swelling 09-06 00:00: 00 [facility] Banana Drug Allergy Active Unknown - See comments 01-07 00:00: 00 [facility] Latex Drug Allergy Active Unknown - See comments 01-07 00:00: 00 [facility] Sulfamet hoxazole -Trimeth oprim Drug Allergy Active Unknown - See comments 01-07 00:00: 00 [facility] BANANA DRUG INGREDI Active Unknown-Cmnt 01-07 00:00: 00 [facility] LATEX DRUG INGREDI Active Unknown-Cmnt 01-07 00:00: 00 [facility] SULFAMET HOXAZOLE -TRIMETH OPRIM DRUG Active Unknown-Cmnt 01-07 00:00: 00 [facility] Banana Propensi ty to adverse reaction s Active Other 01-07 00:00: 00 Rita Lim - Externa l Sulfamet hoxazole W-Trimet hoprim Propensi ty to adverse reaction s Active Other 08-26 00:00: 00 Rita Lim - Externa l Latex Propensi ty to adverse reaction s Active Other 08-26 00:00: 00 Rita Lim - Externa l Latex Adverse Reaction Active Info Not Available [facility] Banana (Diagnos tic) Adverse Reaction Active Info Not Available [facility] Bactrim Adverse Reaction Active Info Not Available [facility] Social History Social Habit Start Date Stop Date Quantity Comments Source ASSERTION Not Rita Lim - External Sexual orientation Chris Lim - External History SDOH Alcohol Frequency [facility] History SDOH Alcohol Std Drinks [facility] History SDOH Alcohol Binge [facility] Tobacco use and exposure 2024-09-14 00:00:00 2024-09-14 00:00:00 Smokeless tobacco non-user Rita Lim - External History of Social function 2024-09-14 00:00:00 2024-09-14 00:00:00 Rita Lim - External Sex 2024-09-09 14:05:53 2024-09-09 14:05:53 Female (finding) Rita Lim - External Alcohol intake 2023-10-02 00:00:00 2023-10-02 00:00:00 Current drinker of alcohol (finding) [facility] Alcoholic beverage intake 2023-10-02 00:00:00 2023-10-02 00:00:00 Current drinker of alcohol (finding) [facility] Exposure to SARS-CoV-2 (event) 2022-08-25 00:00:00 2022-09-04 15:04:00 Not sure [facility] Alcohol Comment 2022-03-28 00:00:00 2022-03-28 00:00:00 rare [facility] Sex assigned at 1980 00:00:00 1980 00:00:00 Rita Lim - External Smoking Status Start Date Stop Date Source Never smoked tobacco Rita Lim - External Medications Ordered Medication Name Filled Medication Name Start Date Stop Date Current Medication? Ordering Clinician Indication Dosage Frequency Signature (SIG) Comments Components Source Savona-3 Fatty Acids (Fish Oil) 1000 MG oral Capsule 09-14 14:20: 53 Yes 1000mg 1 capsule (1,000 mg total). Rita encarnacion Coenzyme Q10 10 MG oral Capsule 09-14 14:20: 53 Yes Take by mouth. Rita encarnacion Probiotic, Lactobacill us, oral Capsule 09-14 14:20: 53 Yes See Admin Instructio ns. Rita encarnacion Multiple Vitamins-Mi nerals (Multi For Her) oral Capsule 09-14 14:20: 53 Yes Rita encarnacion Ascorbic Acid 500 MG oral Capsule 09-14 14:20: 53 Yes Take by mouth. Rita encarnacion Magnesium 100 MG oral Capsule 09-14 14:20: 53 Yes Take by mouth. Rita encarnacion Meclizine HCl 12.5 MG oral Tablet 09-14 00:00: 00 Yes [id number] 12.5mg [id number] 3D Take 1 tablet (12.5 mg total) by mouth 3 times daily as needed. Rita encarnacion Sertraline HCl 25 MG oral Tablet 09-14 00:00: 00 Yes [id number] 25mg QD Take 1 tablet (25 mg total) by mouth daily. Rita encarnacion Lactobacill us acidophilus (PROBIOTIC ORAL) 2021-06 09:56: 04 Yes Take by mouth. [facility] Coenzyme Q10 10 mg Cap 2021-06 09:56: 04 Yes Take by mouth. [facility] MAGNESIUM CITRATE ORAL 12-20 10:43: 52 Yes Take by mouth. [facility] Coenzyme Q10 10 mg Cap 12-20 10:43: 52 Yes Take by mouth. [facility] BusPIRone HCl BusPIRone HCl 09-09 00:00: 00 Yes Franklin Arriaza 1 tablet [facility] Baby Aspirin Baby Aspirin Yes Franklin Arriaza not defined [facility] Fish Oil Fish Oil Yes Franklin Arriaza 1 capsule [facility] Smita Smita Yes Franklin Arriaza as directed [facility] Garlic Garlic Yes Franklin Arriaza as directed [facility] Vitamin B Complex Vitamin B Complex Yes Franklin Arriaza as directed [facility] Multivitami n Adult Multivitami n Adult Yes Franklin Arriaza as directed [facility] Probiotic Probiotic Yes Franklin Arriaza as directed [facility] Immunizations Ordered Immunization Name Filled Immunization Name Date Status Comments Source Influenza Virus Vaccine Quad .5 mL IM 6+ MO (FLUZONE/FLULAVAL/F LUARIX) 2023-10-16 08:20:00 Completed [facility] Influenza Virus Vaccine Quad .5 mL IM 6+ MO (FLUZONE/FLULAVAL/F LUARIX) 2023-10-10 00:00:00 Completed [facility] Influenza Virus Vaccine Quad .5 mL IM 6+ MO (FLUZONE/FLULAVAL/F LUARIX) 2023-10-08 09:00:00 Completed [facility] Influenza Virus Vaccine Quad .5 mL IM 6+ MO (FLUZONE/FLULAVAL/F LUARIX) 2023-10-08 00:00:00 Completed [facility] Influenza Virus Vaccine Quad .5 mL IM 6+ MO (FLUZONE/FLULAVAL/F LUARIX) 2023-10-02 10:00:00 Completed [facility] Influenza Virus Vaccine Quad .5 mL IM 6+ MO (FLUZONE/FLULAVAL/F LUARIX) 2023-09-25 00:00:00 Completed [facility] Influenza Virus Vaccine Quad .5 mL IM 6+ MO (FLUZONE/FLULAVAL/F LUARIX) 2023-09-24 00:00:00 Completed [facility] Influenza Virus Vaccine Quad .5 mL IM 6+ MO (FLUZONE/FLULAVAL/F LUARIX) 2023-08-06 07:10:32 Completed [facility] Influenza Virus Vaccine Quad .5 mL IM 6+ MO (FLUZONE/FLULAVAL/F LUARIX) 2023-05-28 15:15:00 Completed [facility] Influenza Virus Vaccine Quad .5 mL IM 6+ MO (FLUZONE/FLULAVAL/F LUARIX) 2023-04-09 09:30:00 Completed [facility] Influenza Virus Vaccine Quad .5 mL IM 6+ MO (FLUZONE/FLULAVAL/F LUARIX) 2023-04-09 00:00:00 Completed [facility] Influenza Virus Vaccine, No Preserv, age 6 months and up Unknown Completed Rita Lim - External Vital Signs Vital Name Observation Time Observation Value Comments S ource Systolic blood pressure 2024-09-14 19:11:00 112 mm[Hg] Rita Bowman ld - External Diastolic blood pressure 2024-09-14 19:11:00 72 mm[Hg] Rita Amayao ld - External Heart rate 2024-09-14 19:11:00 68 /min Neo mike Seybold - External Body temperature 2024-09-14 19:11:00 36.72 Lucy Rita Suybold - External Respiratory rate 2024-09-14 19:11:00 20 /min Rita Amayaold - External Body height 2024-09-14 19:11:00 172.7 cm Polina ey Seybold - External Body weight 2024-09-14 19:11:00 58.117 kg Polina ey Seybold - External BMI 2024-09-14 19:11:00 19.48 kg/m2 Polina ey ybold - External Systolic blood pressure 2023-10-02 15:22:00 118 [facility] 2023-10-02 15:22:00 69 mm[facility]Hg[facility] Heart rate 2023-10-02 15:22:00 68 [facility] Body temperature 2023-10-02 15:22:00 37 Lucy [facility] Respiratory rate 2023-10-02 15:22:00 18 /min [facility] Body height 2023-10-02 15:22:00 172.7 cm [facility] Body weight 2023-10-02 15:22:00 59.104 kg [facility] BMI 2023-10-02 15:22:00 19.81 kg/m2 [facility] Systolic blood pressure 2023-05-28 21:39:00 124 mm[facility]Hg[facility] Diastolic blood pressure 2023-05-28 21:39:00 75 mm[Hg[facility] Heart rate 2023-05-28 21:39:00 68 /min [facility] Body temperature 2023-05-28 21:39:00 36.17 Lucy [facility] Respiratory rate 2023-05-28 21:39:00 18 /min [facility] Body height 2023-05-28 21:39:00 172.7 cm [facility] 2023-05-28 21:39:00 60.419 [facility] BMI 2023-05-28 21:39:00 20.25 kg/m2 [facility] Body temperature 2023-04-09 14:39:00 36.11 Lucy [facility] Systolic blood pressure 2022-09-04 20:22:00 123 mm[facility]Hg[facility] Diastolic blood pressure 2022-09-04 20:22:00 74 mm[Hg[facility] Heart rate 2022-09-04 20:22:00 104 /min [facility] Body temperature 2022-09-04 20:22:00 36.72 Lucy [facility] Respiratory rate 2022-09-04 20:22:00 16 /min [facility] Body height 2022-09-04 20:22:00 172.7 cm [facility] weight 2022-09-04 20:22:00 62.143 kg [facility] BMI 2022-09-04 20:22:00 20.83 kg/m2 [facility] Systolic blood pressure 2022-03-28 14:54:00 112 mm[Hg[facility] Diastolic blood pressure 2022-03-28 14:54:00 73 mm[Hg[facility] Heart rate 2022-03-28 14:54:00 63 /min [facility] 2022-03-28 14:54:00 36.83 Lucy [facility] Respiratory rate 2022-03-28 14:54:00 18 /min [facility] Body height 2022-03-28 14:54:00 172.7 cm [facility] weight 2022-03-28 14:54:00 60.782 kg [facility] BMI 2022-03-28 14:54:00 20.37 kg/m2 [facility] Systolic blood pressure 2022-03-27 16:55:00 111 mm[Hg[facility] Diastolic blood pressure 2022-03-27 16:55:00 70 mm[Hg] [place] [facility] Heart rate 2022-03-27 16:55:00 57 /min [facility] Body temperature 2022-03-27 16:55:00 36.78 Lucy [facility] Respiratory rate 2022-03-27 16:55:00 18 /min [facility] Body height 2022-03-27 16:55:00 172.7 cm [facility] Body weight 2022-03-27 16:55:00 60.782 kg [facility] BMI 2022-03-27 16:55:00 20.37 kg/m2 [facility] Procedures Procedure Date / Time Performed Performing Clinician Source BI SCREENING TOMOSYNTHESIS BILATERAL 2023-10-16 13:59:22 Carolina Wallis [facility] US PELVIS COMPLETE WITH TRANSVAGINAL 2023-10-08 15:08:14 Carolina Wallis [facility] THYROID STIMULATING HORMONE 2023-10-02 16:09:00 Carolina Wallis [facility] LIPID PANEL (52131)(TOTAL CHOLESTEROL, TRIGLYCERIDES, HDL) 2023-10-02 16:09:00 Carolina Wallis [facility] CBC WITH DIFF 2023-10-02 16:09:00 Carolina Wallis [facility] GC & CHLAMYDIA AMPLIFIED ASSAY 2023-05-28 22:41:00 Carolina Wallis [facility] HIGH RISK HPV-THIN PREP 2023-05-28 22:41:00 Carolina Wallis [facility] TRICHOMONAS AMPLIFIED ASSAY 2023-05-28 22:41:00 Carolina Wallis [facility] PAP SMEAR-LIQUID BASED-CP 2023-05-28 22:41:00 Carolina Wallis [facility] CONSENT/REFUSAL FOR DIAGNOSIS AND TREATMENT 2023-04-09 14:33:13 Doctor Unassigned, [place] [facility] ASSIGNMENT OF BENEFITS 2023-04-09 14:32:59 Docto r Unassigned, [place] [facility] "RWSP MARTINE ONLY" FLU VACC(), 6+ MONTHS, IM, QUAD (FLUZONE/FLULAVAL/FLUARI X) 2023-04-09 14:30:48 Carolina Wallis [facility] PATIENT FINANCIAL POLICY 2022-09-04 20:05:53 Doctor Unassigned, [place] [facility] POCT URINALYSIS W/O SPECIFIC GRAVITY 2022-09-04 00:00:00 Ashley Poon [facility] TOTAL BETA HCG ASSAY 2022-02-07 16:14:00 Abigail Barton [facility] STEREO EQUIPMENT 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 CLINIC ULTRASOUND 2021-12-27 05:01:00 Doc tor Unassigned, [place] [facility] Encounters Start Date/Time End Date/Time Encounter Type Admission Type Attending [facility] Care Facility Care Department Encounter ID Source 2024-09-28 11:30:00 2024-09-28 11:30:00 Outpatient CHRISTINA RAMOS [id number] [facility] 2024-09-16 10:30:00 2024-09-16 10:30:00 Outpatient CHRISTINA RAMOS [id number] [facility] 2024-09-14 13:30:00 2024-09-14 13:30:00 Outpatient CHRISTINA RAMOS [id number] [facility] 2024-09-14 13:30:00 2024-09-14 13:30:00 Outpatient CRHISTINA RAMOS [id number] [facility] 2024-06-02 09:00:00 2024-06-02 09:00:00 Outpatient CAROLINA ANGUIANO [facility] [id number] [facility] 2023-12-02 08:15:00 2023-12-02 08:15:00 Outpatient CAROLINA ANGUIANO [facility] [id number] [facility] 2023-10-08 00:00:00 2023-11-08 18:04:19 Patient Secure Msg Carolina Wallis [facility] STEREO EQUIPMENT SALESPERSON [facility] [id number] 350.1.13.10 4.2.7.2.686 [id number] [facility] 2023-10-16 08:22:18 2023-10-16 23:59:00 Outpatient R CAROLINA WALLIS [facility] [id number] [facility] 2023-10-16 08:20:00 2023-10-16 23:59:00 Hospital Encounter Carolina Wallis [facility] [id number] 350.1.13.10 4.2.7.2.686 [id number] [facility] 2023-10-10 00:00:00 2023-10-10 00:00:00 Telephone Carolina Wallis [facility] [employer] EQUIPMENT SALESPERSON [facility] CHILD [facility] [id number] 350.1.13.10 4.2.7.2.686 [id number] [facility] 2023-10-08 09:24:17 2023-10-08 23:59:00 Outpatient R CAROLINA WALLIS [facility] [id number] [facility] 2023-10-08 09:00:00 2023-10-08 23:59:00 Hospital Encounter Carolina Wallis [facility] [id number] 350.1.13.10 4.2.7.2.686 [id number] [facility] 2023-10-02 10:00:00 2023-10-02 11:12:05 Outpatient R CAROLINA WALLIS [facility] [id number] [facility] 2023-10-02 10:00:00 2023-10-02 11:12:05 Office Visit Carolina Wallis [facility] [employer] EQUIPMENT SALESPERSON [facility] & CHILD [facility] [id number] 350.1.13.10 4.2.7.2.686 [id number] [facility] 2023-09-26 08:00:00 2023-09-26 08:00:00 Outpatient MERCEDES GEORGE [facility] [id number] [facility] 2023-09-25 00:00:00 2023-09-25 00:00:00 Telephone Carolina Wallis [facility] [employer] EQUIPMENT SALESPERSON [facility] & CHILD [facility] 1..840.114 350.1.13.10 4.2.7.2.686 [id number] [facility] 2023-09-24 00:00:00 2023-09-24 00:00:00 Telephone Carolina Wallis [facility] EQUIPMENT SAL[facility]ERSON [facility] 1..840.114 350.1.13.10 4.2.7.2.686 [id number] [facility] 2023-09-17 11:00:00 2023-09-17 11:00:00 Outpatient MERCEDES GEORGE [facility] [id number] [facility] 2023-09-16 08:00:00 2023-09-16 08:00:00 Outpatient MERCEDES GEORGE [facility] [id number] [facility] 2023-08-06 07:10:32 2023-08-06 23:59:00 Outpatient R CAROLINA WALLIS [facility] [id number] [facility] 2023-08-06 07:10:32 2023-08-06 23:59:00 Hospital Encounter Carolina Wallis [facility] ..840.114 350.1.13.10 4.2.7.2.686 [id number] [facility] 2023-05-28 15:15:00 2023-05-28 16:33:02 Outpatient R CAROLINA WALLIS [facility] [id number] [facility] 2023-05-28 15:15:00 2023-05-28 16:33:02 Office Visit Carolina Wallis [facility] [employer] EQUIPMENT SALESPERSON [facility]ILD [facility] [id number] 350.1.13.10 4.2.7.2.686 [id number] [facility] 2023-05-27 13:30:00 2023-05-27 13:30:00 Outpatient R CAROLINA WALLIS [facility] [id number] [facility] 2023-05-21 13:30:00 2023-05-21 13:30:00 Outpatient R MERCEDES LEE [facility] [id number] [facility] 2023-04-09 09:30:00 2023-04-09 09:39:59 Outpatient R CAROLINA WALLIS [facility] [id number] [facility] 2023-04-09 09:30:00 2023-04-09 09:39:59 Nurse Visit Visit, Ang-Rmchp Nurse Carolina Wallis [facility] [employer] EQUIPMENT SALESPERSON [facility]ILD [facility] 1.84.114 350.1.13.10 4.2.7.2.686 [id number] [facility] 2023-04-09 00:00:00 2023-04-09 00:00:00 Orders Only Doctor Unassigned, [place] [facility] 1..114 350.1.13.10 4.2.7.2.686 [id number] [facility] 2022-09-06 00:00:00 2022-09-06 00:00:00 Ashley Vera [facility] 1..114 350.1.13.10 4.2.7.2.686 [id number] [facility] 2022-09-04 15:00:00 2022-09-04 15:42:14 Outpatient R ASHLEY POON [facility] [id number] [facility] 2022-09-04 15:00:00 2022-09-04 15:42:14 Office Visit Ashley Poon [facility] [id number] 350.1.13.10 4.2.7.2.686 [id number] [facility] 2022-09-04 00:00:00 2022-09-04 00:00:00 Orders Only Doctor Unassigned, [place] [facility] [id number] 350.1.13.10 4.2.7.2.686 [id number] [facility] 2022-04-03 11:20:48 2022-04-03 23:59:00 Outpatient R ABIGAIL BARTON [facility] [id number] [facility] 2022-04-03 11:00:00 2022-04-03 23:59:00 Hospital Encounter Abigail Barton [facility] [id number] 350.1.13.10 4.2.7.2.686 [id number] [facility] 2022-03-28 09:30:00 2022-03-28 10:13:18 Outpatient R ELIZABETH ALVAREZ CHERYAL [facility] [id number] [facility] 2022-03-28 09:30:00 2022-03-28 10:13:18 Office Visit Elizabeth Alvarez [facility] 1.2840.114 350.1.13.10 4.2.7.2.686 [id number] [facility] 2022-03-27 11:30:00 2022-03-27 12:12:36 Outpatient R ELIZABETH ALVAREZ CHERYAL [facility] [id number] [facility] 2022-03-27 11:30:00 2022-03-27 12:12:36 Office Visit Elizabeth Alvarez [facility] 1..840.114 350.1.13.10 4.2.7.2.686 [id number] [facility] 2022-02-20 13:00:00 2022-02-20 13:00:00 [facility] [id number] 2022-02-14 00:00:00 2022-02-14 00:00:00 Outpatient R ABIGAIL BARTON [facility] [id number] [facility] 2022-02-14 00:00:00 2022-02-14 00:00:00 Telephone Mick Abigail [facility] 1..840.114 350.1.13.10 4.2.7.2.686 [id number] 134 [id number] [facility] 2022-02-13 09:15:00 2022-02-13 09:30:00 Terrazzo Polisher Helper Visit [facility] 1..840.114 350.1.13.10 4.2.7.2.686 [id number] [facility] 2022-02-13 09:15:00 2022-02-13 09:15:00 Outpatient R ABIGAIL BARTON [facility] [id number] [facility] 2022-02-07 11:00:00 2022-02-07 11:19:27 Terrazzo Polisher Helper Visit Lab, [facility] 1..840.114 350.1.13.10 4.2.7.2.686 [id number] [facility] 2022-02-07 11:00:00 2022-02-07 11:00:00 Outpatient R MICK ABIGAIL [facility] [id number] [facility] 2022-02-06 00:00:00 2022-02-06 00:00:00 Telephone Abigail Barton [facility] 1.2.840.114 350.1.13.10 4.2.7.2.686 [id number] 134 [id number] [facility] 2022-01-30 11:00:00 2022-01-30 11:35:50 Terrazzo Polisher Helper Visit Lab, Ang - Db Mick [facility] MEDICAL OFFICE BUILDING 1..840.114 350.1.13.10 4.2.7.2.686 [id number] [facility] 2022-01-30 11:00:00 2022-01-30 11:00:00 Outpatient R ABIGAIL BARTON [facility] [id number] [facility] 2022-01-30 11:00:00 2022-01-30 11:00:00 Outpatient R ABIGAIL BARTON [facility] [id number] [facility] 2022-01-24 00:00:00 2022-01-24 00:00:00 Case Management Mick [facility] 1..840.114 350.1.13.10 4.2.7.2.686 [id number] 134 [id number] [facility] 2022-01-22 12:00:00 2022-01-22 12:15:00 Terrazzo Polisher Helper Visit Lab, Ang - Db Mick [facility] MEDICAL OFFICE BUILDING 1..840.114 350.1.13.10 4.2.7.2.686 [id number] [facility] 2022-01-22 12:00:00 2022-01-22 12:00:00 Outpatient R MICK ABIGAIL [facility] [id number] [facility] 2022-01-22 11:00:00 2022-01-22 11:00:00 Outpatient R [facility] [id number] [facility] 2022-01-15 12:00:00 2022-01-15 12:15:00 Terrazzo Polisher Helper Visit Lab, Ang - Db Abigail Barton [facility] MED[facility] OFF[facility] BUILDING 1..840.114 350.1.13.10 4.2.7.2.686 [id number] [facility] 2022-01-15 12:00:00 2022-01-15 12:00:00 Outpatient R ABIGAIL BARTON [facility] [id number] [facility] 2022-01-15 11:00:00 2022-01-15 11:00:00 Outpatient R ABIGAIL BARTON [facility] [id number] [facility] 2022-01-15 00:00:00 2022-01-15 00:00:00 Case Management [facility] 1..840.114 350.1.13.10 4.2.7.2.686 [id number] 134 [id number] [facility] 2022-01-08 10:00:00 2022-01-08 10:00:00 Outpatient R [facility] [id number] [facility] 2022-01-03 10:00:00 2022-01-03 10:32:12 Outpatient R ABIGAIL BARTON [facility] [id number] [facility] 2022-01-03 10:00:00 2022-01-03 10:32:12 Routine Visit Abigail Barton [facility] 1.840.114 350.1.13.10 4.2.7.2.686 [id number] 134 [id number] [facility] 2021-12-27 09:15:00 2021-12-27 10:19:21 Outpatient R ABIGAIL BARTON [facility] [id number] [facility] 2021-12-27 09:15:00 2021-12-27 10:19:21 Routine Visit Abigail Barton [facility] 1.20.114 350.1.13.10 4.2.7.2.686 [id number] [facility] 2021-12-27 00:00:00 2021-12-27 00:00:00 Orders Only Doctor Unassigned, [facility] 1.20.114 350.1.13.10 4.2.7.2.686 [id number] [facility] 2021-12-25 10:00:00 2021-12-25 10:00:00 Outpatient R [facility] [id number] [facility] 2021-12-21 00:00:00 2021-12-21 00:00:00 Telephone Mick Abigail [facility] 1.2.114 350.1.13.10 4.2.7.2.686 [id number] 134 [id number] [facility] 2021-12-20 10:15:00 2021-12-20 11:17:26 Outpatient R ABIGAIL BARTON [facility] [id number] [facility] 2021-12-20 10:15:00 2021-12-20 11:17:26 Routine Visit Abigail Barton [facility] 1.2.114 350.1.13.10 4.2.7.2.686 [id number] 134 [id number] [facility] 2021-12-20 10:15:00 2021-12-20 10:15:00 Outpatient R JASON BARTONN [facility] [id number] [facility] 2021-12-14 00:00:00 2021-12-14 00:00:00 Telephone Mick Abigail [facility] 1.0.114 350.1.13.10 4.2.7.2.686 [id number] 134 [id number] [facility] 2021-12-13 11:15:00 2021-12-13 11:30:00 Terrazzo Polisher Helper Visit Lab, Freddy Barton [facility] MED[facility] OFFICE BUILDING 1..840.114 350.1.13.10 4.2.7.2.686 [id number] [facility] 2021-12-13 11:15:00 2021-12-13 11:15:00 Outpatient R [facility] [id number] [facility] 2021-12-13 11:15:00 2021-12-13 11:15:00 Outpatient R ABIGAIL BARTON [facility] [id number] [facility] 2021-12-13 00:00:00 2021-12-13 00:00:00 Orders Only Doctor Unassigned, [facility] 1.114 350.1.13.10 4.2.7.2.686 [id number] [facility] 2021-12-11 11:15:00 2021-12-11 11:30:00 Terrazzo Polisher Helper Visit Lab, Freddy Barton [facility] MEDICAL OFFICE BUILDING 1.840.114 350.1.13.10 4.2.7.2.686 [id number] [facility] 2021-12-11 09:30:00 2021-12-11 10:41:46 Outpatient R MICK ABIGAIL [facility] [id number] [facility] 2021-12-11 09:30:00 2021-12-11 10:41:46 Initial Visit Abigail Barton [facility] 1..114 350.1.13.10 4.2.7.2.686 [id number] 134 [id number] [facility] 2021-12-11 00:00:00 2021-12-11 00:00:00 Telephone Abigail Barton [facility] 1..114 350.1.13.10 4.2.7.2.686 [id number] 134 [id number] [facility] 2021-12-10 00:00:00 2021-12-10 00:00:00 Telephone Samantha Gayle [facility] BUILDING 1.84.114 350.1.13.10 4.2.7.2.686 [id number] [facility] 2021-11-05 13:00:00 2021-11-05 13:00:00 Outpatient Jonathan [facility] [id number] [facility] 2021-10-03 15:00:00 2021-10-03 15:00:00 Outpatient Jonathan G[facility] [id number] [facility] 2021-07-01 00:00:00 2021-07-01 00:00:00 Telephone Kalyani Russo [facility] 1.84.114 350.1.13.10 4.2.7.2.686 [id number] [facility] 2021-06-30 16:45:00 2021-06-30 17:00:00 Laboratory Only Only, Ang Db Test Matthew Kristal [facility] 1.840.114 350.1.13.10 4.2.7.2.686 [id number] [facility] 2021-06-30 16:45:00 2021-06-30 16:45:00 Outpatient Jonathan KEYS KRISTAL [facility] [id number] [facility] 2021-02-09 13:11:33 2021-02-09 13:26:33 Terrazzo Polisher Helper Visit 1, Adc Lab Basilio Isbell [facility] 1.840.114 350.1.13.10 4.2.7.2.686 [id number] [facility] 2021-02-09 12:30:00 2021-02-09 12:30:00 Outpatient R [facility] [id number] [facility] 2020-10-10 13:00:00 2020-10-10 23:59:00 Hospital Encounter Samantha Gayle [facility] 1.2840.114 350.1.13.10 4.2.7.2.686 [id number] [facility] 2020-10-10 00:00:00 2020-10-10 00:00:00 Outpatient R [facility] [id number] [facility] 2020-10-10 00:00:00 2020-10-10 00:00:00 Orders Only Doctor Unassigned, [facility] 1.2840.114 350.1.13.10 4.2.7.2.686 [id number] [facility] 2020-10-05 00:00:00 2020-10-05 00:00:00 Outpatient R SAMANTHA GAYLE [facility] [id number] [facility] 2020-09-21 00:00:00 2020-09-21 00:00:00 Telephone LisandroSamantha pelaez [facility] 1.840.114 350.1.13.10 4.2.7.2.686 [id number] [facility] 2020-09-20 11:13:47 2020-09-20 12:12:32 Office Visit IrwinMelissacy [facility] 1.2840.114 350.1.13.10 4.2.7.2.686 [id number] [facility] 2020-09-20 11:13:47 2020-09-20 12:12:32 Office Visit Samantha Gayle [facility] Building 1.84.114 350.1.13.10 4.2.7.2.686 [id number] 2020-09-20 10:45:00 2020-09-20 10:45:00 [facility] [id number] [facility] 2020-09-20 00:00:00 2020-09-20 00:00:00 Orders Only Samantha Gayle [facility] 1..114 350.1.13.10 4.2.7.2.686 [id number] [facility] 2020 00:00:00 2020 00:00:00 [facility] 1.84.114 350.1.13.10 4.2.7.2.686 [id number] [facility] 2020-09-11 14:30:00 2020-09-11 14:30:00 Outpatient R [facility] [id number] [facility] 2020-09-08 00:00:00 2020-09-08 00:00:00 Telephone Marisa Chua [facility] Building One .84.114 350.1.13.10 4.2.7.2.686 [id number] [facility] 2020-09-07 17:50:17 2020-09-07 18:10:17 Laboratory Only Lab, Ad[facility] 1..114 350.1.13.10 4.2.7.2.686 [id number] [facility] 2020-09-07 17:20:00 2020-09-07 17:20:00 Outpatient R [facility] [id number] [facility] 2020-09-07 15:40:00 2020-09-07 15:40:00 Outpatient R [facility] [id number] [facility] 2020-09-07 00:00:00 2020-09-07 00:00:00 Letter (Out) Doctor Unassigned, [facility] 1.2840.114 350.1.13.10 4.2.7.2.686 [id number] [facility] 2020-09-07 00:00:00 2020-09-07 00:00:00 Letter (Out) Doctor Unassigned, [facility] 1.2840.114 350.1.13.10 4.2.7.2.686 [id number] [facility] 2019-12-16 00:00:00 2019-12-16 00:00:00 Orders Only Doctor Unassigned, [facility] 1.2840.114 350.1.13.10 4.2.7.2.686 [id number] [facility] 2019-12-11 00:00:00 2019-12-11 00:00:00 Telephone [facility] 1.2840.114 350.1.13.10 4.2.7.2.686 [id number] 134 [id number] [facility] 2019-11-22 00:00:00 2019-11-22 00:00:00 [facility] 1.2840.114 350.1.13.10 4.2.7.2.686 [id number] 134 [id number] [facility] 2019-11-12 00:00:00 2019-11-12 00:00:00 [facility] 1.2840.114 350.1.13.10 4.2.7.2.686 [id number] 134 [id number] [facility] 2019-11-11 14:00:00 2019-11-11 14:00:00 Outpatient R MARGOT RENEE [facility] [id number] [facility] 2019-11-11 00:00:00 2019-11-11 00:00:00 Telephone Margot Renee [facility] Professio nal Building 1.2.840.114 350.1.13.10 4.2.7.2.686 [id number] 134 [id number] [facility] 2019-09-20 00:00:00 2019-09-20 00:00:00 Telephone Margot Renee [facility] nal Building 1.2840.114 350.1.13.10 4.2.7.2.686 [id number] [facility] 2019-09-12 00:00:00 2019-09-12 00:00:00 Telephone Margot Renee [facility] Building 1.2840.114 350.1.13.10 4.2.7.2.686 [id number] 134 [id number] [facility] 2019-09-09 13:36:09 2019-09-09 14:24:08 Office Visit Margot Renee [facility] Building 1.2840.114 350.1.13.10 4.2.7.2.686 [id number] [facility] 2019-09-09 13:30:00 2019-09-09 13:30:00 Outpatient R MARGOT RENEE [facility] [id number] [facility] 2019-09-09 00:00:00 2019-09-09 00:00:00 Orders Only Doctor Unassigned, [facility] 1.2840.114 350.1.13.10 4.2.7.2.686 [id number] [facility] 2019-09-08 00:00:00 2019-09-08 00:00:00 Telephone Samantha Gayle [facility] 1.2.840.114 350.1.13.10 4.2.7.2.686 [id number] [facility] 2019-09-08 00:00:00 2019-09-08 00:00:00 Telephone Samantha Gayle [facility] Building One 1.2.840.114 350.1.13.10 4.2.7.2.686 [id number] [facility] 2019-09-08 00:00:00 2019-09-08 00:00:00 Telephone Samantha Gayle [facility] 1.2.840.114 350.1.13.10 4.2.7.2.686 [id number] 134 [id number] [facility] 2019-09-07 08:17:41 2019-09-07 12:50:47 Telemedici ne Visit Irwin [facility] Building 1.2.840.114 350.1.13.10 4.2.7.2.686 [id number] [facility] 2019-01-07 14:45:00 2019-01-07 14:45:00 Outpatient [facility] [id number] [facility] 2018-09-28 10:00:00 2018-09-28 10:00:00 Outpatient [facility] [id number] [facility] 2018-09-09 10:15:00 2018-09-09 10:15:00 Outpatient [facility] [id number] [facility] 2018-08-27 16:49:00 2018-08-27 16:49:00 Outpatient [facility] [id number] [facility] 2018-08-26 10:30:00 2018-08-26 10:30:00 Outpatient [facility] [id number] [facility] Results Test Description Test Time Test Comments [...] the right ovary. CONCLUSIONS: Essentially normal study. [facility]O SPECIFIC [id number] 20:19:00* Test Item Value Reference Range Interpretation [...] = 3257) negative Negative - Negati ve [facility], [facility]ANTIT[facility], [id number] 21:34:18* Test Item Value Reference Range Interpretation Comme nts BETA HCG (test code = [id number]) See_Comment [Automated Streamup] The system which generated this result transmitted reference range: Non- female and male patients: <5 mIU/mL. The reference range was not used to interpret this result as normal/abnormal. GREG (test code = GREG) Gestational Age ?Range (mIU/mL) 1-10 ?Weeks ?[id number] Weeks ?[id number] Weeks ?8813-31555555-72 Weeks ?[id number] Biotin has been reported to cause a negative bias, interpret results relative to patient's use of biotin. [facility] Notes Date/Time Note Provider Source 2024-09-14 14:21:21 Chief Complaint Patient presents with Referral Needs referral to ENT. Wants to discuss anxiety medications Gina Busch LVN [facility] 2023-10-10 15:47:26 Called pt, discussed results with patient. Pt verbalized understanding. Becky Braga RN 10/10/23 3:48 PM [facility] 2023-10-10 15:24:24 Please notify the patient [...] normal study. SHANA Ordoñez 10/10/2023 3:24 PM PATIENT CARE MANAGER-[facility]OM[facility] MID[facility] PROVIDER [facility] 2023-09-25 16:34:07 Called patient and scheduled appointment for 10-02-2023. Jennifer Alejandro [facility] 2023-09-25 16:24:54 Routed to PSS to reschedule when patient is out of 10 day quarantine. Pt notified and will have pss call pt. Pt verbalized understanding. Becky Braga RN 09/25/23 4:25 PM [facility] 2023-09-24 11:24:43 Pt called having irregular periods. Pt reports under stress and recently diagnosed with covid. Pt denies any heavy bleeding, cramps, and or pain. Pt educated on irregular cycles and causes, pt to call back when out of quarantine if desires appt. Strict er warnings given. Pt verbalized understanding. Becky Braga RN 09/24/23 11:25 AM [facility] 2023-09-24 09:48:31 Pt returning missed call from clinic, requesting call back. Please F/u Xavi Braga [facility] 2023-09-24 09:25:46 Attempted to call patient, no answer, vm full. [facility] 2023-09-24 09:20:53 Copied from [facility] #[id number]. Topic: Clinical - Medical Advice >> Sep 24, 2023 9:18 AM Patient Template Cutter wrote: Pt is requesting call back, states had cycle it was late but normal, now she tested positive for covid and has started cycle again. Wants to know if this is something that can happen? Please call [phone] (home) INOT AKIKO Rebollar [facility]
[2024-09-26] MEDS ORDERED: IBUPROFEN 200 MG TAB PO ONE (19:28)
--- NOTE | 2024-09-26 21:23 | RAD REPORT ---
EXAMINATION: XR RIGHT HUMERUS HISTORY: PAIN RIGHT TECHNIQUE: Multiple views of the right humerus were obtained. COMPARISON: None FINDINGS: No bone or joint abnormality detected.
--- NOTE | 2024-09-26 21:24 | RAD REPORT ---
Exam: XR Forearm Right Clinical history: PAIN Technique: Radiographic views of the right forearm. Findings: No fracture or dislocation seen. No suspicious osseous lesion. Joint alignment is maintained. Soft ti ssues are unremarkable.
--- NOTE | 2024-09-26 21:30 | ER ---
Nurse's Notes 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 pt able to move arm in triage. Coronavirus screen: Client denies travel out of the [place] in the last 14 days. Ebola Screen: Patient denies travel to an Ebola-affected area in the 21 days before illness onset. Initial Sepsis Screen: Does the patient meet any 2 criteria? No. Patient's initial sepsis screen is negative. Does the patient have a suspected source of infection? No. Patient's initial sepsis screen is negative. Risk Assessment: Do you want to hurt yourself or someone else? Patient reports no desire to harm self or others. Onset of symptoms was September 26, 2024. 19:26 Method Of Arrival: Ambulatory cm10 19:26 Acuity: CHIP 4 cm10 Triage Assessment: 19:27 General: Appears in no apparent distress. comfortable, Behavior is calm, cooperative. cm10 Pain: Complains of pain in dorsal aspect of right forearm Pain currently is 8 out of 10 on a pain scale. Neuro: No deficits noted. Level of Consciousness is awake, alert, obeys commands, Oriented to person, place, time, situation, Appropriate for age. Respiratory: No deficits noted. Airway is patent Respiratory effort is even, unlabored, Respiratory pattern is regular, symmetrical. Historical: - Allergies: 19:27 Bactrim; cm10 19:27 Latex; cm10 - PMHx: 19:27 Anxiety; cm10 - Immunization history:: Adult Immunizations unknown. - Infectious Disease History:: Denies. - Social history:: Smoking status: Patient denies any tobacco usage or history of. - Family history:: not pertinent. Screenin:40 [facility] ED Fall Risk Assessment (Adult) History of falling in the last 3 months, ha1 including since admission No falls in past 3 months (0 pts) Confusion or Disorientation No (0 pts) Intoxicated or Sedated No (0 pts) Impaired Gait No (0 pts) Mobility Assist Device Used No (0 pt) Altered Elimination No (0 pt) Score/Fall Risk Level 0 - 2 = Low Risk Oriented to surroundings, Maintained a safe environment, Educated pt \T\ family on fall prevention, incl call for assistance when getting out of bed, Hourly rounding (assess needs \T\ fall precautionary measures) done. Abuse screen: Denies threats or abuse. Denies injuries from another. Nutritional screening: No deficits noted. Tuberculosis screening: No symptoms or risk factors identified. Assessment: 21:40 Reassessment: Patient and/or family updated on plan of care and expected duration. Pain ha1 level reassessed. Patient is alert, oriented x 3, equal unlabored respirations, skin warm/dry/pink. Patient denies pain at this time. Patient states feeling better. Patient states symptoms have improved. Vital Signs: 19:26 BP 128 / 65; Pulse 61; Resp 15; Temp 98.5(O); Pulse Ox 100% ; Weight 58.06 kg; Height 5 cm10 ft. 1 in. ; Pain 8/10; 19:26 Body Mass Index 24.19 (58.06 kg, 154.94 cm) cm10 19:26 Pain Scale: Adult cm10 Humbird Coma Score: 09/27 19:33 Eye Response: spontaneous(4). Motor Response: obeys commands(6). Verbal Response: sp4 oriented(5). Total: 15. ED Course: 09/26 18:31 Patient arrived in ED. cj3 19:06 Philippe Recio MD is Attending Physician. sp4 19:27 Triage completed. cm10 19:27 Arm band placed on right wrist. Patient placed in an exam room, on a stretcher. cm10 20:27 Forearm Right XRAY In Process Unspecified. EDMS 20:27 Humerus Right XRAY In Process Unspecified. EDMS 21:23 Sling applied to right arm. kmf 21:40 Patient has correct armband on for positive identification. Placed in gown. Bed in low ha1 position. Call light in reach. Side rails up X 1. 21:40 No provider procedures requiring assistance completed. Patient did not have IV access ha1 during this emergency room visit. 21:41 Provided Education on: follow ups. ha1 Administered Medications: 19:35 Drug: Ibuprofen PO 600 mg PO once Route: PO; cm10 Medication: 21:41 VIS not applicable for this client. ha1 Outcome: 21:29 Discharge ordered by . luan :41 Discharged to home ambulatory, ha1 :41 Condition: stable 21:41 Discharge instructions given to patient, Instructed on discharge instructions, follow up and referral plans. Demonstrated understanding of instructions, follow-up care, 21:42 Patient left the ED. ha1 Signatures: Dispatcher [employer] EDMS Smiley Gomez, RN RN ha1 Philippe Recio MD MD sp4 Tejal Ivey RN RN cm10 Rita Rivero Darcy Scott 3
--- NOTE | 2024-09-26 21:30 | EDPHYS ---
Physician Documentation [facility] Name: Ana Davis Age: 44 yrs Sex: Female : 1980 Arrival Date: 09/26/2024 Time: 18:28 Bed DX3 Private MD: ED Physician Philippe Recio HPI: 09/26 19:06 This 44 yrs old Female presents to ER via Unassigned with complaints of Arm sp4 Injury, Nausea. 09/27 19:33 44-year-old female presents with acute right forearm contusion. There is right proximal sp4 forearm pain associated with recent contusion at home. Historical: - Allergies: 09/26 19:27 Bactrim; cm10 19:27 Latex; cm10 - PMHx: 19:27 Anxiety; cm10 - Immunization history:: Adult Immunizations unknown. - Infectious Disease History:: Denies. - Social history:: Smoking status: Patient denies any tobacco usage or history of. - Family history:: not pertinent. ROS: 09/27 19:33 Constitutional: Negative for fever, chills, and weight loss, positive right forearm sp4 pain and contusion All other systems are negative, Exam: 19:33 Constitutional: This is a well developed, well nourished patient who is awake, alert, sp4 and in no acute distress. Head/Face: Normocephalic, atraumatic. Eyes: Pupils equal round and reactive to light, extra-ocular motions intact. Lids and lashes normal. Conjunctiva and sclera are not injected. Cornea within normal limits. Periorbital areas with no swelling, redness, or edema. ENT: Nares patent. No nasal discharge, no septal abnormalities noted. Tympanic membranes are normal and external auditory canals are clear. Oropharynx with no redness, swelling, or masses, exudates, or evidence of obstruction, uvula midline. Mucous membranes moist. Neck: Trachea midline, no thyromegaly or masses palpated, and no cervical lymphadenopathy. Supple, full range of motion without nuchal rigidity, or vertebral point tenderness. Chest/axilla: Normal chest wall appearance and motion. Nontender with no deformity. No lesions are appreciated. Cardiovascular: Regular rate and rhythm with a normal S1 and S2. No gallops, murmurs, or rubs. Normal PMI, no JVD. No pulse deficits. Respiratory: Lungs have equal breath sounds bilaterally, clear to auscultation and percussion. No rales, rhonchi or wheezes noted. No increased work of breathing, no retractions or nasal flaring. Abdomen/GI: Soft, with normal bowel sounds. No distension or tympany. No guarding or rebound. No evidence of tenderness throughout. Back: No spinal tenderness. No costovertebral tenderness. Skin: Warm, dry with normal turgor. Normal color with no rashes, no lesions, and no evidence of cellulitis. MS/ Extremity: Pulses equal, no cyanosis. Neurovascular intact. Full, normal range of motion. Positive for right forearm tenderness at the proximal aspect on the radial side, no significant deformity, there is no pulse deficit Neuro: Awake and alert, GCS 15, oriented to person, place, time, and situation. Cranial nerves II-XII grossly intact. Motor strength 5/5 in all extremities. Sensory grossly intact. Psych: Awake, alert, with orientation to person, place and time. Behavior, mood, and affect are within normal limits Vital Signs: 09/26 19:26 BP 128 / 65; Pulse 61; Resp 15; Temp 98.5(O); Pulse Ox 100% ; Weight 58.06 kg; Height 5 cm10 ft. 1 in. ; Pain 8/10; 19:26 Body Mass Index 24.19 (58.06 kg, 154.94 cm) cm10 19:26 Pain Scale: Adult cm10 Gregg Coma Score: 09/27 19:33 Eye Response: spontaneous(4). Motor Response: obeys commands(6). Verbal Response: sp4 oriented(5). Total: 15. Procedures: 19:34 Splinting: Splint applied to right tricep, right elbow and palmar aspect of right sp4 forearm using sling, applied by myself. Examined by me, post splint application: neurovascular intact, 2+ distal pulses palpable, brisk capillary refill noted, Patient tolerated well, Advised sling for the next 3 days.. MDM: 09/26 19:26 Medical Screening Exam initiated sp4 21:28 ED course: EXAMINATION: XR RIGHT HUMERUS HISTORY: PAIN RIGHT TECHNIQUE: Multiple views sp4 of the right humerus were obtained. COMPARISON: None FINDINGS: No bone or joint abnormality detected.. ED course: Exam: XR Forearm Right Clinical history: PAIN Technique: Radiographic views of the right forearm. Findings: No fracture or dislocation seen. No suspicious osseous lesion. Joint alignment is maintained. Soft tissues are unremarkable. . 09/27 19:34 Differential diagnosis: closed fracture, contusion, abrasion, tendonitis. Data sp4 reviewed: vital signs, nurses notes, radiologic studies, plain films. Consideration of Admission/Observation Escalation of care including admission/observation considered. ED course: Sling was applied. Patient stable for discharge home.. 09/26 19:33 Order name: Forearm Right XRAY; Complete Time: 21:26 sp4 09/26 19:33 Order name: Humerus Right XRAY; Complete Time: 21:26 sp4 09/26 21:26 Order name: Sling: applied by MD ; Complete Time: 21:30 sp4 09/26 21:40 Order name: Ice pack; Complete Time: 21:40 ha1 Administered Medications: 09/26 19:35 Drug: Ibuprofen PO 600 mg PO once Route: PO; cm10 Disposition Summary: 09/26/24 21:29 Discharge Ordered Notes: Location: Home sp4 Problem: new sp4 Symptoms: have improved sp4 Condition: Stable sp4 Diagnosis - Soft tissue contusion right proximal forearm, initial encounter sp4 Followup: sp4 - With: Private Physician - When: As needed - Reason: Discharge Instructions: - Discharge Summary Sheet sp4 - Contusion, [id number] sp4 Forms: - Patient Portal Instructions sp4 Signatures: Dispatcher [employer] EDSmiley Cruz RN RN ha1 Philippe Recio MD MD sp4 Tejal Ivey RN RN cm10
[2024-09-26 22:11] VITALS: BP 128/65; TEMP 98.5; O2SAT 100
== END 2024-09-26 21:42 | disposition home or self-care (01) ==
LOC: ER 18:28
DX: S50.11XA Contusion of right forearm, initial encounter (principal)
CPT/HCPCS: 99283